=== PATIENT | female | born 1970 | race Caucasian/White ===

== ENCOUNTER 2020-02-25 10:35 | Outpatient (REF) | payer MEDICAID, SELFPAY ==
--- NOTE | 2020-02-25 | US_ITS ---
EXAMINATION: US COMPLETE ABDOMEN WITH LIVER ELASTOGRAPHY CLINICAL INFORMATION: Chronic hepatitis C. COMPARISON: CT abdomen and pelvis IV contrast 05/27/2019 TECHNIQUE: Real-time imaging of the abdominal viscera. Noninvasive ultrasound liver fibrosis assessment is performed using Timi ElastPQ point quantification shear wave elastography (pSWE) with a 5 MHz transducer. Multiple elastography samples are obtained. FINDINGS: PANCREAS: Normal. The visualized pancreatic head and body are normal in appearance. The remainder of the pancreas is obscured from visualization by the overlying bowel gas. ABDOMINAL AORTA: The proximal, middle and distal aortic segments are normal in caliber. INFERIOR VENA CAVA: Visualized portions are normal. LIVER: Normal. The liver demonstrates normal size, contour and echogenicity. There is an anechoic cyst right hepatic lobe measuring 0.6 x 0.6 x 0.7 cm. No additional lesions seen. The right lobe measures 15.7 cm in length. The left lobe measures 12.6 cm in length. There is normal hepatopedal flow seen in the main portal vein on Doppler exam. Shear wave elastography provides a median stiffness of 1.74 m/s (reference: normal median stiffness is 0.81 - 1.22 m/s). The IQR/median stiffness to assess sampling precision is 0.21 (reference: optimal IQR/median stiffness is under 0.3). GALLBLADDER: The gallbladder has been surgically removed. COMMON BILE DUCT: Normal in caliber measuring 1.0 cm in diameter. RIGHT KIDNEY: There is an anechoic cyst midpole measuring 0.6 x 0.6 x 0.8 cm. No additional cyst seen. No hydronephrosis. No renal calculi or other focal parenchymal lesions. The kidney measures 11.6 cm in maximum dimension. LEFT KIDNEY: Normal. No hydronephrosis. No renal calculi or focal parenchymal lesions. The kidney measures 11.4 cm in maximum dimension. SPLEEN: Normal. The spleen measures 11.1 cm in maximum dimension. FREE FLUID: None. IMPRESSION: 1. Mild hepatic steatosis without focal lesion. Small cyst midpole right kidney. Gallbladder has been surgically removed. 2. Elastography: Btob-br-roczyxfa fibrosis with normal IQR median. Findings correlate with Metavir score of F2-F3.
== END 2020-02-25 10:36 | disposition home or self-care (01) ==
LOC: HO.US 10:35
PROVIDERS: PCP Internal Medicine; Visit Provider Internal Medicine
DX: B16.2 Acute hepatitis B without delta-agent with hepatic coma (principal)
CPT/HCPCS: 76705; 76981

== ENCOUNTER → 2020-05-04 13:43 | Outpatient (BNVA) | payer MEDICAID, SELFPAY | PROVIDERS: PCP Internal Medicine; Visit Provider Nurse Practitioner Family | DX: Z76.89 Persons encountering health services in other specified circumstances (principal) ==

== ENCOUNTER → 2020-06-05 14:50 | Outpatient (BNVA) | payer MEDICAID, SELFPAY | PROVIDERS: PCP Internal Medicine; Visit Provider Nurse Practitioner Family | DX: M47.816 Spondylosis without myelopathy or radiculopathy, lumbar region (principal) | CPT/HCPCS: 99202 ==

== ENCOUNTER → 2020-08-06 14:11 | Outpatient (BNVA) | payer MEDICAID, SELFPAY | PROVIDERS: PCP Internal Medicine; Visit Provider Nurse Practitioner Family ==

== ENCOUNTER → 2020-09-02 11:29 | Outpatient (BNVA) | payer MEDICAID, SELFPAY | PROVIDERS: PCP Internal Medicine; Visit Provider Nurse Practitioner Family ==

== ENCOUNTER 2020-10-20 06:30 | Outpatient (REF) | payer MEDICAID, SELFPAY ==
--- NOTE | ~2020-10-20 | FL_ITS ---
EXAMINATION: XR FLUOROSCOPY WITH IMAGES CLINICAL INFORMATION: 47.816 - Spondylosis without myelopathy or radiculopathy COMPARISON: CT abdomen and pelvis 05/27/2019 TECHNIQUE: Fluoroscopy performed by Sarahi Olivas NP. Fluoroscopy time: 0.6 minutes DAP: 6.58 Gycm2 Images: 6 FINDINGS: There is transitional vertebrae L5 with right hemisacralization. There are bilateral spinal needles seen overlying the outer aspect of the lower lumbar neural foramina with contrast noted in the nerve sheaths at L2-L3, L3-L4, L4-L5. No visible vascular communication. FL/FL guidance in treatment room IMPRESSION: Fluoroscopy for pain management procedures.
== END 2020-10-20 06:31 | disposition home or self-care (01) ==
LOC: HO.RADIR 06:30
PROVIDERS: Visit Provider Anesthesiology
DX: M47.816 Spondylosis without myelopathy or radiculopathy, lumbar region (principal)
CPT/HCPCS: 64493; 64494; Q9967

== ENCOUNTER → 2020-10-27 14:58 | Outpatient (BNVA) | payer MEDICAID, SELFPAY | PROVIDERS: Visit Provider Nurse Practitioner Family ==

== ENCOUNTER → 2020-10-29 12:09 | Outpatient (BNVA) | payer MEDICAID, SELFPAY | PROVIDERS: PCP Internal Medicine; Visit Provider Anesthesiology ==

== ENCOUNTER → 2020-12-01 15:22 | Outpatient (BNVA) | payer MEDICAID, SELFPAY | PROVIDERS: Visit Provider Nurse Practitioner Family ==

== ENCOUNTER 2021-01-28 11:58 | Day surgery (SDC) | payer MEDICAID, SELFPAY ==
[2021-01-22 11:06] VITALS: BMI 29.1
--- NOTE | 2021-01-27 10:21 | HO.ANESPROP2 ---
Documented by User: Monse Nunez NP 01/27/21 10:44 HPI - Anesthesia Eval Consult details Narrative: 50yo F for Bilateral Medial Branch Radiofrequency AB,L3-L4-DR L5 PMFSH Active Problems Active Problems: All Active Problems (Updated 07/01/20 @ 11:48 by Alexandrea Johnston, SHAE) Spondylosis of lumbar region without myelopathy or radiculopathy (Acute) Past Medical History Medical History Chronic back pain Constipation Diverticulitis Fall down stairs GERD (gastroesophageal reflux disease) Hepatitis C Hypothyroid Knee pain, left Low back pain Numbness and tingling of right arm Rectal bleeding Family History Family History Father No problems noted. Mother COPD (chronic obstructive pulmonary disease) High blood pressure Diabetes HIV (human immunodeficiency virus infection) Asthma Depression Lung cancer Maternal Grandmother Bone cancer Maternal Uncle AD (Alzheimer's disease) Lung cancer Maternal Aunt Skin cancer Surgical History Surgical History History of bowel resection History of exploratory laparotomy Social History Social History Household Members: Children Alcohol intake: never Patient Tobacco Use Status: Current everyday Tobacco user Tobacco use type: Cigarette Cigarettes Per Day: 5 Smoked in Last 30 Days: Yes Patient Given Instructions on How to Stop Smoking: Yes Date Education Initiated: 01/22/21 Use of substances other than those prescribed or required for medical reasons: Yes Substance Use Type: Marijuana Substance Use Frequency: Daily Are you DNR?: No Advance Directives: No Advance Directives Information Provided: No Advance Directives on File: No Meds Allergies Allergy/AdvReac Type Severity Reaction Status Date / Time No Known Allergies Allergy Verified 01/28/21 12:42 [No Known Allergies*] Home Medications Medication Instructions Recorded Confirmed Last Taken Type clonazepam 0.5 mg tablet 0.5 mg PO TID 05/04/20 01/22/21 01/28/21 06:00 History levothyroxine 125 mcg capsule 125 mcg PO DAILY 05/04/20 01/22/21 01/28/21 06:00 History loratadine 10 mg tablet (Claritin) 10 mg PO DAILY 05/04/20 01/22/21 Unknown History methocarbamol 750 mg tablet 750 mg PO Q8H 05/04/20 01/22/21 Unknown History (Robaxin-750) zolpidem 5 mg tablet (Ambien) 5 mg PO BEDTIME PRN 05/04/20 01/22/21 Unknown History omeprazole 20 mg capsule,delayed 10 mg PO DAILY cap 10/27/20 01/22/21 01/28/21 06:00 History release Exam Exam Date and Time: January 27, 2021 1021 Height,Weight and Vital Signs: Height 5 ft 4 in Weight 77.1 kg Assessment and Plan Assessment Anesthesia Assessment: Chart Reviewed Documented by User: Evan Franklin MD 01/28/21 13:10 [facility] Past Medical History Medical History Chronic back pain Constipation Diverticulitis Fall down stairs GERD (gastroesophageal reflux disease) Hepatitis C Hypothyroid Knee pain, left Low back pain Numbness and tingling of right arm Rectal bleeding Family History Family History Father No problems noted. Mother COPD (chronic obstructive pulmonary disease) High blood pressure Diabetes HIV (human immunodeficiency virus infection) Asthma Depression Lung cancer Maternal Grandmother Bone cancer Maternal Uncle AD (Alzheimer's disease) Lung cancer Maternal Aunt Skin cancer Family history of problems with anesthesia: No Surgical History Surgical History History of bowel resection History of exploratory laparotomy History of Problems with Anesthesia: No Social History Social History Household Members: Children Alcohol intake: never Patient Tobacco Use Status: Current everyday Tobacco user Tobacco use type: Cigarette Cigarettes Per Day: 5 Smoked in Last 30 Days: Yes Patient Given Instructions on How to Stop Smoking: Yes Date Education Initiated: 01/22/21 Use of substances other than those prescribed or required for medical reasons: Yes Substance Use Type: Marijuana Substance Use Frequency: Daily Are you DNR?: No Advance Directives: No Advance Directives Information Provided: No Advance Directives on File: No Meds Allergies Allergy/AdvReac Type Severity Reaction Status Date / Time No Known Allergies Allergy Verified 01/28/21 12:42 [No Known Allergies*] Home Medications Medication Instructions Recorded Confirmed Last Taken Type clonazepam 0.5 mg tablet 0.5 mg PO TID 05/04/20 01/22/21 01/28/21 06:00 History levothyroxine 125 mcg capsule 125 mcg PO DAILY 05/04/20 01/22/21 01/28/21 06:00 History loratadine 10 mg tablet (Claritin) 10 mg PO DAILY 05/04/20 01/22/21 Unknown History methocarbamol 750 mg tablet 750 mg PO Q8H 05/04/20 01/22/21 Unknown History (Robaxin-750) zolpidem 5 mg tablet (Ambien) 5 mg PO BEDTIME PRN 05/04/20 01/22/21 Unknown History omeprazole 20 mg capsule,delayed 10 mg PO DAILY cap 10/27/20 01/22/21 01/28/21 06:00 History release Exam Airway Mallampati Class: II TM Dist: >3cm Neck ROM: Full Loose/Missing/Broken Teeth: No Heart: rrr+[id number] Lungs: cta b/l Assessment and Plan Assessment Anesthesia Assessment: Anesthesia Plan Discussed and PAT Visit Final Anesthetic Review Family History of Problems with Anesthesia: No History of Problems with Anesthesia: No NPO: Yes ASA Class: II Final Preanesthetic Review: No Changes in Pt Med Stat, Meds/Allgs Chart Reviewed, Consent Obtained/Reviewed and Anes Risks/Benef Reviewed Patient Risk: Intermediate Procedure Risk: Low Assessment/Block/Sedation in SS: Assess/Block/Sedation-SS Anesthetic Plan Anesthetic Plan: MAC: and Regional Block Disposition: Standard PACU
--- NOTE | ~2021-01-28 | FL_ITS ---
EXAMINATION: XR FLUOROSCOPY WITH IMAGES CLINICAL INFORMATION: Medial branch block. COMPARISON: RF fluoroscopy 10/20/2020. TECHNIQUE: Fluoroscopy performed by Dr. Loyd Nolan. Fluoroscopy time: 1.0 minutes DAP: 15.5 mGycm2 Images: 2 FINDINGS: There are needles positioned adjacent to L5, L4 and S1 pedicles on the right and left L5, S1 pedicles on the left for pain management. No gross bony abnormality. FL/FL guidance in OR IMPRESSION: Fluoroscopy was provided to referring physician for medial branch RFA.
[2021-01-28 12:43] VITALS: BP 131/75; PULSE 60; RESP 18; TEMP 36.6; O2SAT 97
[2021-01-28] MEDS: Lactated Ringers 1,000 ML 100 ML IVCONT (12:57)
--- NOTE | 2021-01-28 13:25 | MHC.SHP ---
Pre-Procedural Eval Section A Date of Service: 01/28/21 Section B Chief Complaint: spondylosis lumbar Details of Present Illness: as above Relevant Family History (Specify if Yes): No Relevant Social History: None Present Medications: see Short Stay Collaborative assessment Allergies: Allergies Allergy/AdvReac Type Severity Reaction Status Date / Time No Known Allergies Allergy Verified 01/28/21 12:42 [No Known Allergies*] Review of Systems Sugical H&P ROS: Negative: Constitution, Cardiovascular, Respiratory, Neurological, Psychiatric, Hem-Onc, Allergic/Immunologic, Gastrointestinal, Genitourinary, Musculoskeletal, Integumentary, Endocrine and Eyes/Ears/Nose/Throat Exam Surgical H&P Exam: Normal: HEENT, Normal: Heart, Normal: Lungs, Normal: Extremities, Normal: Abdomen, Normal: Skin and Normal: Neurological Plan Diagnosis/Plan: Unchanged I have reviewed the history and physical and performed a pertinent physical examination on my patient. No changes have occurred unless specified.
[2021-01-28 14:40] VITALS: BP 151/81; PULSE 54; RESP 20; TEMP 36.9; O2SAT 96
--- NOTE | 2021-01-28 14:40 | P.BOP_ITS ---
Brief Operative Note Date of Service: 01/28/21 Pre-op diagnosis: Spondylosis lumbar spine Post-op diagnosis: same Procedure: Radiofrequency ablation bilateral L3-L4 does ramus L5 medial branches Implants: None Surgeon: Loyd Nolan MD Anesthesia: MAC Was an Senior Clinical Consultant used for this Procedure?: No Estimated blood loss (mL): 6 Pathology: none sent Condition: stable Disposition: PACU
--- NOTE | 2021-01-28 14:41 | W.PM.OPN ---
Operative Note Operative Note Date of Service: 01/28/21 Narrative: Informed consent of was obtained on the patient, risks and benefits explained, patient signed informed consent. She was brought to the operating room and she was positioned prone on the operating table. [place] monitors were applied patient was moderately sedated. Time-out was performed delineating name and date of of the patient, nature of the procedure, risk of fire, need for antibiotics, need for DVT prophylaxis,. The patient's lower back was prepped with ChloraPrep twice and draped with stick utility towel. Sterilely draped C-arm was brought over the operating field and sq picture of the L4 and L5 vertebra as well as sacral bone were demonstrated on the screen. Tilting machine ipsilateral to each side as well as few degrees to the foot the position of the each target was delineated on the screen. The targets were delineated as the confluence of the superior articular process of L4 with corresponding transverse process bilaterally, as well as consult ends of the superior articular process of L5 with corresponding transverse process bilaterally as well as connection of superior articular process of S1 bilaterally with bilateral sacral alae. Projection of the point of interest to the skin was injected with small amount of mixture of lidocaine 2% and bupivacaine 0.5%. After that radiofrequency cannulas 100 mm long was driven to were the point of interest under x-ray guidance. When needles reached the point of interests on the right and sequentially on the left the stylets were removed from the needles and nitinol testing stylets were inserted into the cannulas. Motor and sensory testing was performed there were no response to motor testing indicating stimulation of the somatic nerve. After that the nitinol wires were removed, the cannulas were injected with small amount of mixture of lidocaine 2% with bupivacaine 0.5% and trace amount of Kenalog. After that the needle wires were reinserted and the energy application was performed for 90 seconds and 89?. After that the I rotation of the needles was done and energy application was repeated. The patient tolerated procedure fairly well the needles were removed sterile dressing was applied. Patient was awaken taken outside of the operating room to recovery room where she recovered uneventfully. She went home without immediate complications.
[2021-01-28] MEDS: oxyCODONE HCl Immed Release 5 MG TABLET 10 MG PO (14:49)
[2021-01-28] MEDS: Acetaminophen 325 MG TABLET 650 MG PO (14:49)
[2021-01-28 14:57] VITALS: BP 160/93; PULSE 50; RESP 18; O2SAT 98
== END 2021-01-28 15:31 | disposition home or self-care (01) ==
PROVIDERS: PCP Internal Medicine; Visit Provider Anesthesiology
PROC: (CPT 64635; principal; 2021-01-28 13:20)
DX: M47.816 Spondylosis without myelopathy or radiculopathy, lumbar region (principal); M43.16 Spondylolisthesis, lumbar region; M54.5 Low back pain
CPT/HCPCS: 64635; 64636 ×2; J2250; J3010; J3300

== ENCOUNTER → 2021-02-01 13:51 | Outpatient (BNVA) | payer MEDICAID, SELFPAY | PROVIDERS: PCP Internal Medicine; Visit Provider Anesthesiology | DX: M47.816 Spondylosis without myelopathy or radiculopathy, lumbar region (principal) | CPT/HCPCS: 99212 ==

== ENCOUNTER → 2021-03-03 10:26 | Outpatient (BNVA) | payer MEDICAID, SELFPAY | PROVIDERS: PCP Internal Medicine; Visit Provider Anesthesiology | DX: M47.816 Spondylosis without myelopathy or radiculopathy, lumbar region (principal) | CPT/HCPCS: 99212 ==

== ENCOUNTER → 2021-03-31 14:03 | Outpatient (BNVA) | payer MEDICAID, SELFPAY | PROVIDERS: PCP Internal Medicine; Visit Provider Nurse Practitioner Family ==

== ENCOUNTER 2021-04-22 13:58 | Outpatient (REF) | payer MEDICAID, SELFPAY ==
--- NOTE | ~2021-04-22 | XR_ITS ---
EXAMINATION: XR LUMBOSACRAL SPINE CLINICAL INFORMATION: Spondylosis without myelopathy or radiculopathy, lumbar region COMPARISON: CT abdomen pelvis 05/27/2019. XR lumbar spine 11/19/2018. TECHNIQUE: AP and lateral views of the lumbosacral spine are obtained. A lateral coned-down view of the lumbosacral junction is obtained. FINDINGS: The transitional vertebra at the lumbosacral junction with partial sacralization of the right L5 vertebra is again noted. There is new mild disc space narrowing and a mild grade 1 anterolisthesis of L4 on L5. There is mild bilateral facet arthropathy in the lower lumbar levels. XR/XR lumbar spine 2-3V IMPRESSION: New mild disc space narrowing at L4-L5 and mild grade 1 anterolisthesis of L4. Partial sacralization of the right side of the L5 vertebra is again noted.
== END 2021-04-22 13:59 | disposition home or self-care (01) ==
LOC: HO.XRAY 13:58
PROVIDERS: PCP Internal Medicine; Visit Provider Nurse Practitioner Family
DX: M47.816 Spondylosis without myelopathy or radiculopathy, lumbar region (principal)
CPT/HCPCS: 72100

== ENCOUNTER 2022-03-04 15:57 | Outpatient (REF) | payer MEDICAID, SELFPAY ==
--- NOTE | ~2022-03-04 | MR_ITS ---
EXAMINATION: MR LUMBAR SPINE WITHOUT CONTRAST CLINICAL INFORMATION: Lower back pain COMPARISON: Lumbar spine x-ray 04/22/2021 TECHNIQUE: MRI of the lumbar spine was obtained using routine sequences without contrast. FINDINGS: Transitional lumbosacral anatomy. In keeping with prior numbering, the last well-formed disc space is designated L5-S1 with partial sacralization of L5 which articulates with the sacrum on the right. There is suggestion of a hypoplastic rib on the right at T12 Stable grade 1 anterolisthesis of L4 on L5 measuring 4 m 5 mm. No suspicious marrow signal or focal osseous lesion. The vertebral body heights are maintained. There is disc desiccation at L4-L5 with relative preservation of disc height. The conus medullaris terminates at the level of T12-L1. The distal spinal cord is normal in appearance. The cauda equina nerve roots appear normal. No significant abnormalities of the paraspinal musculature.. Limited evaluation of the intra-abdominal structures without significant abnormalities. Small right renal cyst. The abdominal aorta is of normal contour and caliber. SPINAL LEVELS: T12-L1: No significant spinal canal or neural foraminal narrowing L1-L2: No significant spinal canal or neuroforaminal narrowing. L2-L3: No significant spinal canal or neuroforaminal narrowing. L3-L4: No significant spinal canal or neuroforaminal narrowing. Shallow disc bulge and mild facet arthropathy. L4-L5: Anterolisthesis with posterior disc uncovering. Severe facet arthropathy with large bilateral joint effusions. Mild central spinal canal stenosis. Moderate bilateral neural foraminal narrowing with possible impingement of the right greater than left extraforaminal nerve roots L5-S1: No significant spinal canal or neuroforaminal narrowing. A right lateral disc protrusion may impinge the extraforaminal right L5 nerve root. MR/MR lumbar spine wo con IMPRESSION: 1. Transitional lumbosacral anatomy with partial sacralization of L5 2. At L4-L5, there is stable grade 1 anterolisthesis on the basis of advanced facet arthropathy with large joint effusions. There is mild spinal canal stenosis and moderate bilateral neural foraminal narrowing with possible impingement of the right greater than left extraforaminal nerve roots. 3. L5-S1, a right lateral disc protrusion may impinge the extraforaminal right L5 nerve root.
== END 2022-03-04 15:58 | disposition home or self-care (01) ==
LOC: HO.MRI 15:57
PROVIDERS: Visit Provider Internal Medicine
DX: M54.41 Lumbago with sciatica, right side (principal); M54.42 Lumbago with sciatica, left side
CPT/HCPCS: 72148

== ENCOUNTER 2023-02-24 11:13 | Outpatient (AMB) | payer MEDICAID, SELFPAY ==
--- NOTE | 2023-02-24 07:40 | A.OFFVIS_ITS ---
Intake Intake Visit Reasons: LDCT SD Allergies No Known Allergies [No Known Allergies*] Allergy (Verified 03/31/21 14:04) HPI LDCT SD HPI Details Initial telehealth phone visit for this 52yo smoker with a 20PYH. Patient has been smoking since age 20 for 32 years at 1/2-1ppd. She is currently down to 3 cig/day. . Denies marijuana use. Denies second hand smoke exposure. Denies exposure to chemicals or substances like asbestos. . Denies known family history of lung cancer. Denies personal history of cancers. . Denies chest CT in last year. Abdominal CT done 05/27/2019 noted a 0.2cm granuloma in RLL . Denies recent travel outside the [place]. Denies recent respiratory illness or recent hospitalization for respiratory issues. Reports testing positive for COVID once. Denies receiving COVID Vaccine. . Denies fever, chills, new/worsening cough, hemoptysis, hoarseness or dysphagia. Denies significant chest pain, significant dyspnea or unintentional weight loss. Patient Lung Cancer Screening Questionnaire reviewed with patient by provider. . Shared Decision Making Completed. Patient meets criteria. Discussed in detail with patient, the risk vs benefit of LDCT screening. Patient consents to proceed with scan. Discussed smoking cessation. [facility] Medical History (Updated 02/24/23 @ 09:15 by Idalia Cotto PA-C) Microscopic hematuria Hypothyroid Hepatitis C GERD (gastroesophageal reflux disease) Diverticulitis Rectal bleeding Constipation Nicotine dependence, cigarettes, uncomplicated Chronic back pain Knee pain, left Numbness and tingling of right arm Fall down stairs Surgical History (Updated 02/02/23 @ 12:54 by Idalia Cotto PA-C) History of radiofrequency ablation (RFA) of nerve of lumbar spine History of cholecystectomy History of bowel resection History of exploratory laparotomy Family History Father No problems noted. Mother COPD (chronic obstructive pulmonary disease) High blood pressure Diabetes HIV (human immunodeficiency virus infection) Asthma Depression Lung cancer Maternal Grandmother Bone cancer Maternal Uncle AD (Alzheimer's disease) Lung cancer Maternal Aunt Skin cancer Social History (Updated 02/24/23 @ 09:17 by Idalia Cotto PA-C) Household Members: Children Alcohol intake: never Patient Tobacco Use Status: Current everyday Tobacco user Tobacco use type: Cigarette Cigarettes Per Day: 3 Years Smoked: (onset 20to, 1/2-1ppd x 32yrs, now 3cig/day - 20pyh) Substance Use Type: Marijuana Assessment & Plan Assessment & Plan (1) Nicotine dependence, cigarettes, uncomplicated: Comment: (Smoker - onset 20yo, 1/2-1ppd x 32yrs, now 3cig/day - 20pyh) Code(s): F17.210 - Nicotine dependence, cigarettes, uncomplicated Plan: - Telehealth SDM visit completed today via phone. - Patient meets criteria for LDCT for lung cancer screening purposes and is asymptomatic. - Smoking cessation counseling offered. Patients can always call [phone]. - Will arrange for a LDCT scan of the chest for screening purposes at [facility]. - Risks, benefits, and alternatives were discussed in detail and the patient agrees to proceed. - Risks discussed include but are not limited to: radiation exposure, anxiety during testing and while awaiting results, false negatives, false positives and possibility of additional intervention such as further imaging or surgical procedures for benign disease. - Benefits are obviously detection of lung cancer at an early stage which can lead to improved outcomes. - Discussed the importance of screening program compliance with adherence to yearly LDCT scan as scheduled - or sooner interval scans for personalized screening regimen. - Discussed follow up plan. Our office will send a letter discussing results and if needed set up phone call and office visit based on CT findings. - Patient educated on results categorization and the management decisions for suspicious findings potentially found on the screening LDCT scan. Any patient with a Lung RADS score of 3 or 4 will be reviewed by a multidisciplinary team at [facility] to form a plan of action in regards to scan findings. - If further work up is warranted for a suspicious lung finding this will be followed by the Lung Cancer Screening program in conjunction with the Thoracic Surgery Department at [facility]. - A copy of the office note and LDCT will be sent to the patient's PCP - as well as documentation on any associated further plans of care. - Incidental findings on LDCT are the PCP's responsibility. These findings are indicated with an S finding on the LDCT Assessment. A note discussing the findings will be sent to the PCP who is then responsible for further management. - All questions answered.? 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
== END 2023-02-24 11:15 | disposition home or self-care (01) ==
LOC: HO.HMS 11:13
PROVIDERS: PCP Internal Medicine; Visit Provider Physician Assistant Medical
DX: F17.210 Nicotine dependence, cigarettes, uncomplicated (principal)
CPT/HCPCS: G0296

== ENCOUNTER 2023-02-24 15:04 | Outpatient (REF) | payer MEDICAID, SELFPAY ==
--- NOTE | ~2023-02-24 | CT_ITS ---
EXAMINATION: CT CHEST LOW-DOSE SCREENING WITHOUT CONTRAST HISTORY: Asymptomatic patient meeting criteria for lung screening. PATIENT PACK-YEAR HISTORY: 32 Current Smoker: Yes If former smoker, years since quitting: COMPARISON: None available. TECHNIQUE: Multidetector volumetric non-contrast CT imaging of the chest was performed using low dose screening CT technique. Axial thin section 0.625 mm reformations in soft tissue and lung windows were obtained. Sagittal and coronal reformations were obtained. Axial MIP images were also created and reviewed. RECONSTRUCTED WIDTH: 1.25 mm x 1.25 mm TOTAL EXAM DLP: 59 mGy-cm CTDIvol: 1.46 L mGy FINDINGS: LUNGS: Mild centrilobular emphysema. No suspicious pulmonary nodule. No focal consolidation. Central airways are patent. PLEURA: No pleural effusion. LYMPH NODES: No bulky mediastinal, hilar or axillary lymphadenopathy. MEDIASTINUM: Great vessels are of normal caliber. Heart size is normal. No pericardial effusion. CORONARY ARTERY CALCIFICATIONS: None. CHEST WALL/BREASTS: No acute abnormality. UPPER ABDOMEN: This study was performed without contrast and with lower than standard dose, reducing the sensitivity for detection of small lesions in the upper abdomen. Status post cholecystectomy. OSSEOUS STRUCTURES: No destructive bone lesions. CT/CT lung screening IMPRESSION: No suspicious pulmonary nodule. LUNG-RADS CATEGORY ASSESSMENT: 1. Negative. No nodules or definitely benign nodules. Continue annual screening with low-dose CT in 12 months. Probability of malignancy less than 1%. INCIDENTAL FINDINGS (S CATEGORY): Finding: No incidental findings. Significance category: Normal or normal variant. RECOMMENDATION: Low dose lung CT. overall in 1 year. Visual estimate of coronary calcified plaque burden: None. However, this exam cannot replace a dedicated cardiac CT calcium score for accurate assessment. LUNG-RADS CATEGORY: 1 -- NEGATIVE
== END 2023-02-24 15:05 | disposition home or self-care (01) ==
LOC: HO.CT 15:04
PROVIDERS: PCP Internal Medicine; Visit Provider Physician Assistant Medical
DX: Z12.2 Encounter for screening for malignant neoplasm of respiratory organs (principal); F17.210 Nicotine dependence, cigarettes, uncomplicated
CPT/HCPCS: 71271; G0296

== ENCOUNTER 2023-03-15 08:56 | Outpatient (REF) | payer MEDICAID, SELFPAY ==
[2023-03-15 14:24] LABS: MANUAL DIFF FLAG NO
[2023-03-15 14:36] LABS: Basophils Percent Auto 0.4 % (0-2); Eosinophils Absolute Auto 0.1 X10*3/uL (0.0-0.4); Eosinophils Percent Auto 1.9 % (0-4); Hematocrit 37.3 % (37.0-47.0); Lymphocytes Absolute Auto 2.6 X10*3/uL (1.2-4.9); Lymphocytes Percent Auto 49.8 % (20-40); Mean Corpuscular HGB Conc 32.2 g/dl (31.0-35.0); Mean Corpuscular Hemoglobin 28.6 pg (27.0-33.0); Mean Platelet Volume 11.1 fL (9.4-12.3); Monocytes Absolute Auto 0.5 X10*3/uL (0.1-1.2); Monocytes Percent Auto 8.7 % (2-11); Neutrophils Percent Auto 39.2 % (45-73); Platelet Count 216 X10*3/uL (160-400); Red Blood Count 4.19 X10*6/uL (4.20-5.50); Red Cell Distribution Width 13.2 % (11.0-16.0); White Blood Count 5.2 X10*3/uL (4.8-10.8)
[2023-03-15 14:38] LABS: INTERNATIONAL NORM RATIO 0.9 (0.9-1.1); Prothrombin Time 11.5 SEC (11.1-13.3)
[2023-03-15 15:00] LABS: Estimated Average Glucose 100 mg/dL; Hemoglobin A1c % 5.1 % (<6.0)
[2023-03-15 15:12] LABS: Alanine Aminotransferase 10 U/L (0-31); Albumin Level 3.7 g/dL (3.5-5.0); Alkaline Phosphatase 76 U/L (39-117); Anion Gap 12 (12-20); Aspartate Amino Transferase 19 U/L (5-31); Bilirubin Total 0.4 mg/dL (0.0-1.0); Blood Urea Nitrogen 13 mg/dL (9-16); Calcium 9.3 mg/dL (8.4-10.2); Carbon Dioxide 29 mmol/L (22-29); Chloride 103 mmol/L (96-108); Cholesterol 175 mg/dL (<200); Estimated Glomerular Filt Rate > 60; Glucose Fasting 105 mg/dL (60-99); HDL Cholesterol 52 mg/dL (>40); LDL Cholesterol Calculated 109 mg/dL (<100); Potassium 3.6 mmol/L (3.3-5.1); Sodium 140 mmol/L (135-145); Total Protein 8.3 g/dL (6.5-8.0); Triglycerides 74 mg/dL (<150)
[2023-03-15 15:30] LABS: TSH reflex Free T4 1.14 uIU/mL (0.32-4.0)
[2023-03-16 04:34] LABS: HIV AB/AG Nonreactive (Nonreactive); HIV Num 1 0.07 S/CO (0.00-0.99)
[2023-03-18 15:14] LABS: HCV RNA PCR Qn 1.62 Log IU/mL (NOT DETECTED); HCV RNA PCR Qn 42 IU/mL (NOT DETECTED)
[2023-03-22 16:04] LABS: FIB-ALT 11 U/L (6-29); FIB-Alpha-2-Macroglobulin 428 mg/dL (106-279); FIB-Apolipoprotein A1 155 mg/dL (101-198); FIB-GGT 21 U/L (3-70); FIB-Haptoglobin 111 mg/dL (43-212); FIB-Total Bilirubin 0.3 mg/dL (0.2-1.2); Liver Fibrosis Score 0.37; Liver Fibrosis Stage F1-F2; Nec Inflam Act Grade A0; Nec Inflam Act Score 0.03
== END 2023-03-15 08:57 | disposition home or self-care (01) ==
LOC: HO.CHCLDS 08:56
PROVIDERS: Referring Provider Nurse Practitioner Psychiatric/Mental Health; Visit Provider Internal Medicine
DX: I10 Essential (primary) hypertension (principal); B18.2 Chronic viral hepatitis C
CPT/HCPCS: 36415; 80053; 80061; 81596; 83036; 84443; 85025; 85610; 87389; 87522

== ENCOUNTER 2023-03-22 10:41 | Outpatient (REF) | payer MEDICAID, SELFPAY ==
--- NOTE | ~2023-03-22 | XR_ITS ---
EXAMINATION: XR KNEE, RIGHT CLINICAL INFORMATION: Pain in the right COMPARISON: None available. TECHNIQUE: Four views of the right knee. FINDINGS: There is narrowing of the medial compartment of right knee joint, more prominent on weightbearing view and marginal spurring seen medially there is patellar spurring mucosal There is no joint effusion XR/XR knee RT 4V IMPRESSION: Changes of osteoarthritis more prominent in the medial compartment of right knee joint.
--- NOTE | ~2023-03-22 | XR_ITS ---
EXAMINATION: XR KNEE, LEFT CLINICAL INFORMATION: Left knee pain COMPARISON: None available. TECHNIQUE: Four views of the left knee. FINDINGS: There are mild degenerative changes with marginal spurring seen through the medial tibial plateau, medial femoral condyle, lateral tibial plateau and patella. There is no narrowing of the joint spaces and no joint effusion seen. There is no fracture or subluxation. XR/XR knee LT 4V IMPRESSION: Mild tricompartmental degenerative changes.
== END 2023-03-22 10:42 | disposition home or self-care (01) ==
LOC: HO.XRAY 10:41
PROVIDERS: PCP Internal Medicine; Visit Provider Internal Medicine
DX: M25.561 Pain in right knee (principal); M25.562 Pain in left knee; G89.29 Other chronic pain
CPT/HCPCS: 73564

== ENCOUNTER 2023-04-04 11:17 | Outpatient (REF) | payer MEDICAID, SELFPAY ==
[2023-04-07 04:29] LABS: HPV mRNA E6/E7 rflx Not Detected (Not Detected)
== END 2023-04-04 11:18 | disposition home or self-care (01) ==
LOC: HO.CHCLNP 11:17
PROVIDERS: Visit Provider Advanced Practice Midwife
DX: Z01.419 Encounter for gynecological examination (general) (routine) without abnormal findings (principal); R35.0 Frequency of micturition
CPT/HCPCS: 87086; 87624; 88142

== ENCOUNTER 2023-05-12 13:51 | Outpatient (REF) | payer MEDICAID, SELFPAY ==
--- NOTE | ~2023-05-12 | MM_ITS ---
EXAMINATION: MM SCREENING DIGITAL BREAST TOMOSYNTHESIS, BILATERAL CLINICAL INFORMATION: Screening. Asymptomatic. COMPARISON: Mammography: None. Baseline exam. TECHNIQUE: Digital breast tomosynthesis is performed in both the craniocaudal and mediolateral oblique views along with computer-aided detection (CAD). Synthesized 2D images are generated from the tomosynthesis. FINDINGS: There are scattered areas of fibroglandular density (ACR BI-RADS breast composition Category b). There are no suspicious masses, suspicious grouped calcifications, or areas of architectural distortion in either breast. The parenchymal pattern is stable from prior exams. No skin or axillary abnormalities. MM/MM tomosynthesis screening BI IMPRESSION: No mammographic evidence of malignancy. ASSESSMENT: BI-RADS BI-RADS 1 - Negative RECOMMENDATION: Routine annual mammography screening. 1 year F/U This examination should not preclude the clinical evaluation of a suspicious palpable abnormality. This patient's information was entered into a reminder system with a target due date for their next mammogram.
== END 2023-05-12 13:52 | disposition home or self-care (01) ==
LOC: HO.MAMMO 13:51
PROVIDERS: PCP Internal Medicine; Visit Provider Internal Medicine
DX: Z12.31 Encounter for screening mammogram for malignant neoplasm of breast (principal)
CPT/HCPCS: 77063; 77067

== ENCOUNTER → 2023-05-12 14:15 | Outpatient (BNV) | payer MEDICAID, SELFPAY | PROVIDERS: PCP Internal Medicine; Visit Provider Radiology Diagnostic Radiology | DX: Z12.31 Encounter for screening mammogram for malignant neoplasm of breast (principal) | CPT/HCPCS: 77063; 77067 ==

== ENCOUNTER 2023-11-16 14:33 | Outpatient (REF) | payer MEDICAID, SELFPAY ==
[2023-11-16 17:36] LABS: MANUAL DIFF FLAG NO
[2023-11-16 17:47] LABS: Basophils Percent Auto 0.3 % (0-2); Eosinophils Absolute Auto 0.1 X10*3/uL (0.0-0.4); Hematocrit 38.3 % (37.0-47.0); Imm Gran Abs Auto 0.01 X10*3/uL (0.00-0.03); Imm Gran Pct Auto 0.2 % (0.0-0.4); Lymphocytes Absolute Auto 3.1 X10*3/uL (1.2-4.9); Lymphocytes Percent Auto 50.7 % (20-40); Mean Corpuscular HGB Conc 33.9 g/dl (31.0-35.0); Mean Corpuscular Volume 85.5 fL (80.0-98.0); Mean Platelet Volume 11.2 fL (9.4-12.3); Monocytes Absolute Auto 0.4 X10*3/uL (0.1-1.2); Monocytes Percent Auto 6.6 % (2-11); Neutrophils Absolute Auto 2.5 x10*3/uL (2.0-8.3); Neutrophils Percent Auto 41.2 % (45-73); Platelet Count 217 X10*3/uL (160-400); Red Blood Count 4.48 X10*6/uL (4.20-5.50); Red Cell Distribution Width 12.8 % (11.0-16.0)
[2023-11-16 17:56] LABS: Alanine Aminotransferase 10 U/L (0-31); Albumin Level 4.3 g/dL (3.5-5.0); Alkaline Phosphatase 77 U/L (39-117); Anion Gap 13 (12-20); Aspartate Amino Transferase 13 U/L (5-31); Bilirubin Direct 0.1 mg/dL (0.0-0.5); Bilirubin Total 0.3 mg/dL (0.0-1.0); Blood Urea Nitrogen 22 mg/dL (9-16); Calcium 10.4 mg/dL (8.4-10.2); Carbon Dioxide 29 mmol/L (22-29); Chloride 104 mmol/L (96-108); Estimated Glomerular Filt Rate > 60; Glucose Random 89 mg/dL (60-115); Potassium 4.3 mmol/L (3.3-5.1); Sodium 142 mmol/L (135-145); Total Protein 8.4 g/dL (6.5-8.0)
[2023-11-16 18:14] LABS: TSH reflex Free T4 1.21 uIU/mL (0.32-4.0)
[2023-11-17 15:03] LABS: Triiodothyronine T3 Total 103 ng/dL (76-181)
[2023-11-18 14:58] LABS: HCV Log PCR <1.18 NOT DETECTED Log IU/mL (NOT DETECTED); HepC Viral Load <15 NOT DETECTED IU/mL (NOT DETECTED)
== END 2023-11-16 14:34 | disposition home or self-care (01) ==
LOC: CF 14:33
PROVIDERS: Visit Provider Pediatrics
DX: B18.2 Chronic viral hepatitis C (principal); E03.9 Hypothyroidism, unspecified
CPT/HCPCS: 36415; 80048; 80076; 84443; 84480; 85025; 87522

== ENCOUNTER 2024-09-27 10:15 | Outpatient (REF) | payer MEDICAID, SELFPAY ==
--- OUTSIDE RECORDS SUMMARY | 2024-09-27 10:28 | XMS_ITS | Encounter Summary ---
Author Organization [employer] Address [address] [facility] [address] [place] [address] Care Team Providers Care Sprinkler Fitter Helper Name Role Phone Alexander La MD Primary Care Prov ider Reason for Visit * Reason Onset Date Comments Results 11/29/2023 Encounter Details Date Type Department Care Team ([facility] st Contact Info) Description 11/29/2023 Telephone [facility] [address] [place] [address] Alexander La MD [address] [place] [address] Results Social History Tobacco Use Types Packs/Day Years Used Date Smoking Tobacco: Every Day Cigarettes 0.5 30 Passive Smoke Exposure: Current Smokeless Tobacco: Never Alcohol Use Standard Drinks/Week Comments Never 0 (1 standard drink = 0.6 oz pur e alcohol) Housing Stability Answer Date Recorded What is your housing situation today? I do not have housing (Staying with others, in a hotel, in a senior care, living outside on the street, on a beach, in a car, or in a park 03/08/[address] you li ve. Do you have problems with any of the following? None of the above 03/08/2023 Food Insecurity Answer Date Recorded Within the past 12 months, y ou worried that your food would run out before you got money to buy more: Never True 03/08/2023 Within the past 12 months,th e food you bought just didn't last and you didn't have enough money to get more: Never True 05/2022 Transportation Answer Date Recorded In the past 12 months, has l ack of transportation kept you from medical appts, meetings, work or from getting things needed for daily living? Yes, it has kept me from medical appointments or getting medications. 03/08/2023 Utilities Answer Date Recorded In the past 12 months, has t he electric, gas, oil or water company threatened to shut off services in your home? No 03/08/2023 Comments No Sex and Gender Information Value Date Recorded Sex Assigned at Female 03/07/2022 10:15 AM EDT Legal Sex Female 10:15 AM EDT Gender Identity Choose not to disclose 10:15 AM EDT Sexual Orientation Choose not to disclose 2021 10:15 AM EDT documented as of this encounter Miscellaneous Notes * Telephone Encounter - Lise Horan RN - 11/29/2023 3:25 PM EDT T/C to pt. To inform that provider ordered MRI. Pt. Verbally agreed and understood. * Telephone Encounter - Lise Horan RN - 11/29/2023 1:07 PM EDT T/C to pt. For below message, pt. Verbally greed and understood for result. Pt. Also asking for order MRI for back pain. States she spoke with provider for MRI. Please review and advise for MRI request. * Telephone Encounter - Lise Horan RN - 11/29/2023 11:59 AM EDT Please review and advise for below message, result is in pt.'s chart. * Telephone Encounter - Corina Alan - 11/29/2023 11:31 AM EDT Tc from pt requesting a call back with lab results from 11/15 documented in this encounter Plan of Treatment Upcoming Encounters Date Type Department Care Team (Late st Contact Info) Description 10/02/2024 3:00 PM EDT Office Visit [facility] D[facility] [address] [place] [address] Aminata Rosas DMD 02/21/2025 2:00 PM EDT Office Visit [facility] [address] [place] [address] Loy Melchor documented as of this encounter Visit Diagnoses Not on filedocumented in this encounter Care Teams Sprinkler Fitter Helper Relationship Specialty Start Date End Date McAlexander Valenzuela MD [address] [place] [address] PCP - General Internal Medicine 09/24/19 Jani Coreas Research AdministratorSupervisor Shuttle Fitting 01/25/23 Doug Posada Jr Research AdministratorSupervisor Shuttle Fitting 05/13/24 documented as of this encounter
[2024-09-27 14:20] LABS: MANUAL DIFF FLAG NO
[2024-09-27 14:26] LABS: Basophils Percent Auto 0.4 % (0-2); Eosinophils Absolute Auto 0.1 X10*3/uL (0.0-0.4); Eosinophils Percent Auto 0.8 % (0-4); Hematocrit 38.2 % (37.0-47.0); Hemoglobin 12.9 g/dl (12.0-16.0); Imm Gran Abs Auto 0.01 X10*3/uL (0.00-0.03); Imm Gran Pct Auto 0.1 % (0.0-0.4); Lymphocytes Absolute Auto 3.1 X10*3/uL (1.2-4.9); Lymphocytes Percent Auto 42.5 % (20-40); Mean Corpuscular HGB Conc 33.8 g/dl (31.0-35.0); Mean Corpuscular Hemoglobin 28.9 pg (27.0-33.0); Mean Corpuscular Volume 85.5 fL (80.0-98.0); Mean Platelet Volume 10.6 fL (9.4-12.3); Monocytes Absolute Auto 0.5 X10*3/uL (0.1-1.2); Monocytes Percent Auto 7.2 % (2-11); Neutrophils Absolute Auto 3.6 x10*3/uL (2.0-8.3); Platelet Count 238 X10*3/uL (160-400); Red Blood Count 4.47 X10*6/uL (4.20-5.50); Red Cell Distribution Width 12.8 % (11.0-16.0); White Blood Count 7.3 X10*3/uL (4.8-10.8)
[2024-09-27 14:54] LABS: Alanine Aminotransferase 17 U/L (0-31); Alkaline Phosphatase 81 U/L (39-117); Anion Gap 11 (12-20); Aspartate Amino Transferase 30 U/L (5-31); Bilirubin Total 0.3 mg/dL (0.0-1.0); Blood Urea Nitrogen 25 mg/dL (9-16); Calcium 9.2 mg/dL (8.4-10.2); Carbon Dioxide 30 mmol/L (22-29); Chloride 105 mmol/L (96-108); Cholesterol 176 mg/dL (<200); Estimated Glomerular Filt Rate > 60; Glucose Random 74 mg/dL (60-115); HDL Cholesterol 41 mg/dL (>40); LDL Cholesterol Calculated 103 mg/dL (<100); Sodium 142 mmol/L (135-145); TSH reflex Free T4 3.71 uIU/mL (0.32-4.0); Total Protein 7.6 g/dL (6.5-8.0); Triglycerides 160 mg/dL (<150)
[2024-09-30 08:04] LABS: ~HepC Num1 14.62 S/CO (0.00-0.79); ~Hepatitis C Antibody Reactive (Nonreactive)
[2024-10-02 18:19] LABS: HCV Log PCR <1.18 NOT DETECTED Log IU/mL (NOT DETECTED); HepC Viral Load <15 NOT DETECTED IU/mL (NOT DETECTED)
== END 2024-09-27 10:16 | disposition home or self-care (01) ==
LOC: HO.CHCLDS 10:15
PROVIDERS: Visit Provider Internal Medicine
DX: I10 Essential (primary) hypertension (principal)
CPT/HCPCS: 36415; 80053; 80061; 84443; 85025; 86803; 87522

== ENCOUNTER 2024-10-10 11:05 | Emergency (ER) | payer MEDICAID, SELFPAY ==
--- NOTE | ~2024-10-10 | CT_ITS ---
EXAMINATION: CT ABDOMEN PELVIS WITH IV CONTRAST HISTORY: abdominal pain, R CVA TTP COMPARISON: Comparison is made with the prior examination dated 05/27/2019. TECHNIQUE: CT scan of the abdomen and pelvis was performed following administration of 85 mL Omnipaque 350 using standard departmental protocol. Coronal and sagittal reformatted images were generated and reviewed. Oral contrast material was not administered at the request of the referring physician. This CT exam was performed with one or more of the following dose reduction techniques: automated exposure control, adjustment of the mA and/or kV according to patient size, use of iterative reconstruction technique. DLP: 655 mGy-cm FINDINGS: LOWER CHEST: The visualized lung bases are clear. There is no pleural effusion. CARDIOVASCULATURE: The heart is normal in size. There is no pericardial effusion. LIVER: The liver demonstrates a somewhat nodular contour, suggestive of cirrhosis. No liver mass is identified. The hepatic and portal veins are patent. GALLBLADDER / BILE DUCTS: The gallbladder is surgically absent. Prominence of the common bile duct is unchanged and is likely on the basis of prior cholecystectomy. SPLEEN: The spleen is normal in size. No focal splenic lesion is identified. PANCREAS: The pancreas is unremarkable in appearance. ADRENAL GLANDS: Within normal limits. KIDNEYS/RETROPERITONEUM: No renal calculi are identified. There is no hydronephrosis. There is a 1.1 cm cyst at the anterior aspect of the right kidney. LYMPH NODES: No abdominal or pelvic lymphadenopathy. VASCULATURE: The abdominal aorta is normal in caliber. MESENTERY/PERITONEUM: No free fluid. No masses. There is no free intraperitoneal gas. STOMACH: The stomach is collapsed, limiting evaluation. SMALL BOWEL: The small bowel is normal in caliber. COLON: The patient is again noted status post partial colectomy. A sigmoid anastomosis is unchanged in appearance. APPENDIX: Normal. URINARY BLADDER/PELVIC ORGANS: The urinary bladder is collapsed, limiting evaluation. The uterus and ovaries are unremarkable. BONES / SOFT TISSUES: There is grade I spondylolisthesis of L4 on L5. CT/CT abdomen pelvis w IV con IMPRESSION: Nodular liver contour, suggestive of cirrhosis. Additional incidental findings as discussed above. Electronically signed by: Perfecto Choudhary MD 10/10/2024 02:56 PM EDT RP
--- NOTE | 2024-10-10 11:10 | ED.ABDPAIN ---
HPI - Abdominal Pain General Chief Complaint: Abdominal Pain Stated Complaint: LOW ABD PAIN X4D,DIARRHEA X2D PER MS Time Seen by Provider: 10/10/24 11:10 History of Present Illness ED Provider: Arnoldo Hopkins PA-C HPI narrative: 54-year-old female with past medical history of hypothyroidism, hepatitis-C, GERD, chronic back pain, diverticulitis, presents to the ED today due to abdominal pain and diarrhea. Patient states abdominal pain began 4 days ago with chills and diarrhea starting yesterday (10/09) and is associated with nausea. She states pain has been increasing in intensity since yesterday. She reports taking Motrin this morning Rounds exam with no effect. She denies recent sick contacts. Denies chest pain, shortness of breath, vomiting, urinary symptoms, black/tarry stool. MD elicited complaint: abdominal pain Related Data Home Medications ?Medication ?Instructions ?Recorded ?Confirmed clonazepam 0.5 mg tablet 0.5 mg PO TID 05/04/20 01/22/21 levothyroxine 125 mcg capsule 125 mcg PO DAILY 05/04/20 01/22/21 loratadine 10 mg tablet (Claritin) 10 mg PO DAILY 05/04/20 01/22/21 methocarbamol 750 mg tablet 750 mg PO Q8H 05/04/20 01/22/21 (Robaxin-750) zolpidem 5 mg tablet (Ambien) 5 mg PO BEDTIME PRN Insomnia 05/04/20 01/22/21 omeprazole 20 mg capsule,delayed 10 mg PO DAILY 10/27/20 01/22/21 release Previous Rx's ?Medication ?Instructions ?Recorded bisacodyl 5 mg tablet,delayed 10 mg (2 x 5 mg) PO ONCE 1 day #2 05/04/20 release (Dulcolax (bisacodyl)) tabs polyethylene glycol 3350 17 238 g PO ONCE 1 day #238 grams 07/01/20 gram/dose oral powder (Miralax) tizanidine 2 mg tablet 4 mg (2 x 2 mg) PO .qhs PRN muscle 09/02/20 spasticity #60 tabs sennosides 8.6 mg tablet (Natural 17.2 mg (2 x 8.6 mg) PO BEDTIME 10/27/20 Senna Laxative) PRN constipation #30 tabs psyllium husk 0.52 gram capsule 0.52 g PO DAILY #30 caps 12/01/20 (Metamucil) celecoxib 200 mg capsule 200 mg PO BID for pain 30 days #60 02/25/21 caps nitrofurantoin 100 mg PO BID #14 caps 10/10/24 monohydrate/macrocrystals 100 mg capsule (Macrobid) phenazopyridine 100 mg tablet 100 mg PO TID PRN pain 6 doses #9 10/10/24 (Pyridium) tabs Allergies Allergy/AdvReac Type Severity Reaction Status Date / Time No Known Allergies Allergy Verified 10/10/24 11:26 [No Known Allergies*] Review of Systems Review of Systems CONST: Negative for fever, body aches. POS chills HENT: Negative for neck pain/stiffness, headache, congestion, sore throat, swelling. EYES: Negative for discharge/pain or vision changes. RESP: Negative for cough/hemoptysis and shortness of breath. CV: Negative chest pain, difficulty breathing, palpitations. ABD: Negative vomiting. POS abd pain, nausea. : Negative increase frequency, dysuria, blood in urine or stool. MUSC: Negative for muscle aches, edema. SKIN: Negative rash, lesions/sores. NEURO: Negative headache, dizziness, weakness. Yes all other systems are reviewed and are negative PMFSH Past Medical History Attestation statement: The following information was validated with the patient. Source: old records reviewed and nursing notes reviewed Medical History Microscopic hematuria Hypothyroid Hepatitis C GERD (gastroesophageal reflux disease) Diverticulitis Rectal bleeding Constipation Nicotine dependence, cigarettes, uncomplicated Chronic back pain Knee pain, left Numbness and tingling of right arm Fall down stairs Surgical History History of radiofrequency ablation (RFA) of nerve of lumbar spine History of cholecystectomy History of bowel resection History of exploratory laparotomy Family History Family History Father No problems noted. Mother COPD (chronic obstructive pulmonary disease) High blood pressure Diabetes HIV (human immunodeficiency virus infection) Asthma Depression Lung cancer Maternal Grandmother Bone cancer Maternal Uncle AD (Alzheimer's disease) Lung cancer Maternal Aunt Skin cancer Social History Social History Household Members: Children Alcohol intake: never Patient Tobacco Use Status: Current everyday Tobacco user Tobacco use type: Cigarette Cigarettes Per Day: 3 Years Smoked: (onset 20to, 1/2-1ppd x 32yrs, now 3cig/day - 20pyh) Substance Use Type: Marijuana Advance Directives: No Advance Directives Information Provided: No Physical Exam ED Vital Signs: Vital Signs - 24 hr 10/10/24 11:23 10/10/24 14:01 10/10/24 14:05 Temperature 98.2 F Pulse Rate 78 70 Respiratory Rate 16 16 18 Blood Pressure 120/84 131/84 Pulse Oximetry 94 97 Oxygen Delivery Method Room Air Room Air BMI result Body Mass Index 35.3 GENERAL APPEARANCE: ?AxOx4, generally well-appearing, no acute distress. HEENT: ?NC, AT. MMM. EOMI, clear conjunctiva, oropharynx clear. HEART:? Normal rate and regular rhythm, normal S1/S1, no m/r/g LUNGS:? CTAB, moving air well. No crackles or wheezes are heard. ABDOMEN: ?Soft, nontender, nondistended with good bowel sounds heard. POS suprapubic TTP, no rebound tenderness, no guarding, negative Simon's sign. BACK: R side CVA TTP EXTREMITIES: ?Without cyanosis, clubbing or edema. NEUROLOGICAL: ?Grossly nonfocal. Alert and oriented, moving all 4 extremities. Observed to ambulate with normal gait. Skin: ?Warm and dry without any rash. Medical Decision Making Medical Decision Making MDM Narrative: 54-year-old female with past medical history of hypothyroidism, hepatitis-C, GERD, chronic back pain, diverticulitis, presents to the ED today due to abdominal pain and diarrhea. Patient states abdominal pain began 4 days ago with chills and diarrhea starting yesterday (10/09) has been increasing in intensity and is associated with nausea. Will order labs, UA for evaluation. Vital signs stable, in no acute distress, nontoxic appearing. On physical exam TTP over suprapubic region, R mild CVA TTP, no guarding, no rebound tenderness- less likely appendicitis. Negative Simon's sign, no rigidity, patient without urinary symptoms. Patient afebrile- less likely pyelonephritis. Course 11:33- Patient states she is in pain and has nausea. will order 1,000mg IV Tylenol and 4mg IV zofran. 13:17- Patient UA reveals concentrated urine at 1.03, 1+ protein, 3+ urine blood, trace leukocyte esterase, 11-20 urine RBCs without urine bacteria. No concern for urine being infectious at this time. Urine shows possible kidney stone. Will obtain CT abdomen with contrast to evaluate for stone or acute abdomen. Patient states her pain is increasing and has no relief with IV Tylenol. Will medicate with 4 mg of IV morphine. 16:16- CT abdomen/pelvis does not show acute process. Incidental nodule liver indicative of cirrhosis found. At this time suspect interstitial cystitis with microscopic hematuria. Will treat with 7 day course of macrobid and 3 day course of pyridium for pain management. Patient states she has not been sexually active for 5 years, no concerns for STI. Encouraged patient to follow up with PCP for microscopic hematuria and liver findings. At this time suspect interstitial cystitis with microscopic hematuria. Differential Diagnosis Differential Diagnoses: The differential diagnosis associated with the presentation includes UTI interstitial cystitis Pyelonephritis appendicitis Diverticular disease Admission/Observation Consideration of admission/observation: Escalation of care including admission/observation considered Lab Data 10/10/24 11:35 10/10/24 11:35 Labs: Lab Results 10/10/24 10/10/24 Range/Units 11:35 11:56 WBC 6.2 (4.8-10.8) X10*3/uL RBC 4.65 (4.20-5.50) X10*6/uL Hgb 13.4 (12.0-16.0) g/dl Hct 39.7 (37.0-47.0) % MCV 85.4 (80.0-98.0) fL MCH 28.8 (27.0-33.0) pg MCHC 33.8 (31.0-35.0) g/dl RDW 12.8 (11.0-16.0) % Plt Count 240 (160-400) X10*3/uL MPV 10.0 (9.4-12.3) fL Immature Gran % (Auto) 0.2 (0.0-0.4) % Neut % (Auto) 48.3 (45-73) % Lymph % (Auto) 42.9 H (20-40) % [place] % (Auto) 7.3 (2-11) % Eos % (Auto) 1.0 (0-4) % Baso % (Auto) 0.3 (0-2) % Lymph # (Auto) 2.7 (1.2-4.9) X10*3/uL [place] # (Auto) 0.5 (0.1-1.2) X10*3/uL Eos # (Auto) 0.1 (0.0-0.4) X10*3/uL Baso # (Auto) 0.0 (0.0-0.2) X10*3/uL Abs Immat Gran (auto) 0.01 (0.00-0.03) X10*3/uL Absolute Neuts (auto) 3.0 (2.0-8.3) x10*3/uL Absolute Nucleated RBC 0.000 (0.0-0.012) X10*3/uL Nucleated RBC % (auto) 0.0 (0.0-0.2) /100WBC Sodium 142 (135-145) mmol/L Potassium 4.2 (3.3-5.1) mmol/L Chloride 108 (96-108) mmol/L Carbon Dioxide 29 (22-29) mmol/L Anion Gap 9 L (12-20) BUN 19 H (9-16) mg/dL Creatinine 0.76 (0.5-1.4) mg/dL Estim Creat Clear Calc 93.7 Estimated GFR > 60 Random Glucose 90 (60-115) mg/dL Calcium 9.6 (8.4-10.2) mg/dL Magnesium 1.9 (1.6-2.6) mg/dL Total Bilirubin 0.4 (0.0-1.0) mg/dL AST 20 (5-31) U/L ALT 6 (0-31) U/L Alkaline Phosphatase 95 (39-117) U/L Total Protein 8.1 H (6.5-8.0) g/dL Albumin 4.2 (3.5-5.0) g/dL Lipase 18 (8-78) U/L TSH 1.76 (0.32-4.0) uIU/mL Urine Color Dark Yellow Urine Appearance Clear Urine pH 6.0 (5.0-9.0) Ur Specific [place] >= 1.030 H (1.005-1.025) Urine Protein 30 (1+) H (Neg-Trace) mg/dL Urine Glucose (UA) Negative (Negative) mg/dL Urine Ketones Trace (Negative) mg/dL Urine Blood Large (3+) H (Negative) Urine Nitrite Negative (Negative) Ur Leukocyte Esterase Trace H (Negative) Urine RBC 11-20 H (0-2) /HPF Urine WBC 0-5 (0-5) /HPF Ur Squamous Epith Cells 11-20 (0-2) /HPF Urine Bacteria None Seen (None Seen) Hyaline Casts 0-2 (0-2) /LPF Independent Interpretation I performed an independent interpretation of an: CT Scan Radiology Impression Discussion of test interpretation with radiology: I have reviewed the radiologist's reading. Radiologist Impression: TECHNIQUE: CT scan of the abdomen and pelvis was performed following administration of 85 mL Omnipaque 350 using standard departmental protocol. Coronal and sagittal reformatted images were generated and reviewed. Oral contrast material was not administered at the request of the referring physician. This CT exam was performed with one or more of the following dose reduction techniques: automated exposure control, adjustment of the mA and/or kV according to patient size, use of iterative reconstruction technique. DLP: 655 mGy-cm FINDINGS: LOWER CHEST: The visualized lung bases are clear. There is no pleural effusion. CARDIOVASCULATURE: The heart is normal in size. There is no pericardial effusion. LIVER: The liver demonstrates a somewhat nodular contour, suggestive of cirrhosis. No liver mass is identified. The hepatic and portal veins are patent. GALLBLADDER / BILE DUCTS: The gallbladder is surgically absent. Prominence of the common bile duct is unchanged and is likely on the basis of prior cholecystectomy. SPLEEN: The spleen is normal in size. No focal splenic lesion is identified. PANCREAS: The pancreas is unremarkable in appearance. ADRENAL GLANDS: Within normal limits. KIDNEYS/RETROPERITONEUM: No renal calculi are identified. There is no hydronephrosis. There is a 1.1 cm cyst at the anterior aspect of the right kidney. LYMPH NODES: No abdominal or pelvic lymphadenopathy. VASCULATURE: The abdominal aorta is normal in caliber. MESENTERY/PERITONEUM: No free fluid. No masses. There is no free intraperitoneal gas. STOMACH: The stomach is collapsed, limiting evaluation. SMALL BOWEL: The small bowel is normal in caliber. COLON: The patient is again noted status post partial colectomy. A sigmoid anastomosis is unchanged in appearance. APPENDIX: Normal. URINARY BLADDER/PELVIC ORGANS: The urinary bladder is collapsed, limiting evaluation. The uterus and ovaries are unremarkable. BONES / SOFT TISSUES: There is grade I spondylolisthesis of L4 on L5. CT/CT abdomen pelvis w IV con IMPRESSION: Nodular liver contour, suggestive of cirrhosis. Additional incidental findings as discussed above. Electronically signed by: Perfecto Choudhary MD 10/10/2024 02:56 PM EDT External Record Review External record reviewed: Inpatient record, Office record and Outpatient record Chronic Conditions Patient?s care impacted by: Other (GERD, hypothyroidism, diverticulitis) Medications Administered Discontinued Medications Generic Name Dose Route Start Last Admin Trade Name Freq PRN Reason Stop Dose Admin Acetaminophen 1,000 mg in 100 mls @ 400 mls/hr 10/10/24 11:30 10/10/24 12:53 Ofirmev IV 10/10/24 11:44 Infused ONCE ONE Infusion Iohexol 100 ml 10/10/24 14:46 10/10/24 14:46 Iohexol 350 Mg/Ml 100 Ml Infus..Btl IV 10/10/24 14:47 85 ml ONCE ONE Administration Morphine Sulfate 4 mg 10/10/24 13:14 10/10/24 14:05 Morphine Sulfate 4 Mg/Ml Cartridge IVPUSH 10/10/24 13:15 4 mg ONCE ONE Administration Protocol Ondansetron HCl 4 mg 10/10/24 11:30 10/10/24 12:38 Ondansetron Hcl 4 Mg/2 Ml Vial IVPUSH 10/10/24 11:31 4 mg ONCE ONE Administration Discharge Plan Discharge Clinical Impression: Microscopic hematuria, Interstitial cystitis Patient Disposition: Home, Self-Care Instructions: Urinary Tract Infection in Women (ED), Hematuria (ED) Additional Instructions: You were evaluated in the ED today due to lower abdominal pain. Your lab work was unremarkable. Your urinalysis showed microscopic blood in the urine. The CT scan of your abdomen did not show any emergent process. It did reveal that your liver has nodules on it consistent with cirrhosis. You should follow up with your PCP due to the blood in your urine and your liver findings. You will be treated with a 7 day course of Macrobid which is an antibiotic for urinary tract infection. You will be prescribed a 3 day course of a medication called Pyridium which will help you manage the pain of your bladder. Please return to the emergency department if you have any worsening abdominal pain, fevers over 100.4?, nausea, vomiting, or any new, worsening, concerning symptoms. Prescriptions: New phenazopyridine [Pyridium] 100 mg tablet 100 mg PO TID PRN (Reason: pain) Qty: 9 0RF nitrofurantoin monohyd/m-cryst [Macrobid] 100 mg capsule 100 mg PO BID Qty: 14 0RF Rx Instructions: must administer with a meal/food No Action polyethylene glycol 3350 [Miralax] 17 gram/dose powder 238 g PO ONCE 1 Days Qty: 238 0RF Rx Instructions: Take as directed by mouth, bowel prep celecoxib 200 mg capsule 200 mg PO BID 30 Days Qty: 60 11RF zolpidem [Ambien] 5 mg tablet 5 mg PO BEDTIME PRN (Reason: Insomnia) clonazepam 0.5 mg tablet 0.5 mg PO TID levothyroxine 125 mcg capsule 125 mcg PO DAILY methocarbamol [Robaxin-750] 750 mg tablet 750 mg PO Q8H loratadine [Claritin] 10 mg tablet 10 mg PO DAILY bisacodyl [Dulcolax (bisacodyl)] 5 mg tablet,delayed release (DR/EC) 10 mg PO ONCE 1 Days Qty: 2 0RF Rx Instructions: take 2 tabs at noon the day before your colonoscopy omeprazole 20 mg capsule,delayed release(DR/EC) 10 mg PO DAILY tizanidine 2 mg tablet 4 mg PO .qhs PRN (Reason: muscle spasticity) Qty: 60 0RF psyllium husk [Metamucil] 0.52 gram capsule 0.52 g PO DAILY Qty: 30 4RF sennosides [Natural Senna Laxative] 8.6 mg tablet 17.2 mg PO BEDTIME PRN (Reason: constipation) Qty: 30 1RF Print Language: Uzbek
[2024-10-10 11:13] VITALS: BP 154/90; PULSE 86; O2SAT 97
[2024-10-10 11:23] VITALS: BP 120/84; PULSE 78; RESP 16; O2SAT 94; BMI 35.3
[2024-10-10 11:41] LABS: MANUAL DIFF FLAG NO
[2024-10-10 11:43] LABS: Basophils Percent Auto 0.3 % (0-2); Eosinophils Absolute Auto 0.1 X10*3/uL (0.0-0.4); Hematocrit 39.7 % (37.0-47.0); Hemoglobin 13.4 g/dl (12.0-16.0); Imm Gran Abs Auto 0.01 X10*3/uL (0.00-0.03); Imm Gran Pct Auto 0.2 % (0.0-0.4); Lymphocytes Absolute Auto 2.7 X10*3/uL (1.2-4.9); Lymphocytes Percent Auto 42.9 % (20-40); Mean Corpuscular HGB Conc 33.8 g/dl (31.0-35.0); Mean Corpuscular Hemoglobin 28.8 pg (27.0-33.0); Mean Corpuscular Volume 85.4 fL (80.0-98.0); Monocytes Absolute Auto 0.5 X10*3/uL (0.1-1.2); Monocytes Percent Auto 7.3 % (2-11); Neutrophils Percent Auto 48.3 % (45-73); Platelet Count 240 X10*3/uL (160-400); Red Blood Count 4.65 X10*6/uL (4.20-5.50); Red Cell Distribution Width 12.8 % (11.0-16.0); White Blood Count 6.2 X10*3/uL (4.8-10.8)
[2024-10-10 11:57] LABS: Alanine Aminotransferase 6 U/L (0-31); Albumin Level 4.2 g/dL (3.5-5.0); Alkaline Phosphatase 95 U/L (39-117); Anion Gap 9 (12-20); Aspartate Amino Transferase 20 U/L (5-31); Bilirubin Total 0.4 mg/dL (0.0-1.0); Blood Urea Nitrogen 19 mg/dL (9-16); Calcium 9.6 mg/dL (8.4-10.2); Carbon Dioxide 29 mmol/L (22-29); Chloride 108 mmol/L (96-108); Creatinine Clr Calc Pharmacy 93.7; Estimated Glomerular Filt Rate > 60; Glucose Random 90 mg/dL (60-115); Lipase 18 U/L (8-78); Magnesium 1.9 mg/dL (1.6-2.6); Potassium 4.2 mmol/L (3.3-5.1); Sodium 142 mmol/L (135-145); Total Protein 8.1 g/dL (6.5-8.0)
[2024-10-10 12:02] LABS: Appearance Urine Clear; Color Urine Dark Yellow; Glucose Urine UA Negative (Negative); Leukocyte Esterase Urine Trace (Negative); Nitrite Urine Negative (Negative); Specific Gravity - Urine >= 1.030 (1.005-1.025); UMIC TRIGGER UACC YES; Urine Blood Large (3+) (Negative); Urine Ketones Trace mg/dL (Negative); Urine Protein 30 (1+) mg/dL (Neg-Trace)
[2024-10-10 12:04] LABS: Bacteria Urine None Seen (None Seen); Hyaline Casts Urine 0-2 /LPF (0-2); WBC Urine 0-5 /HPF (0-5)
[2024-10-10 12:36] LABS: TSH reflex Free T4 1.76 uIU/mL (0.32-4.0)
[2024-10-10] MEDS: Acetaminophen 1,000 MG/100 ML PIGGYBACK 400 MG IV (12:38)
[2024-10-10] MEDS: ondansetron HCL 4 MG/2 ML VIAL IVPUSH (12:38)
--- OUTSIDE RECORDS SUMMARY | 2024-10-10 13:57 | XMS_ITS | Encounter Summary ---
Author Organization [employer] Address [address] [facility] [address] [place] [address] Care Team Providers Care All Around Presser Name Role Phone Alexander La MD Primary Care Prov ider Reason for Visit * Reason Onset Date Comments Results 11/29/2023 Encounter Details Date Type Department Care Team ([facility] st Contact Info) Description 11/29/2023 Telephone [facility] [address] [place] [address] Alexander La MD [address] [place] [address] Results Social History Tobacco Use Types Packs/Day [...] with others, in a hotel, in a skilled nursing, living outside on the street, on a [...] Care Team (Late st Contact Info) Description 10/28/2024 8:45 AM EDT Telemedicine [facility] [address] [place] [address] Alexander La MD [address] [place] [address] 02/21/2025 2:00 PM EDT Office Visit [facility] [address] [place] [address] Loy Melchor documented as of this encounter Visit Diagnoses Not on filedocumented in this encounter Care Teams All Around Presser Relationship Specialty Start Date End Date Alexander La MD [address] [place] [address] PCP - General Internal Medicine 09/24/19 Jani Coreas Clinical RnSet Staff Fitter 01/25/23 Doug Posada Jr Clinical RnSet Staff Fitter 05/13/24 documented as of this encounter
[2024-10-10 14:01] VITALS: BP 131/84; PULSE 70; RESP 16; TEMP 36.8; O2SAT 97
[2024-10-10 14:05] VITALS: RESP 18
[2024-10-10] MEDS: Morphine Sulfate 4 MG/ML CARTRIDGE IVPUSH (14:05)
[2024-10-10] MEDS: iohexoL 350 MG/ML 100 ML INFUS..BTL IV (14:46)
[2024-10-10 16:50] VITALS: BP 138/74; PULSE 74; RESP 18; TEMP 36.8; O2SAT 97
== END 2024-10-10 16:51 | disposition home or self-care (01) ==
PROVIDERS: Emergency Provider Emergency Medicine; PCP Internal Medicine
DX: N30.11 Interstitial cystitis (chronic) with hematuria (principal); R10.2 Pelvic and perineal pain; R19.7 Diarrhea, unspecified; R11.0 Nausea; Z79.899 Other long term (current) drug therapy; F17.210 Nicotine dependence, cigarettes, uncomplicated
CPT/HCPCS: 36415; 74177; 80053; 81001; 83690; 83735; 84443; 85025; 96374; 96375; 99284; J0131; J2270; J2405; Q9967

== ENCOUNTER → 2024-10-10 13:15 | Outpatient (BNV) | payer MEDICAID, SELFPAY | PROVIDERS: Emergency Provider Emergency Medicine; PCP Internal Medicine; Visit Provider Radiology Diagnostic Radiology | DX: K76.89 Other specified diseases of liver (principal) | CPT/HCPCS: 74177 ==

== ENCOUNTER 2024-10-31 13:33 | Outpatient (REF) | payer MEDICAID, SELFPAY ==
--- NOTE | ~2024-10-31 | US_ITS ---
EXAMINATION: US PELVIS TRANSABDOMINAL AND TRANSVAGINAL HISTORY: PELVIC PERINEAL PAIN COMPARISON: Correlation is made with a CT of the abdomen and pelvis with contrast dated 10/10/2024. TECHNIQUE: Transabdominal and endovaginal real-time 2D eastman-scale ultrasound was performed. FINDINGS: Uterus: The uterus is normal in size, measuring 7.1 x 4.1 x 4.9 cm. Myometrium demonstrates heterogeneous echotexture. There are multiple fibroids noted including a right-sided fibroid measuring 5 x 3 x 6 mm, a fundal fibroid measuring 18 x 18 x 20 mm, and a left-sided fibroid measuring 8 x 9 x 7 mm. Endometrium: The endometrial stripe measures 3 mm in thickness. There are nabothian cysts in the cervix. Right ovary: The right ovary measures 2.3 x 1.3 x 1.5 cm. There is a 6 mm echogenic focus in the right ovary which may represent a tiny hemorrhagic cyst. Left ovary: The left ovary measures 2.3 x 1.7 x 1.5 cm. The left ovary is normal in size and echotexture. Pelvic fluid: none. US/US pelvic and transvaginal IMPRESSION: Fibroid uterus as described. Electronically signed by: Perfecto Choudhary MD 10/31/2024 02:35 PM EDT
--- OUTSIDE RECORDS SUMMARY | 2024-10-31 16:22 | XMS_ITS | Encounter Summary ---
Author Organization [employer] Address [address] [place] [address] Care Team Providers Care Prosthodontist/Owner Name Role Phone Alexander La MD Primary Care Prov ider Reason for Visit * Reason Onset Date Comments Results 11/29/2023 Encounter Details Date Type Department Care Team ([facility] st Contact Info) Description 11/29/2023 Telephone [facility] MED[facility] [address] [place] [address] Alexander La MD [address] [place] [address] Results Social History Tobacco Use Types Packs/Day [...] with others, in a hotel, in a fci, living outside on the street, on a [...] Care Team (Late st Contact Info) Description 02/03/2025 11:15 AM EDT Telemedicine [facility] MED & PEDS [address] [place] [address] Alexander La MD [address] [place] [address] 02/21/2025 2:00 PM EDT Office Visit [facility] ADULT DENTAL [address] [place] [address] Loy Melchor documented as of this encounter Visit Diagnoses Not on filedocumented in this encounter Care Teams Prosthodontist/Owner Relationship Specialty Start Date End Date Alexander La MD [address] [place] [address] PCP - General Internal Medicine 09/24/19 Jani Coreas Cloud Systems AdministratorGrounds Maintenance Supervisor 01/25/23 Doug Posada Jr Cloud Systems AdministratorGrounds Maintenance Supervisor 05/13/24 documented as of this encounter
== END 2024-10-31 13:34 | disposition home or self-care (01) ==
LOC: HO.US 13:33
PROVIDERS: PCP Internal Medicine; Visit Provider Internal Medicine
DX: R10.2 Pelvic and perineal pain (principal)
CPT/HCPCS: 76830; 76856

== ENCOUNTER → 2024-10-31 13:35 | Outpatient (BNV) | payer MEDICAID, SELFPAY | PROVIDERS: PCP Internal Medicine; Visit Provider Radiology Diagnostic Radiology | DX: D25.9 Leiomyoma of uterus, unspecified (principal) | CPT/HCPCS: 76830; 76856 ==

== ENCOUNTER 2024-11-12 07:34 | Emergency (ER) | payer MEDICAID, SELFPAY ==
--- NOTE | ~2024-11-12 | XR_ITS ---
EXAMINATION: XR LUMBOSACRAL SPINE CLINICAL INFORMATION: low back COMPARISON: April 22, 2021. TECHNIQUE: Three views of the lumbosacral spine. FINDINGS: Rudimentary ribs at T12. Prominent right transverse process of L5 articulating with S1 Grade 1 anterolisthesis L4-5. Facet joint hypertrophy L4-5 and L5-S1.. XR/XR lumbar spine 2-3V IMPRESSION: Grade 1 anterolisthesis L4-5. Posterior Bertolotti syndrome, right side. Electronically signed by: Chris Davison MD 11/12/2024 08:42 AM EDT
[2024-11-12 07:40] VITALS: BP 142/98; PULSE 82; O2SAT 98
[2024-11-12 07:41] VITALS: BP 149/93; PULSE 74; RESP 18; TEMP 36.6; O2SAT 97; BMI 34.8
--- NOTE | 2024-11-12 07:45 | ED.BACK ---
HPI - Back Pain/Injury General Chief Complaint: Back Pain/Injury Stated Complaint: LOW BACK PAIN X2 DAYS PER EMS Time Seen by Provider: 11/12/24 10:11 Source: patient, RN notes reviewed and old records reviewed Mode of arrival: ambulatory Limitations: no limitations History of Present Illness ED Provider: Octavia HPI Narrative: 54-year-old female with a past medical history significant for hypothyroidism, hepatitis-C, GERD, chronic back pain, diverticulitis presents for evaluation of right-sided back pain. Patient reports her symptoms started 2-3 days ago. Her pain is in the right lower back just above her buttocks. The pain does radiate into her right leg Denies any recent falls, heavy lifting. Denies any fevers or chills Denies any abdominal pain nausea vomiting. She denies any burning with urination or urinary frequency No other complaints or concerns at this time Related Data Home Medications ?Medication ?Instructions ?Recorded ?Confirmed clonazepam 0.5 mg tablet 0.5 mg PO TID 05/04/20 01/22/21 levothyroxine 125 mcg capsule 125 mcg PO DAILY 05/04/20 01/22/21 loratadine 10 mg tablet (Claritin) 10 mg PO DAILY 05/04/20 01/22/21 methocarbamol 750 mg tablet 750 mg PO Q8H 05/04/20 01/22/21 (Robaxin-750) zolpidem 5 mg tablet (Ambien) 5 mg PO BEDTIME PRN Insomnia 05/04/20 01/22/21 omeprazole 20 mg capsule,delayed 10 mg PO DAILY 10/27/20 01/22/21 release Previous Rx's ?Medication ?Instructions ?Recorded bisacodyl 5 mg tablet,delayed 10 mg (2 x 5 mg) PO ONCE 1 day #2 05/04/20 release (Dulcolax (bisacodyl)) tabs polyethylene glycol 3350 17 238 g PO ONCE 1 day #238 grams 07/01/20 gram/dose oral powder (Miralax) tizanidine 2 mg tablet 4 mg (2 x 2 mg) PO .qhs PRN muscle 09/02/20 spasticity #60 tabs sennosides 8.6 mg tablet (Natural 17.2 mg (2 x 8.6 mg) PO BEDTIME 10/27/20 Senna Laxative) PRN constipation #30 tabs psyllium husk 0.52 gram capsule 0.52 g PO DAILY #30 caps 12/01/20 (Metamucil) celecoxib 200 mg capsule 200 mg PO BID for pain 30 days #60 02/25/21 caps nitrofurantoin 100 mg PO BID #14 caps 10/10/24 monohydrate/macrocrystals 100 mg capsule (Macrobid) phenazopyridine 100 mg tablet 100 mg PO TID PRN pain 6 doses #9 10/10/24 (Pyridium) tabs cyclobenzaprine 10 mg tablet 10 mg PO TID PRN muscle spasm #20 11/12/24 tabs naproxen 500 mg tablet 500 mg PO BID PRN pain #20 tabs 11/12/24 Allergies Allergy/AdvReac Type Severity Reaction Status Date / Time No Known Allergies (No Known Allergy Verified 11/12/24 07:43 Allergies*) Review of Systems Constitutional: Constitutional: Denies body ache(s), Denies chills and Denies fever(s) Eyes: Eyes: Denies blurry vision ENT: Denies vertigo and Denies dizziness Cardiovascular: Cardiovascular: Denies chest pain and Denies dyspnea on exertion Respiratory: Respiratory: Denies cough and Denies dyspnea on exertion Gastrointestinal: Gastrointestinal: Denies abdominal pain, Denies nausea and Denies vomiting Genitourinary: Genitourinary: Denies dysuria Musculoskeletal: Musculoskeletal: Reports back pain and Reports radiating pain into limb Integumentary/Breasts: Skin/Breast: Denies rash Neurologic: Denies vertigo and Denies dizziness Psychiatric: Psychiatric: Denies anxiety [facility] Past Medical History Medical History Microscopic hematuria Hypothyroid Hepatitis C GERD (gastroesophageal reflux disease) Diverticulitis Rectal bleeding Constipation Nicotine dependence, cigarettes, uncomplicated Chronic back pain Knee pain, left Numbness and tingling of right arm Fall down stairs Surgical History History of radiofrequency ablation (RFA) of nerve of lumbar spine History of cholecystectomy History of bowel resection History of exploratory laparotomy Family History Family History Father No problems noted. Mother COPD (chronic obstructive pulmonary disease) High blood pressure Diabetes HIV (human immunodeficiency virus infection) Asthma Depression Lung cancer Maternal Grandmother Bone cancer Maternal Uncle AD (Alzheimer's disease) Lung cancer Maternal Aunt Skin cancer Social History Social History Household Members: Children Alcohol intake: never Patient Tobacco Use Status: Current everyday Tobacco user Tobacco use type: Cigarette Cigarettes Per Day: 3 Years Smoked: (onset 20to, 1/2-1ppd x 32yrs, now 3cig/day - 20pyh) Substance Use Type: Marijuana Advance Directives: No Advance Directives Information Provided: Yes Do you have a plan to hurt others: No Plan Physical Exam Vital Signs: Vital Signs: Last Vital Signs Temp 97.3 F 11/12/24 10:25 Pulse 66 11/12/24 10:25 Resp 14 11/12/24 10:25 BP 128/84 11/12/24 10:25 Pulse Ox 97 11/12/24 10:25 O2 Del Method Room Air 11/12/24 10:25 BMI result Body Mass Index 34.8 Const: General: healthy appearing, comfortable, no acute distress, alert and awake Nutritional Appearance: well nourished Orientation/consciousness: patient oriented x3 HEENT: Head: Yes normocephalic and Yes atraumatic Eyes: Eyelids: Yes eyelids normal Conjunctivae: conjunctivae normal Sclerae: sclerae normal Corneas: corneas normal Pupils: Equal, round and reactive pupils present EOM: EOMs intact bilaterally Neck: Neck: Yes full ROM Resp: Effort & Inspection: normal respiratory effort, able to speak in complete sentences and not labored GI: Inspection: No distended Palpation (GI): Soft to palpation, not firm, nontender, no guarding and not rigid Back/Spine/Pelvis: Other: No thoracic, lumbar spinal tenderness. No step-offs or deformities to the vertebrae. There is right lumbar sacral paraspinous muscle tenderness in the sciatic notch. Straight leg raise negative bilaterally. Skin: General skin exam: elasticity normal Neuro: General: patient oriented x3 Cranial nerves: Yes Equal, round and reactive pupils present and Yes Bilaterally intact EOM present Cognition (Neuro): normal cognition Motor exam (neuro): 5/5 motor strength present throughout Deep tendon reflexes (DTR's): Right patellar reflex intensity grade: 2+ and Left patellar reflex intensity grade: 2+ Course Course Course Narrative: 54 yo female with low back pain, anxiety, hypothyroidism, not on blood thinners here with a couple of days of R sided low back pain no b/b incontinence, no saddle anesthesia, no IVDA, no fevers hurts to move and walk. Hx of same before but this is mostly on the R side usually it is the entire back. Took motrin no relief. No rash reported. UA and xray ordered, has no hx of kidney stones. this is a RAPID medical screening exam the rest of the history and physical exam is to be done by the main provider. MORIS 747am Medications Administered Discontinued Medications Generic Name Dose Route Start Last Admin Trade Name Fredhiraj PRN Reason Stop Dose Admin Tramadol HCl 50 mg 11/12/24 10:29 11/12/24 10:56 Tramadol Hcl 50 Mg Tablet PO 11/12/24 10:30 50 mg ONCE ONE Administration Medical Decision Making Medical Decision Making [facility] Narrative: 54-year-old female presents for evaluation of atraumatic right lower back pain. Symptoms started 2 days ago, denies any associated symptoms including abdominal pain, nausea vomiting or symptoms either. The patient was found to have microscopic hematuria which is not new for her. She reports that she has never had this worked up. I reviewed his CT scan of the abdomen pelvis that she had from 1 month ago that did not show any renal stones, so I feel this is less likely to be obstructive uropathy. There was no evidence of urine infection. The patient's pain is quite reproducible on exam and is very lateral in the right lumbosacral region. This is most likely musculoskeletal in origin, of the lumbar x-ray shows right posterior Bertolotti syndrome which is likely the cause of her pain today. I discussed this with her. We will treat her pain with naproxen and cyclobenzaprine and we will refer her to Urology given her hematuria Differential Diagnosis Differential Diagnoses: The differential diagnosis associated with the presentation includes Acute low back pain Muscle strain Bertolotti syndrome Obstructive uropathy UTI Spondylosis Lab Data [facility] Lab Attestation statement: I reviewed the patient's lab results. Hematuria without evidence of UTI Labs: Lab Results 11/12/24 Range/Units 07:56 Urine Color Yellow Urine Appearance Clear Urine pH 5.5 (5.0-9.0) Ur Specific [place] 1.025 (1.005-1.025) Urine Protein Trace (Neg-Trace) mg/dL Urine Glucose (UA) Negative (Negative) mg/dL Urine Ketones Trace (Negative) mg/dL Urine Blood Large (3+) H (Negative) Urine Nitrite Negative (Negative) Ur Leukocyte Esterase Negative (Negative) Urine RBC >20 H (0-2) /HPF Urine WBC 0-5 (0-5) /HPF Ur Squamous Epith Cells 3-5 (0-2) /HPF Urine Bacteria Trace (None Seen) Hyaline Casts 3-5 (0-2) /LPF Radiology Impression Discussion of test interpretation with radiology: I have reviewed the radiologist's reading. Radiologist Impression: EXAMINATION: XR LUMBOSACRAL SPINE CLINICAL INFORMATION: low back COMPARISON: April 22, 2021. TECHNIQUE: Three views of the lumbosacral spine. FINDINGS: Rudimentary ribs at T12. Prominent right transverse process of L5 articulating with S1 Grade 1 anterolisthesis L4-5. Facet joint hypertrophy L4-5 and L5-S1.. XR/XR lumbar spine 2-3V IMPRESSION: Grade 1 anterolisthesis L4-5. Posterior Bertolotti syndrome, right side. Discharge Plan Discharge Clinical Impression: Low back pain radiating to right leg Patient Disposition: Home, Self-Care Instructions: Acute Low Back Pain (ED) Additional Instructions: Your urinalysis did show blood in the urine which you have had in the past. I do not believe this is causing your pain today However you should follow up with Urology, call today or tomorrow to schedule an appointment Your lower back x-ray shows an abnormal congenital finding called Bertolotti syndrome which is an abnormal connection of your lower back/lumbar spine to your sacrum or pelvis. This is likely contributing to your back pain today Take naproxen as needed for pain Use cyclobenzaprine as needed for muscle spasms This may make you drowsy, do not drink alcohol or drive after taking EXAMINATION: XR LUMBOSACRAL SPINE CLINICAL INFORMATION: low back COMPARISON: April 22, 2021. TECHNIQUE: Three views of the lumbosacral spine. FINDINGS: Rudimentary ribs at T12. Prominent right transverse process of L5 articulating with S1 Grade 1 anterolisthesis L4-5. Facet joint hypertrophy L4-5 and L5-S1.. XR/XR lumbar spine 2-3V IMPRESSION: Grade 1 anterolisthesis L4-5. Posterior Bertolotti syndrome, right side. [facility] will be contacting you within 2 business?days after being discharged from the Emergency?Department.? During this?phone call, they will inform you when your follow up appointment will be scheduled. If you have not received a call from [facility] after 2 business?days, please call the?office at [phone]. Prescriptions: New naproxen 500 mg tablet 500 mg PO BID PRN (Reason: pain) Qty: 20 0RF cyclobenzaprine 10 mg tablet 10 mg PO TID PRN (Reason: muscle spasm) Qty: 20 0RF No Action polyethylene glycol 3350 [Miralax] 17 gram/dose powder 238 g PO ONCE 1 Days Qty: 238 0RF Rx Instructions: Take as directed by mouth, bowel prep celecoxib 200 mg capsule 200 mg PO BID 30 Days Qty: 60 11RF phenazopyridine [Pyridium] 100 mg tablet 100 mg PO TID PRN (Reason: pain) Qty: 9 0RF nitrofurantoin monohyd/m-cryst [Macrobid] 100 mg capsule 100 mg PO BID Qty: 14 0RF Rx Instructions: must administer with a meal/food zolpidem [Ambien] 5 mg tablet 5 mg PO BEDTIME PRN (Reason: Insomnia) clonazepam 0.5 mg tablet 0.5 mg PO TID levothyroxine 125 mcg capsule 125 mcg PO DAILY methocarbamol [Robaxin-750] 750 mg tablet 750 mg PO Q8H loratadine [Claritin] 10 mg tablet 10 mg PO DAILY bisacodyl [Dulcolax (bisacodyl)] 5 mg tablet,delayed release (DR/EC) 10 mg PO ONCE 1 Days Qty: 2 0RF Rx Instructions: take 2 tabs at noon the day before your colonoscopy omeprazole 20 mg capsule,delayed release(DR/EC) 10 mg PO DAILY tizanidine 2 mg tablet 4 mg PO .qhs PRN (Reason: muscle spasticity) Qty: 60 0RF psyllium husk [Metamucil] 0.52 gram capsule 0.52 g PO DAILY Qty: 30 4RF sennosides [Natural Senna Laxative] 8.6 mg tablet 17.2 mg PO BEDTIME PRN (Reason: constipation) Qty: 30 1RF Referrals: [facility] [Provider Group, Urology] Referral Note: hematuria, no previous urology workup Interventions: ED Discharge Assessment Last Done: 11/12/24 11:00 Print Language: Latvian
[2024-11-12 08:11] LABS: Appearance Urine Clear; Glucose Urine UA Negative (Negative); PH 5.5 (5.0-9.0); Specific Gravity - Urine 1.025 (1.005-1.025); UMIC TRIGGER UACC YES
[2024-11-12 10:25] VITALS: BP 128/84; PULSE 66; RESP 14; TEMP 36.3; O2SAT 97
[2024-11-12 11:00] VITALS: BP 128/84; PULSE 66; RESP 14; TEMP 36.3; O2SAT 97
--- OUTSIDE RECORDS SUMMARY | 2024-11-12 11:14 | XMS_ITS | Clinical Summary ---
Author Organization [facility] it Address [address] [place] [address] Care Team Providers Care Jailer Chief Name Role Phone Amira Tillman MD Primary Care Provider [phone] Social History Tobacco Use Types Packs/Day Years Used Date Smoking Tobacco: Never Assessed Comments Unknown Sex and Gender Information Value Date Recorded Sex Assigned at Not on file Legal Sex Female 2:13 PM EST Gender Identity Not on file Sexual Orientation Not on file Plan of Treatment Health Maintenance Due Date Last Done Comments Breast Cancer Screening 1970 DTaP,Tdap,and Td Vaccines (1 - Tdap) 1989 Hepatitis B Vaccines (1 of 3 - 19+ 3-dose series) 1989 Cervical Cancer Screening: P ap Smear 1991 Pneumococcal Vaccine: 50+ Ye ars (1 of 1 - PCV) 2020 Zoster Vaccines (1 of 2) 2020 Colorectal Cancer Screening: Colonoscopy 04/06/2022 Depression Screening 04/06/2022 HIV Screening 04/06/2022 Hepatitis C Screening 04/06/2022 Social Influencers of Health Screening 04/06/2022 COVID-19 Vaccine (1 - 2023-2 5 season) 2024 Influenza Vaccine (#1) 2025 HIB Vaccines Aged Out No longer eligi ble based on patient's age to complete this topic HPV Vaccines Aged Out No longer eligi ble based on patient's age to complete this topic Hepatitis A Vaccines Aged Out No long er eligible based on patient's age to complete this topic IPV Vaccines Aged Out No longer eligi ble based on patient's age to complete this topic MMR Vaccines Aged Out No longer eligi ble based on patient's age to complete this topic Meningococcal ACWY Vaccine Aged Out N o longer eligible based on patient's age to complete this topic Meningococcal B Vaccine Aged Out No l onger eligible based on patient's age to complete this topic RSV Immunization Patients Un frandy 20 months Aged Out No longer eligible b ased on patient's age to complete this topic Varicella Vaccines Aged Out No longer eligible based on patient's age to complete this topic Care Teams Jailer Chief Relationship Specialty Start Date End Date Amira Tillman MD [address] [place] [id number] PCP - General 01/31/13
--- OUTSIDE RECORDS SUMMARY | 2024-11-12 11:14 | XMS_ITS | Encounter Summary ---
Author Organization [employer] Address [address] [place] [address] Care Team Providers Care Esl Professor Name Role Phone Alexander La MD Primary Care Prov ider Reason for Visit * Reason Onset Date Comments Results 11/29/2023 Encounter Details Date Type Department Care Team ([facility] st Contact Info) Description 11/29/2023 Telephone [facility] MEDICINE [address] [place] [address] Alexander La MD [address] [place] [address] Results Social History Tobacco Use Types Packs/Day [...] Info) Description 02/03/2025 11:15 AM EDT Telemedicine [facility] MED & PEDS [address] [place] [address] Alexander La MD [address] [place] [address] 02/21/2025 2:00 PM EDT Office Visit [facility] ADULT DENTAL [address] [place] [address] Loy Melchor documented as of this encounter Visit Diagnoses Not on filedocumented in this encounter Care Teams Esl Professor Relationship Specialty Start Date End Date Alexander La MD [address] [place] [address] PCP - General Internal Medicine 09/24/19 Jani Coreas Hollow Handle Knife AssemblerEnrollment Eligibility Representative 01/25/23 Doug Posada Jr Hollow Handle Knife AssemblerEnrollment Eligibility Representative 05/13/24 documented as of this encounter
== END 2024-11-12 11:01 | disposition home or self-care (01) ==
PROVIDERS: Emergency Medicine; Emergency Provider Emergency Medicine Emergency Medical Services; PCP Internal Medicine
DX: M54.50 Low back pain, unspecified (principal); M79.604 Pain in right leg; Q76.49 Other congenital malformations of spine, not associated with scoliosis; R31.9 Hematuria, unspecified
CPT/HCPCS: 72100; 81001; 99283

== ENCOUNTER → 2024-11-12 07:44 | Outpatient (BNV) | payer MEDICAID, SELFPAY | PROVIDERS: PCP Internal Medicine; Visit Provider Radiology Diagnostic Radiology | DX: M43.16 Spondylolisthesis, lumbar region (principal) | CPT/HCPCS: 72100 ==

== ENCOUNTER 2025-01-23 11:38 | Outpatient (AMB) | payer MEDICAID, SELFPAY ==
--- NOTE | 2025-01-23 11:48 | MHC.OFFVIS ---
Intake Visit Reasons: hematuria Intake Note: Patient is present for HEMATURIA Urology Medication:PYRIDIUM Antibiotic Allergy:NONE Blood Thinner:NONE TODAY'S PVR:45ml's Greens Or Grounds Superintendent Required: No Allergies No Known Allergies (No Known Allergies*) Allergy (Verified 01/23/25 12:22) Medication List - Last Reconciled 01/23/25 by BRITNEY Donovan- bisacodyl (Dulcolax (bisacodyl)) 10 mg (2 x 5 mg) PO ONCE 1 day clonazepam 0.5 mg PO TID levothyroxine 125 mcg PO DAILY loratadine (Claritin) 10 mg PO DAILY naproxen 500 mg PO BID PRN omeprazole 10 mg PO DAILY psyllium husk (Metamucil) 0.52 grams PO DAILY sennosides (Natural Senna Laxative) 17.2 mg (2 x 8.6 mg) PO BEDTIME PRN solifenacin (Vesicare) 5 mg PO DAILY 30 days zolpidem (Ambien) 5 mg PO BEDTIME PRN HPI Comments Details: Maggie is a very pleasant 54-year-old female patient of Dr.?Betancourt Murray. She has a past medical history of hypothyroidism, hep C, GERD, diverticulitis, constipation, nicotine dependence, and chronic back pain. In discussion with the patient today she reports noting over the last year she has been having ongoing issues with lower abdominal discomfort as well as bladder pressure. In review of patient's chart it does appear CT of the abdomen and pelvis with IV contrast was ordered and performed 10/30 these results were reviewed and communicated with the patient today. No renal calculi are identified. There is no hydronephrosis. There is a 1.1 cm cyst at the anterior aspect of the right kidney. The urinary bladder is collapsed, limiting evaluation. The uterus and ovaries are unremarkable. Per radiology report. In office urinalysis results reviewed with the patient today 3+ microscopic hematuria. When asked she does report a 15-20 year smoking history. She reports she is currently only smoking 3 cigarettes per day as she is trying to quit however had been smoking at least 1 pack of cigarettes per day. She denies incontinence, nocturia, gross/visible hematuria, dysuria, foul smelling urine, changes to urinary stream, flank pain, fever, and or chills. We did discussed at length potential causes of bladder pressure as well as microscopic hematuria. I discussed reasons for blood in the urine may include but are not limited to kidney stones, cancer in the urinary tract, kidney stone disease or inflammatory conditions of the urinary tract. I have discussed workup to include cystoscopy evaluation. All questions were answered. She otherwise offers no other issues or concerns at this time. [facility] Medical History Microscopic hematuria Hypothyroid Hepatitis C GERD (gastroesophageal reflux disease) Diverticulitis Rectal bleeding Constipation Nicotine dependence, cigarettes, uncomplicated Chronic back pain Knee pain, left Numbness and tingling of right arm Fall down stairs Surgical History History of radiofrequency ablation (RFA) of nerve of lumbar spine History of cholecystectomy History of bowel resection History of exploratory laparotomy Family History Father No problems noted. Mother COPD (chronic obstructive pulmonary disease) High blood pressure Diabetes HIV (human immunodeficiency virus infection) Asthma Depression Lung cancer Maternal Grandmother Bone cancer Maternal Uncle AD (Alzheimer's disease) Lung cancer Maternal Aunt Skin cancer Social History Household Members: Children Alcohol intake: never Patient Tobacco Use Status: Current everyday Tobacco user Tobacco use type: Cigarette Cigarettes Per Day: 3 Years Smoked: (onset 20to, 1/2-1ppd x 32yrs, now 3cig/day - 20pyh) Substance Use Type: Marijuana Review of Systems Const All systems reviewed & are unremarkable except as noted in HPI and below Physical Exam Const General: cooperative, healthy appearing, comfortable, no acute distress, well developed, alert and awake Orientation/consciousness: patient oriented x3 Limitations: no limitations HEENT Head: Yes normal to inspection, Yes normocephalic and Yes atraumatic Ears: hearing grossly normal bilaterally Eyes General: appearance normal, both eyes and all related structures Neck Neck: Yes normal visual inspection and Yes trachea midline Chest Chest palpation & inspection: normal inspection of the chest Resp Effort & Inspection: normal respiratory effort and able to speak in complete sentences Cardio Rate: regular rate GI Inspection: Yes normal to inspection General: Yes no CVA tenderness Back/Spine/Pelvis Back: no CVA tenderness Skin General skin exam: no rashes or lesions noted Neuro General: patient oriented x3 Extrem General: Yes normal to inspection Psych Appearance: grossly normal and well kempt Mental Status: mental status grossly normal Speech and movement: Normal speech and movement present and Clear speech present Affect: normal affect Attitude: cooperative Thought process: Normal thought process present Thought content: Normal thought content present Insight: Fair insight present (Psych) Judgement: Fair judgement present (Psych) Office Procedures Post Void Residual Post Residual Void Post Void Residual (PVR): 45 [id number] Void Residual by ultrasound Results Reviewed Results Reviewed: Date of Service: 10/10/24 Procedure(s): CT abdomen pelvis w IV con FINDINGS: LOWER CHEST: The visualized lung bases are clear. There is no pleural effusion. CARDIOVASCULATURE: The heart is normal in size. There is no pericardial effusion. LIVER: The liver demonstrates a somewhat nodular contour, suggestive of cirrhosis. No liver mass is identified. The hepatic and portal veins are patent. GALLBLADDER / BILE DUCTS: The gallbladder is surgically absent. Prominence of the common bile duct is unchanged and is likely on the basis of prior cholecystectomy. SPLEEN: The spleen is normal in size. No focal splenic lesion is identified. PANCREAS: The pancreas is unremarkable in appearance. ADRENAL GLANDS: Within normal limits. KIDNEYS/RETROPERITONEUM: No renal calculi are identified. There is no hydronephrosis. There is a 1.1 cm cyst at the anterior aspect of the right kidney. LYMPH NODES: No abdominal or pelvic lymphadenopathy. VASCULATURE: The abdominal aorta is normal in caliber. MESENTERY/PERITONEUM: No free fluid. No masses. There is no free intraperitoneal gas. STOMACH: The stomach is collapsed, limiting evaluation. SMALL BOWEL: The small bowel is normal in caliber. COLON: The patient is again noted status post partial colectomy. A sigmoid anastomosis is unchanged in appearance. APPENDIX: Normal. URINARY BLADDER/PELVIC ORGANS: The urinary bladder is collapsed, limiting evaluation. The uterus and ovaries are unremarkable. BONES / SOFT TISSUES: There is grade I spondylolisthesis of L4 on L5. IMPRESSION: Nodular liver contour, suggestive of cirrhosis. Additional incidental findings as discussed above. Assessment & Plan Assessment & Plan (1) Microscopic hematuria: Comment: (blood on UA on 05/27/2019 - smoking is greatest risk factor for bladder cancer, hematuria in postmenopausal woman should be worked up to rule out ovarian cancer - further OFFSET PRESS ASSISTANT and work up recommended) Code(s): R31.29 - Other microscopic hematuria Category: Medical (2) Sensation of pressure in bladder area: Code(s): R39.89 - Other symptoms and signs involving the genitourinary system Category: Medical (3) Nicotine dependence, cigarettes, uncomplicated: Comment: (Smoker - onset 20yo, 1/2-1ppd x 32yrs, now 3cig/day - 20pyh) Code(s): F17.210 - Nicotine dependence, cigarettes, uncomplicated Category: Medical Plan In office urinalysis results reviewed with the patient today; as noted above; will send for urine cytology. PVR [address] results reviewed with the patient today; as noted above. Educated on the importance of limiting/quitting nicotine dependence for overall health and well-being. All questions were answered. We discussed the importance of adequate hydration relation to lower urinary tract symptoms as well as overall health and well-being. Start VESIcare as discussed and prescribed. We discussed potential causes of microscopic hematuria as well as bladder pressure. We discussed bladder triggers and irritants. Follow-up next available in office cystoscopy; or sooner with any issues, concerns, and or questions. Orders: Orders AMB Urinalysis Automated Today Z13.9 - Encounter for screening, unspecified Urine Cytology Today R31.29 - Other microscopic hematuria Medications: New solifenacin (Vesicare) 5 mg PO DAILY 30 tabs 3RF 30 days Patient Instructions: The patient had an opportunity to ask questions regarding the treatment plan. All questions were answered. Physical exam, labs, and imaging were discussed and reviewed in detail. As well as risks, benefits, and discussion of treatment choices. No major barriers to understanding were identified. The patient expressed understanding and agreement with the above treatment plan. The patient was made aware they should contact our office by phone for worsening of their current condition, the appearance of new symptoms, or with any questions or concerns. Compliance is encouraged with any medications and follow up testing that is ordered. It is a privilege to be allowed the opportunity to participate in? your urological care.? Again, if you have any questions or concerns If you have any questions or concerns please do not hesitate to contact me. The office is [phone]. This note is constructed using voice recognition software. While every effort has been made to ensure accuracy epic cadence specialists errors may have been included. Yours sincerely, BRITNEY Donovan-LYLE Coding Level of Care Code New Pt Level 4 (97244) Diagnoses Microscopic hematuria R31.29 Sensation of pressure in bladder area R39.89 Nicotine dependence, cigarettes, uncomplicated F17.210 CPT Codes Post Residual Void - PVR CPT Code: 48981-[place] Void Residual by ultrasound ([id number])
--- OUTSIDE RECORDS SUMMARY | 2025-01-23 14:03 | XMS_ITS | Encounter Summary ---
Author Organization [employer] Address [address] [facility] [address] [place] [address] Care Team Providers Care Fur Vault Attendant Name Role Phone Alexander La MD Primary Care Prov ider Reason for Visit * Reason Onset Date Comments PT-1 10/17/2023 Encounter Details Date Type Department Care Team (Late st Contact Info) Description 10/17/[address] [facility] MEDICINE [address] [place] [address] Alexander La MD [address] [place], [place] [id number] PT-1 Social History Tobacco Use Types Packs/Day Years Used Date Smoking Tobacco: Every Day Cigarettes 0.5 30 Smokeless Tobacco: Never Alcohol Use Standard Drinks/Week Comments Never 0 (1 standard drink = 0.6 oz pur e alcohol) Housing Stability Answer Date Recorded What is your housing situation today? I do not have housing (Staying with others, in a hotel, in a snf, living outside on the street, on a [...] encounter Miscellaneous Notes * Telephone Encounter - Juan M Lester - 10/17/2023 1:22 PM EDT Tc from patient calling to inform that the PT-1 that was requested on 10/10 requires a address verification as was told by documented in this encounter Plan of Treatment Upcoming Encounters Date Type Department Care Team (Late st Contact Info) Description 01/30/2025 9:00 AM EDT Office Visit [facility] ADULT [facility]AL [address] [place] [address] Oc Rubi DDS [address] [place] [address] 02/03/2025 11:15 AM EDT Telemedicine [facility] MED & PEDS [address] [place] [address] Alexander La MD [address] [place] [address] 02/21/2025 2:15 PM EDT Office Visit [facility] AD[facility] [address] [place] [address] Loy Melchor documented as of this encounter Visit Diagnoses Not on filedocumented in this encounter Care Teams Fur Vault Attendant Relationship Specialty Start Date End Date Alexander La MD [address] [place] [address] PCP - General Internal Medicine 09/24/19 Jani Coreas Drainage Design CoordinatorSocial Services 01/25/23 Doug Posada Jr Drainage Design CoordinatorSocial Services 05/13/24 documented as of this encounter
--- OUTSIDE RECORDS SUMMARY | 2025-01-23 14:03 | XMS_ITS | Clinical Summary ---
Author Organization [facility] it Address [address] [place] [address] Care Team Providers Care Hotel Lobby Concierge Name Role Phone Amira Tillman MD Primary Care Provider Social History Tobacco Use Types Packs/Day Years [...] 2) 2020 Colorectal Cancer Screening: Colonoscopy 04/06/2022 HIV Screening 04/06/2022 Hepatitis C Screening 04/06/2022 Social Influencers of Health Screening 04/06/2022 Depression Screening 05/08/2024 COVID-19 Vaccine (1 - 2023-2 5 season) 2025 Influenza Vaccine (#1) 2025 HIB Vaccines Aged [...] age to complete this topic Care Teams Hotel Lobby Concierge Relationship Specialty Start Date End Date Amira Tillman MD [address] [place] [phone] PCP - General 01/31/13
--- OUTSIDE RECORDS SUMMARY | 2025-01-23 14:03 | XMS_ITS | Encounter Summary ---
Author Organization [employer] Address [address] [facility] 7[address] [place] [address] Care Team Providers Care Statement Clerk Name Role Phone Alexander La MD Primary Care Prov ider Reason for Visit * Reason Onset Date Comments Results 11/29/2023 Encounter Details Date Type Department Care Team ([facility] st Contact Info) Description 11/29/2023 Telephone [facility] MEDICINE [address] [place] [address] Alexander La MD [address] [place] [address] Results Social History Tobacco Use Types Packs/Day [...] with others, in a hotel, in a [place] [facility] [place], living outside on the street, on a [...] Description 01/30/2025 9:00 AM EDT Office Visit [facility] ADULT DENTAL [address] [place] [address] Oc Rubi DDS [address] [place] [address] 02/03/2025 11:15 AM EDT Telemedicine [facility] MED & PEDS [address] [place] [address] Alexander La MD [address] [place] [address] 02/21/2025 2:15 PM EDT Office Visit [facility] ADULT DENTAL [address] [place] [address] Loy Melchor documented as of this encounter Visit Diagnoses Not on filedocumented in this encounter Care Teams Statement Clerk Relationship Specialty Start Date End Date Alexander La MD [address] [place] [address] PCP - General Internal Medicine 09/24/19 Jani Coreas Shirt HemmerBundle Cutter 01/25/23 Doug Posada Jr Shirt HemmerBundle Cutter 05/13/24 documented as of this encounter
--- OUTSIDE RECORDS SUMMARY | 2025-01-23 14:03 | XMS_ITS | Encounter Summary ---
Author Organization [employer] Address [address] [facility] 7[address] [place] [address] Care Team Providers Care Fiberglass Roller Name Role Phone Alexander La MD Primary Care Prov ider Reason for Visit * Reason Onset Date Comments Nurse Triage 07/21/2023 Hep C 07/21/2023 Encounter Details Date Type Department Care Team (Late st Contact Info) Description 07/21/2023 Telephone [facility] MEDICINE [address] [place] [address] Alexander La MD [address] [place] [address] Nurse Triage; Hep C Social History Tobacco Use Types Packs/Day Years Used Date Smoking Tobacco: Every Day Cigarettes 0.5 30 Smokeless Tobacco: Never Alcohol Use Standard Drinks/Week Comments Never 0 (1 standard drink = 0.6 oz pur e alcohol) Housing Stability Answer Date Recorded What is your housing situation today? I do not have housing (Staying with others, in a hotel, in a alf, living outside on the street, on a [...] encounter Miscellaneous Notes * Telephone Encounter - Airam Stephen RN - 07/21/2023 10:06 AM EDT called pt to triage, spoke to pt. pt states has chronic sciatica and it is getting worse for the last few days. pt reports low back pain that radiates down both legs with tingling in bilateral toes. pt states pain with ROM and difficulty with daily activities. pt denies known recent injury, fevers, inability to stand or walk, or other associated symptoms. offered TC appt with PCP, declined. givenappt with [facility] provider 07/26 at 10:30 for exam. no available in person appt with PCP. advised home care: rest, ice, heat, OTC as needed, and call back if worsening or new concerns. pt states may need transportation assistance, and advised to call back next week if needs an uber. will task to [facility] team for this. pt understands and agrees with plan. insurance verified. Protocol Used: Back Pain (Adult) Protocol-Based Disposition: See in Office or Video Visit within 2 Weeks Video visit offer not recorded Positive Triage Question: * Back pain is a chronic symptom (recurrent or ongoing AND lasting > 4 weeks) * All higher-acuity triage questions were negative Care Advice Discussed: * Reassurance and Education - Back Pain * Cold or Heat * Sleep * Activity * Pain Medicines * Reasons To Call Back - Fever occurs - Numbness or weakness occurs, or bowel/bladder problems - Pain begins to shoot into the leg - Pain persists over 2 weeks - Pain becomes worse - You become worse * Telephone Encounter - Juan M Lester - 07/21/2023 9:11 AM EDT Symptoms: Knee Pain - Not From Injury, Back Pain - Not From Injury Outcome: Schedule an urgent appointment (within 1 hour) or talk to a nurse or provider soon Reason: Trouble walking The caller accepted this outcome documented in this encounter Plan of Treatment Upcoming Encounters Date Type Department Care Team (Late st Contact Info) Description 01/30/2025 9:00 AM EDT Office Visit [facility] ADULT DENTAL [address] [place] [address] Oc Rubi DDS [address] [place] [address] 02/03/2025 11:15 AM EDT Telemedicine [facility] MED & PEDS [address] [place] [address] Alexander La MD [address] [place] [address] 02/21/2025 2:15 PM EDT Office Visit [facility] ADULT DENTAL [address] [place] [address] Loy Melchor documented as of this encounter Visit Diagnoses Not on filedocumented in this encounter Care Teams Fiberglass Roller Relationship Specialty Start Date End Date Alexander La MD [address] [place] [address] PCP - General Internal Medicine 09/24/19 Jani Coreas Spray Unit FeederBody Make Up Artist 01/25/23 Doug Posada Jr Spray Unit FeederBody Make Up Artist 05/13/24 documented as of this encounter
--- OUTSIDE RECORDS SUMMARY | 2025-01-23 14:03 | XMS_ITS | Encounter Summary ---
Author Organization [employer] Address [address] [facility] [address] [place] [address] Care Team Providers Care Investigation Clerk Name Role Phone Alexander La MD Primary Care Prov ider Reason for Visit * Reason Comments Med Refill Encounter Details Date Type Department Care Team ([facility] st Contact Info) Description 04/13/2024 Refill [facility] MED & PEDS [address] [place] [address] Alexander La MD [address] [place] [address] Social History Tobacco Use Types Packs/Day Years Used Date Smoking Tobacco: Every Day Cigarettes 0.5 30 Passive Smoke Exposure: Current Smokeless Tobacco: Never Alcohol Use Standard Drinks/Week Comments Never 0 (1 standard drink = 0.6 oz pur e alcohol) Housing Stability Answer Date Recorded What is your housing situation today? I do not have housing (Staying with others, in a hotel, in a intermediate, living outside on the street, on a [...] AM EDT documented as of this encounter Plan of Treatment Upcoming Encounters Date Type Department Care Team (Late st Contact Info) Description 01/30/2025 9:00 AM EDT Office Visit [facility] ADULT DENTAL [address] [place] [address] Oc Rubi DDS [address] [place] [address] 02/03/2025 11:15 AM EDT Telemedicine [facility] MED & PEDS [address] [place] [address] Alexander La MD [address] [place] [address] 02/21/2025 2:15 PM EDT Office Visit [facility] ADULT DENTAL [address] [place] [address] Loy Melchor documented as of this encounter Visit Diagnoses Not on filedocumented in this encounter Care Teams Investigation Clerk Relationship Specialty Start Date End Date Alexander La MD [address] [place] [address] PCP - General Internal Medicine 09/24/19 Jani Coreas Comber FixerCalender Let Off Operator 01/25/23 Doug Posada Jr Comber FixerCalender Let Off Operator 05/13/24 documented as of this encounter
--- OUTSIDE RECORDS SUMMARY | 2025-01-23 14:03 | XMS_ITS | Encounter Summary ---
Author Organization [employer] Address [address] [facility] 7[address] [place] [address] Care Team Providers Care Fiber Optics Supervisor Name Role Phone Alexander La MD Primary Care Prov ider Reason for Visit * Reason Onset Date Comments PT1 04/25/2023 Encounter Details Date Type Department Care Team ([facility] st Contact Info) Description 04/25/2023 Telephone [facility] MEDICINE [address] [place] [address] Alexander La MD [address] [place] [address] PT1 Social History Tobacco Use Types Packs/Day Years Used Date Smoking Tobacco: Every Day Cigarettes 0.5 30 Smokeless Tobacco: Never Alcohol Use Standard Drinks/Week Comments Never 0 (1 standard drink = 0.6 oz pur e alcohol) Housing Stability Answer Date Recorded What is your housing situation today? I do not have housing (Staying with others, in a hotel, in a fpc, living outside on the street, on a [...] encounter Miscellaneous Notes * Telephone Encounter - Lou Britt - 07/07/2023 10:22 AM EST Address already updated on patient PT-1 * Telephone Encounter - Faby Henderson - 07/07/2023 9:05 AM EST Tc from pt requesting to update new address to PT-1 on file, states contacted insurance and was advised to contact PCP office. [employer] Teacher updated pt address in chart - [address] [place] [address] * Telephone Encounter - Lou Britt - 04/26/2023 9:57 AM EST PT-1 submitted for patient. They will receive a letter of approval or denial in the mail. * Telephone Encounter - Corina Alan - 04/25/2023 10:27 AM EST PT1 needed Date: 05/03/2023 Time: 1:00 Visits: Weekly Address: [address] [place] [address] Facility: [facility] Wheel Chair: Cane Student Life Advisor Needed: no documented in this encounter Plan of Treatment Upcoming Encounters Date Type Department Care Team (Late st Contact Info) Description 01/30/2025 9:00 AM EDT Office Visit [facility] ADULT DENTAL [address] [place] [address] Oc Rubi DDS [address] [facility] [place] [address] 02/03/2025 11:15 AM EDT Telemedicine [facility] MED & PEDS [address] [place] [address] Alexander La MD [address] [place] [address] 02/21/2025 2:15 PM EDT Office Visit [facility] ADULT DENTAL [address] [place] [address] Loy Melchor documented as of this encounter Visit Diagnoses Not on filedocumented in this encounter Care Teams Fiber Optics Supervisor Relationship Specialty Start Date End Date Alexander La MD [address] [place] [address] PCP - General Internal Medicine 09/24/19 Jani Coreas Chronic Disease EpidemiologistOverhead Cleaner Maintainer 01/25/23 Doug Posada Jr Chronic Disease EpidemiologistOverhead Cleaner Maintainer 05/13/24 documented as of this encounter
--- OUTSIDE RECORDS SUMMARY | 2025-01-23 14:03 | XMS_ITS | Encounter Summary ---
Author Organization [employer] Address [address] [facility] [address] [place] [address] Care Team Providers Care Vice President Process Name Role Phone Alexander La MD Primary Care Prov ider Reason for Visit * Reason Comments Med Change Request Encounter Details Date Type Department Care Team ([facility] st Contact Info) Description 03/06/2024 Refill [facility]ULT [facility]AL [address] [place] [address] Aminata Rosas DMD Social History Tobacco Use Types Packs/Day Years [...] 01/30/2025 9:00 AM EDT Office Visit [facility] ADULT DENTAL [address] [place] [address] Oc Rubi DDS [address] [place] [address] 02/03/2025 11:15 AM EDT Telemedicine [facility] MED & PEDS [address] [place] [address] Alexander La MD [address] [place] [address] 02/21/2025 2:15 PM EDT Office Visit [facility] ADULT [facility] [address] [place] [address] Loy Melchor documented as of this encounter Visit Diagnoses Not on filedocumented in this encounter Care Teams Vice President Process Relationship Specialty Start Date End Date Alexander La MD [address] [place] [address] PCP - General Internal Medicine 09/24/19 Jani Coreas [employer] Certified Network AssociateBody Piercer 01/25/23 Doug Posada Jr [employer] Certified Network AssociateBody Piercer 05/13/24 documented as of this encounter
--- OUTSIDE RECORDS SUMMARY | 2025-01-23 14:03 | XMS_ITS | Encounter Summary ---
Author Organization [employer] Address [address] [facility] [address] [place] [address] Care Team Providers Care Wafer Polisher Name Role Phone Alexander La MD Primary Care Prov ider Reason for Visit * Reason Comments Med Refill Encounter Details Date Type Department Care Team ([facility] st Contact Info) Description 10/23/2024 Refill [facility] & PEDS [address] [place] [address] Alexander La MD [address] [place] [address] Social History Tobacco Use Types Packs/Day Years Used Date Smoking Tobacco: Every Day Cigarettes 0.5 30 Passive Smoke Exposure: Current Smokeless Tobacco: Never Alcohol Use Standard Drinks/Week Comments Never 0 (1 standard drink = 0.6 oz pur e alcohol) Housing Stability Answer Date Recorded What is your housing situation today? I have andre coelho 09/18/[address] you li ve. Do you have problems with any of the following? None of the above 09/18/2024 Food Insecurity Answer Date Recorded Within the past 12 months, y ou worried that your food would run out before you got money to buy more: Never True 09/18/2024 Within the past 12 months,th e food you bought just didn't last and you didn't have enough money to get more: Never True Transportation Answer Date Recorded In the past 12 months, has l ack of transportation kept you from medical appts, meetings, work or from getting things needed for daily living? No 09/18/2024 Utilities Answer Date Recorded In the past 12 months, has t he electric, gas, oil or water company threatened to shut off services in your home? No 09/18/2024 Internet Access Answer Date Recorded Internet Access Q1 Yes 09/18/2024 Internet Access Q2 Not on file 09/18/2024 Comments No Sex and Gender Information Value [...] 01/30/2025 9:00 AM EDT Office Visit [facility] ADULT DENTAL [address] [place] [address] Oc Rubi DDS [address] [place] [address] 02/03/2025 11:15 AM EDT Telemedicine [facility] MED [facility] [address] [place] [address] Alexander La MD [address] [place] [address] 02/21/2025 2:15 PM EDT Office Visit [facility] AD[facility] [address] [place] [address] Loy Melchor documented as of this encounter Visit Diagnoses Not on filedocumented in this encounter Care Teams Wafer Polisher Relationship Specialty Start Date End Date Alexander La MD [address] [place] [address] PCP - General Internal Medicine 09/24/19 Jani Coreas Nurse ResearchElectronic Train Control Technician 01/25/23 Doug Posada Jr Nurse ResearchElectronic Train Control Technician 05/13/24 documented as of this encounter
--- OUTSIDE RECORDS SUMMARY | 2025-01-23 14:03 | XMS_ITS | Clinical Summary ---
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 D-1000 Extra Strength 25 MCG (1000 UT) tablet Take 25 mcg by mouth in the morning. 04/16/20 22 Active Blood Pressure kit 1 kit in the morning. 1 kit 09/16/19 23 Active lidocaine (Lidoderm) 5 % patchIndicatio ns:Chronic bilateral low back pain with bilateral sciatica APPLY 1 PATCH TOPICALLY IN THE MORNING. 30 patch 1 11/18/19 24 Active tiZANidine (Zanaflex) 2 MG tabletIndicati ons:Chronic back pain greater than 3 months duration Take 1 tablet (2 mg) by mouth 3 times daily for 10 days. 30 tablet 11/16/19 24 Active celecoxib (CeleBREX) 200 MG capsule Take 1 capsule by mouth every 12 (twelve) hours. Active clonazePAM (KlonoPIN) 0.5 MG tablet Take 0.5 mg by mouth if needed in the morning, at noon, and at bedtime for anxiety. Active DULoxetine (Cymbalta) [address] capsule TAKE 1 CAPSULE BY MOUTH EVERY MORNING DEPRESSION AND ANXIETY Active melatonin 5 MG tablet TAKE 2 TABLETS BY MOUTH AT BEDTIME NEEDED 11/12/19 24 Active OLANZapine (ZyPREXA) 20 MG tablet TAKE 1 TABLET BY MOUTH AT BEDTIME VOICES, PARANOIA, MOOD 10/25/19 24 Active perphenazine 4 MG tablet TAKE 1 TABLET BY MOUTH 3 TIMES A DAY FOR ANXIETY/RACING THOUGHTS 10/25/19 24 Active zolpidem (Ambien) 10 MG tablet TAKE 1/2 -1 TABLET BY MOUTH AT BEDTIME NEEDED FOR INSOMNIA Active acetaminophen (Tylenol) 500 MG tablet Take 1 tablet (500 mg) by mouth every 6 (six) hours if needed for mild pain for up to 20 doses. 20 tablet 03/06/20 24 Active omeprazole (PriLOSEC) [address] capsule TAKE 1 CAPSULE BY MOUTH EVERY DAY 90 capsule 3 04/15/20 24 Active loratadine (Claritin) 10 MG tabletIndicati ons:Seasonal allergies TAKE 1 TABLET BY MOUTH EVERY DAY IN THE MORNING 90 tablet 1 06/18/19 25 Active hydrOXYzine HCl (Atarax) 10 MG tablet TAKE 1 TABLET BY MOUTH TWICE A DAY NEEDED FOR ANXIETY DO NOT TAKE AT SAME TIME KLONOPIN 07/14/19 25 Active levothyroxine (Synthroid, Levoxyl) 125 MCG tablet Take 1 tablet (125 mcg) by mouth Once per day. 90 tablet 2 09/28/19 25 026 Active losartan (Cozaar) 50 MG tablet Take 1 tablet (50 mg) by mouth in the morning. 90 tablet 3 09/28/19 25 026 Active fluticasone (Flonase) 50 MCG/ACT nasal sprayIndicatio ns:Seasonal allergies SPRAY 2 SPRAYS INTO EACH NOSTRIL IN THE MORNING 48 mL 11/16/19 25 Active docusate sodium (Colace) 100 MG capsule TAKE 1 CAPSULE BY MOUTH TWICE A DAY 180 capsule 11/23/19 25 Active ibuprofen 800 MG tablet TAKE 1 TABLET BY MOUTH EVERY 8 HOURS NEEDED FOR MILD PAIN. 90 tablet 1 01/18/20 25 Active ibuprofen 800 MG tablet TAKE 1 TABLET BY MOUTH EVERY 8 HOURS NEEDED FOR MILD PAIN. 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 Small blood noted. Will send for culture Urinary frequency 04/04/2023 Chronic pain of both knees 03/15/2023 Assessment & Plan (03/15/2023 9:53 AM EST): No swelling, no erythema, no fluid collectin, able to bear weight, will order bilateral knee xray to evaluate severity of OA, and will refer to PT Acquired hypothyroidism 10/25/2022 Assessment & Plan (09/27/2024 9:38 AM EDT): Clinically euthyroid, will order new labs for guidance of therapy Assessment & Plan (03/15/2023 9:51 AM EST): On levothyroxine, refers taking it daily, new labs previously ordered not done, will follow up results as soon as done Benzodiazepine dependence 10/25/2022 Chronic back pain greater than 3 months duration 10/25/2022 Chronic hepatitis C 10/25/2022 Assessment & Plan (12/19/2022 2:21 PM EDT): Patient wants to get treated, oriented of importance of adhering to therapy and avoid missing appointment. Diverticular disease 10/25/2022 Elevated LFTs 10/25/2022 Gastroesophageal reflux disease without esophagi tis 10/25/2022 Assessment & Plan (03/15/2023 9:51 AM EST): On omeprazole, lifestyle modifications recommended, no warning signs Mood disorder 10/25/2022 Chronic idiopathic constipation 09/15/2022 Assessment & Plan (09/15/2022 1:29 PM EDT): Increase water, increase fiber in diet, will prescribe a stool softener, Primary hypertension 09/15/2022 Assessment & Plan (10/29/2024 10:46 AM EDT): Controlled, keep low sodium diet and exercise as tolerated, keep current medications, target <140/90, keep bp log Assessment & Plan (09/27/2024 9:38 AM EDT): Not controlled, will increase losartan to 50mg, keep low sodium diet and exercise as tolerated, keep bp log for next visit target <140/90 Assessment & Plan (03/15/2023 9:50 AM EST): Controlled, continue losartan, reinforced low sodium diet and exercise as tolerated, keep bp log, follow up in 4 months Assessment & Plan (12/19/2022 2:21 PM EDT): Today was at target, she could not provide me a bp log, but refers stays below 140/90, Told to get blood work done, will follow up in 3 months Assessment & Plan (10/25/2022 1:24 PM EDT): Patient refers taking it daily, but could not provide me a bp log, she will call back with log, continue losartan, reinforced low sodium diet and exercise as tolerated, follow up in 2 months. Assessment & Plan (09/15/2022 1:29 PM EDT): Elevated bp on multiple occasions, will start low dose losartan, decrease sodium in diet, new labs ordered, will follow up in 1month Screening for colon cancer 09/15/2022 Assessment & Plan (03/15/2023 9:52 AM EST): Patient prefers cologuard, risk vs benefits dscussed, will place order Assessment & Plan (09/15/2022 1:30 PM EDT): Will refer to gi for screening colonoscopy Screening for cervical cancer 09/15/2022 Assessment & Plan (04/04/2023 10:25 AM EST): -last pap 11/2018 neg NIL/HPV negative -remote hx of abnormal pap with normal repeat -pap with co-testing done today -routine screening if normal results Assessment & Plan (09/15/2022 1:30 PM EDT): Will refer for a pap smear Encounter for screening mamm ogram for malignant neoplasm of breast 09/15/2022 Assessment & Plan (04/04/2023 10:26 AM EST): -[place] fax mammogram order to [facility] Assessment & Plan (09/15/2022 1:30 PM EDT): Will order a mammogram Screening for lung cancer 09/15/2022 Assessment & Plan (09/15/2022 1:31 PM EDT): >20 pack year hx, will refer for lung cancer screening Encounters Date Type Department Care Team Description 01/17/2025 Refill [facility] [address] [place] [phone] Alexander La MD 11/21/2024 Refill [facility] [address] [place], [place] [phone] Elsa Black MD 11/19/2024 Telephone [facility] [address] [place], [place] [phone] Georgie Toro DDS rs cancelled appt due to covid resident 11/14/2024 Refill [facility] [address] [place], [place] [phone] Alexander La MD Seasonal allergies 11/12/2024 Orders Only GENERIC EXTERNAL DATA DEPARTMENT Provider, Generic External Data 10/28/2024 8:45 AM EDT Telemedicine [facility] [address] [place] [address] Alexander La MD Partial nodular transformation of liver (Primary Dx); Kidney cysts; Primary hypertension 10/28/2024 Travel 10/25/2024 Telephone [facility] [address] [place] [phone] Alexander La MD chart prep 10/23/2024 Refill [facility] [address] [facility] [place] [address] Alexander La MD from Last 3 Months Immunizations Immunization Administration Dates Next Due Hep A / Hep B 03/19/2018,02/16/2018 Hep A, Adult 05/26/2017,07/21/2005 Hep B, Adolescent or Pediatric 01/14/2011,1999 Hep B, adult 04/25/2007,08/25/2005,07/21/2005 Influenza injectable quadriv alent preservative free 03/15/2023,02/20/2019,03/09/2017 Influenza, Split (incl. janette fied surface antigen) 02/22/2013,01/30/2012 MMR 03/19/2018,06/09/1998 Pneumococcal Polysaccharide PPSV23 02/12/2018 Tdap 01/17/2020,06/30/2012,01/25/2011 Family History Medical History Relation Name Comments Lung cancer Mother Relation Name Status Comments Mother Social History Tobacco Use Types Packs/Day Years Used Date Smoking Tobacco: Every Day Cigarettes 0.5 30 Passive Smoke Exposure: Current Smokeless Tobacco: Never Tobacco Cessation:Ready to Q uit: Not Asked; Counseling Given: Not Answered Alcohol Use Standard Drinks/Week Comments Never 0 (1 standard drink = 0.6 oz pur e alcohol) Depression Answer Date Recorded Patient Health Questionnaire-9 Score 4 10/28/2024 Patient Health Questionnaire-9 Score 4 10/28/2024 Last PHQ-9: Questionnaire Data Not on file 0 10/28/2024 Housing Stability Answer Date Recorded What is [...] off services in your home? No 09/18/2024 Depression Answer Date Recorded Patient Health Questionnaire-2 Score 2 10/28/2024 Internet Access Answer Date Recorded Internet Access Q1 Yes 09/18/2024 Internet Access Q2 Not on file 09/18/2024 Comments No Sex and Gender Information Value Date Recorded Sex Assigned at Female 03/07/2022 10:15 AM EDT Legal Sex Female 10:15 AM EDT Gender Identity Choose not to disclose 10:15 AM EDT Sexual Orientation Choose not to disclose 2021 10:15 AM EDT Last Filed Vital Signs Vital Sign Reading Time Taken Comments Blood Pressure 102/85 10/28/2024 9:09 AM EDT Pulse 68 09/27/2024 9:11 AM EDT Temperature 37.1 C (98.7 F) 09/27/2024 9:11 AM EDT Respiratory Rate 16 09/27/2024 9:11 AM EDT Oxygen Saturation 97% 07/27/2023 10:47 AM EDT Inhaled Oxygen Concentration - - Weight 94.8 kg (209 lb) 09/27/2024 9:11 AM EDT Height 162.6 cm (5' 4 ) 09/27/2024 9:11 AM EDT Body Mass Index 35.87 09/27/2024 9:11 AM EDT Plan of Treatment Upcoming Encounters Date Type Department Care Team (Late st Contact Info) Description 01/30/2025 9:00 AM EDT Office Visit [facility] [address] [place] [address] Oc Rubi, NURIA [address] [place] [address] 02/03/2025 11:15 AM EDT Telemedicine [facility] [address] [place] [phone] Alexander La MD [address] [place] [address] 02/21/2025 2:15 PM EDT Office Visit [facility] [address] [place] [address] Loy Melchor Health Maintenance Due Date Last Done Comments CT Colonography 1970 Colonoscopy 1970 FIT 1970 Sigmoidoscopy 1970 Disability Screening 1970 Alcohol/Substance Use Screening 1982 Pneumococcal Vaccine: 50+ Years (2 of 2 - PCV) 02/12/2019 02/12/2018 Zoster Vaccines (1 of 2) 2020 FOBT 03/27/2024 03/27/2023 COVID-19 Vaccine (1 - season) 2025 Influenza Vaccine (#1) 2025 , 02/20/2019, 03/09/2017, Additional history exists Dental Prophylaxis 02/19/2025 08/19/2024, 12/05/2023 Dental Oral Exam 03/15/2025 09/11/2024, 03/2024, 03/23/2023 Mammogram 05/12/2025 05/12/2023 Dental X-Ray: Bitewings 08/20/2025 08/19/2024, 03/23 Tobacco Screening 09/11/2025 09/11/2024 SDOH Screening 09/18/2025 09/18/2024 Depression Screening 10/28/2025 10/28/2024, 10/29/19 Dental X-Ray: Full Mouth 03/24/2026 03/23/2023 Colorectal Cancer Screening 03/27/2026 FIT DNA/Cologuard 03/27/2026 03/27/2023 Pap Smear 04/04/2026 04/04/2023 Cervical Cancer Screening 04/04/2028 HPV/Cotest 04/04/2028 04/04/2023, 11/27/2018 Lipid Panel 09/27/2029 09/27/2024, 12/2022, 09/08/2021 DTaP/Tdap/Td Vaccines (4 - Td or Tdap) 01/16/2030 01/17/2020, 06/30/2012, 01/25/2011 RSV Patients and Patients Aged 60 years or older (1 - 1-dose 75+ series) 2045 Hepatitis A Vaccines Completed 03/19/2018, 02/16/2018, 05/26/2017, Additional history exists Hepatitis B Vaccines Completed 03/19/2018, 02/16/2018, 01/14/2011, Additional history exists HIV Screening Completed 03/15/2023, 01/06/2022 HIB Vaccines Aged Out No longer eligi [...] patient's age to complete this topic Meningococcal Vaccine Aged Out No ronald derick eligible based on patient's age to complete this topic RSV under 20 months Aged Out No longe r eligible based on patient's age to complete this topic Rotavirus Vaccines Aged Out No longer eligible based on patient's age to complete this topic Procedures Procedure Name Priority Date/Time Associated Diagnosis Comments URINALYSIS, COMPLETE, WITH REFLEX TO CULTURE Routine 11/12/2024 7:56 AM EDT XR LUMBAR SPINE 2-3 VIEWS Routine 11/12/2024 7:22 AM EDT US PELVIS TRANSVAGINAL Routine 10/31/2024 1:51 PM EDT Pelvic pain LIPID PANEL, STANDARD Routine 09/27/2024 12:00 AM EDT Primary hypertension PERIODIC ORAL EVALUATION - ESTABLISHED PATIENT Routine 09/11/2024 2:00 PM EDT Full PROPHYLAXIS - ADULT Routine 08/19/2024 2:00 PM EDT BITEWINGS - 4 RADIOGRAPHIC IMAGES Routine 08/19/2024 2:00 PM EDT BI MAMMOGRAM SCREENING TOMOSYNTHESIS BILATERAL Routine 05/12/2023 2:10 PM EST HPV MRNA E6/E7 REFLEX TO HPV 16, 18/45 Routine 04/04/2023 12:00 AM EST PAP SMEAR Routine 04/04/2023 12:00 AM EST LAB COLOGUARD COLON CANCER SCREEN Routine 03/27/2023 8:11 AM EST Screening for colon cancer INTRAORAL - COMPLETE SERIES OF RADIOGRAPHIC IMAGES Routine 03/23/2023 3:00 PM EST HIV 1/2 ANTIGEN/ANTIBODY, FOURTH GENERATION W/RFL Routine 03/15/2023 9:04 AM EST from Last 3 Months or Most Recently Relevant to Health Maintenance Results * (ABNORMAL) Urinalysis, Complete, with Reflex to Culture (11/12/2024 7:56 AM EDT) Color Urine Yellow [facility] Appearance Urine Clear [facility] PH 5.5 5.0 - 9.0 [facility] Glucose Urine UA Negative Negative mg/dL [facility] Urine Blood Large (3+)(A) Negative [facility] Specific [place] - Urine 1.025 1.005 - 1.025 [facility] Urine Protein Trace Neg-Trace mg/dL [facility] Urine Ketones Trace Negative mg/dL [facility] Nitrite Urine Negative Negative [facility] Leukocyte Esterase Urine Negative Negative [facility] RBC Urine >20(A) 0 - 2 /HPF [facility] Urine WBC 0-5 0 - 5 /HPF [facility] Urine Squamous Epithelial Cell 3-5 0 - 2 /HPF [facility] Urine Bacteria Trace None Seen [facility] Hyaline Casts, Urine 3-5 0 - 2 /LPF [facility] 11/12/2024 7:56 AM EDT 11/12/2024 8:04 AM EDT Narrative [facility] - 11/12/2024 8:17 AM EDT [id number], Clean Catch us Generic External Data Provider LAB URINE ORDERAB LES Final Result Performing Organization Address City/State/[facility] Co de Phone Number [facility] [address] [place] [phone] * XR Lumbar Spine 2-3 Views (11/12/2024 7:22 AM EDT) Anatomical Region Laterality Modality Spine, L-spine Radiographic Judith ging 11/12/2024 7:22 AM EDT Narrative 11/12/2024 8:45 AM EDT [address] [address] XRay Report Signed Patient: Maggie Guerrero MR#: [id number] 796 : 1970 Acct:[id number] Age/Sex: 54 / F ADM Date: 11/12/24 Loc: HO.ED Attending Dr: Ordering Physician: Rhonda Garcia DO Date of Service: 11/12/24 Procedure(s): XR lumbar spine 2-3V Accession Number(s): [id number] cc: Alexander La MD; Rhonda Garcia DO EXAMINATION: XR LUMBOSACRAL SPINE CLINICAL INFORMATION: low back COMPARISON: April 22, 2021. TECHNIQUE: Three views of the lumbosacral spine. FINDINGS: Rudimentary ribs at T12. Prominent right transverse process of L5 articulating with S1 Grade 1 anterolisthesis L4-5. Facet joint hypertrophy L4-5 and L5-S1.. XR/XR lumbar spine 2-3V IMPRESSION: Grade 1 anterolisthesis L4-5. Posterior Bertolotti syndrome, right side. Electronically signed by: Chris Davison MD 11/12/2024 08:42 AM EDT Dictated By: Chris Kaminski MD Signed By: <Electronically signed by Chris Pinedo MD in OV> 11/12/2442 DD/ 1 TD/TT: 11/12/24828 Property Management Intern: Procedure Note Johnna, Image - 11/12/2024 [place] [address] XRay Report Signed Patient: Maggie GuerreroMR#: [id number] 796 : 1970Acct:[id number] Age/Sex: 54 / FADM Date: 11/12/24 Loc: HO.ED Attending Dr: Ordering Physician: Rhonda Garcia DO Date of Service: 11/12/24 Procedure(s): XR lumbar spine 2-3V Accession Number(s): [id number] cc: Alexander La MD; Rhonda Garcia DO EXAMINATION: XR LUMBOSACRAL SPINE CLINICAL INFORMATION: low back COMPARISON: April 22, 2021. TECHNIQUE: Three views of the lumbosacral spine. FINDINGS: Rudimentary ribs at T12. Prominent right transverse process of L5 articulating with S1 Grade 1 anterolisthesis L4-5. Facet joint hypertrophy L4-5 and L5-S1.. XR/XR lumbar spine 2-3V IMPRESSION: Grade 1 anterolisthesis L4-5. Posterior Bertolotti syndrome, right side. Electronically signed by: Chris Davison MD 11/12/2024 08:42 AM EDT Dictated By: Chris Kaminski MD Signed By: <Electronically signed by Chris Pinedo MDin OV> 11/12/2442 DD/ 1 TD/TT: 11/12/24828 Property Management Intern: [facility] External Provider IMG XR PROCEDURES Edited Result - Final * US Pelvis Transvaginal (10/31/2024 1:51 PM EDT) Anatomical Region Laterality Modality Pelvis Ultrasound 10/31/2024 1:51 PM EDT Narrative 10/31/2024 2:38 PM EDT [place] [address] Ultrasound Report Signed Patient: Maggie Guerrero MR#: [id number] 796 : 1970 Acct:[id number] Age/Sex: 54 / F ADM Date: 10/31/24 Loc: HO.US Attending Dr: Alexander Murray MD Ordering Physician: Alexander La MD Date of Service: 10/31/24 Procedure(s): US pelvic and transvaginal Accession Number(s): [id number] cc: Alexander La MD EXAMINATION: US PELVIS TRANSABDOMINAL AND TRANSVAGINAL HISTORY: PELVIC PERINEAL PAIN COMPARISON: Correlation is made with a CT of the abdomen and pelvis with contrast dated 10/10/2024. TECHNIQUE: Transabdominal and endovaginal real-time 2D eastman-scale ultrasound was performed. FINDINGS: Uterus: The uterus is normal in size, measuring 7.1 x 4.1 x 4.9 cm. Myometrium demonstrates heterogeneous echotexture. There are multiple fibroids noted including a right-sided fibroid measuring 5 x 3 x 6 mm, a fundal fibroid measuring 18 x 18 x 20 mm, and a left-sided fibroid measuring 8 x 9 x 7 mm. Endometrium: The endometrial stripe measures 3 mm in thickness. There are nabothian cysts in the cervix. Right ovary: The right ovary measures 2.3 x 1.3 x 1.5 cm. There is a 6 mm echogenic focus in the right ovary which may represent a tiny hemorrhagic cyst. Left ovary: The left ovary measures 2.3 x 1.7 x 1.5 cm. The left ovary is normal in size and echotexture. Pelvic fluid: none. US/US pelvic and transvaginal IMPRESSION: Fibroid uterus as described. Electronically signed by: Perfecto Choudhary MD 10/31/2024 02:35 PM EDT Dictated By: Perfecto Choudhary MD Signed By: <Electronically signed by Perfecto Choudhary MD in OV> 10/31/24 1435 DD/ 1351 TD/TT: 10/31/24 1409 Property Management Intern: Procedure Note Donotuseinterpreter, Image - 10/31/2024 [place] [address] Ultrasound Report Signed Patient: Maggie GuerreroMR#: [id number] : 1970Acct:[id number] Age/Sex: 54 / FADM Date: 10/31/24 Loc: HO.US Attending Dr: Alexander Murray MD Ordering Physician: Alexander La MD Date of Service: 10/31/24 Procedure(s): US pelvic and transvaginal Accession Number(s): [id number] cc: Alexander La MD EXAMINATION: US PELVIS TRANSABDOMINAL AND TRANSVAGINAL HISTORY: PELVIC PERINEAL PAIN COMPARISON: Correlation is made with a CT of the abdomen and pelvis with contrast dated 10/10/2024. TECHNIQUE: Transabdominal and endovaginal real-time 2D eastman-scale ultrasound was performed. FINDINGS: Uterus: The uterus is normal in size, measuring 7.1 x 4.1 x 4.9 cm. Myometrium demonstrates heterogeneous echotexture. There are multiple fibroids noted including a right-sided fibroid measuring 5 x 3 x 6 mm, a fundal fibroid measuring 18 x 18 x 20 mm, and a left-sided fibroid measuring 8 x 9 x 7 mm. Endometrium: The endometrial stripe measures 3 mm in thickness. There are nabothian cysts in the cervix. Right ovary: The right ovary measures 2.3 x 1.3 x 1.5 cm. There is a 6 mm echogenic focus in the right ovary which may represent a tiny hemorrhagic cyst. Left ovary: The left ovary measures 2.3 x 1.7 x 1.5 cm. The left ovary is normal in size and echotexture. Pelvic fluid: none. US/US pelvic and transvaginal IMPRESSION: Fibroid uterus as described. Electronically signed by: Perfecto Choudhary MD 10/31/2024 02:35 PM EDT RP Dictated By: Perfecto Choudhary MD Signed By: <Electronically signed by Perfecto Choudhary MD in OV> 10/31/24 1435 DD/ 1351 TD/TT: 10/31/24 1409 Property Management Intern: Alexander Murray MD IMG US PROCEDURES Final Result * (ABNORMAL) Lipid Panel, Standard (09/27/2024 12:00 AM EDT) Triglycerides 160(H) <150 mg/dL [facility] Comment:Desirable Triglyceri de: less than 150 mg/dLBorderline High Triglyceride 150-199 mg/dLHigh Triglyceride: 200-499 mg/dLVery High Triglyceride: greater than or equal to 5OO mg/dL Cholesterol 176 <200 mg/dL [facility] Comment:Desirable Cholestero l: less than 200 mg/dLBorderline High Cholesterol: 200-239 mg/dLHigh Cholesterol: greater than 239 mg/dL LDL Cholesterol Calculated 103(H) <100 mg/dL [facility] Comment:Desirable LDL: less than 100 mg/dLNear Optimal/Above Optimal LDL: 110- 129 mg/dLBorderline High LDL: 130-159 mg/dLHigh LDL: 160-189 mg/dLVery High LDL: greater than or equal to 190 mg/dL HDL Cholesterol 41 >40 mg/dL [facility] Comment:Desirable HDL: great er than 40 mg/dL Note: This HDL assay may give artificially low results in patients with liver disease. Blood Venous blood specimen / Unknown 09/27/2024 09/27/2024 Alexander Murray MD LAB BLOOD ORDERABL ES Final Result [facility] [address] [place] [address] [phone] * BI Mammogram Screening Tomosynthesis Bilateral (05/12/2023 2:10 PM EST) Anatomical Region Laterality Modality Breast Bilateral Mammography 05/12/2023 2:10 PM EST Narrative 05/30/2023 4:34 PM EST [address] [place] [address] Mammography Report Signed Patient: Maggie Guerrero MR#: [id number] 796 : 1970 Acct:[id number] Age/Sex: 53 / F ADM Date: 05/12/23 Loc: HO.MAMMO Attending Dr: Alexander Murray MD Ordering Physician: Alexander La MD Res ults: 1Negative Date of Service: 05/12/23 Follow Up: 1 Year From Orig inal Mammogram Procedure(s): MM tomosynthesis screening BI Accession Number(s): [id number] cc: Alexander La MD EXAMINATION: MM SCREENING DIGITAL BREAST TOMOSYNTHESIS, BILATERAL CLINICAL INFORMATION: Screening. Asymptomatic. COMPARISON: Mammography: None. Baseline exam. TECHNIQUE: Digital breast tomosynthesis is performed in both the craniocaudal and mediolateral oblique views along with computer-aided detection (CAD). Synthesized 2D images are generated from the tomosynthesis. FINDINGS: There are scattered areas of fibroglandular density (ACR BI-RADS breast composition Category b). There are no suspicious masses, suspicious grouped calcifications, or areas of architectural distortion in either breast. The parenchymal pattern is stable from prior exams. No skin or axillary abnormalities. MM/MM tomosynthesis screening BI IMPRESSION: No mammographic evidence of malignancy. ASSESSMENT: BI-RADS BI-RADS 1 - Negative RECOMMENDATION: Routine annual mammography screening. 1 year F/U This examination should not preclude the clinical evaluation of a suspicious palpable abnormality. This patient's information was entered into a reminder system with a target due date for their next mammogram. Dictated By: Beni Riley MD Signed By: <Electronically signed by Beni Riley MD in OV> 05/30/23 1630 DD/ 1410 TD/TT: Property Management Intern: Procedure Note Donotuseinterpreter, Image - 05/30/2023 [facility] [address] [place], [place] [address] Mammography Report Signed Patient: Maggie GuerreroMR#: [id number] : 1970Acct:[id number] Age/Sex: 53 / FADM Date: 05/12/23 Loc: HO.MAMMO Attending Dr: Alexander Murray MD Ordering Physician: Alexander La ults: 1Negative Date of Service: 05/12/23Follow Up: 1 Year From Orig inal Mammogram Procedure(s): MM tomosynthesis screening BI Accession Number(s): [id number] cc: Alexander La MD EXAMINATION: MM SCREENING DIGITAL BREAST TOMOSYNTHESIS, BILATERAL CLINICAL INFORMATION: Screening. Asymptomatic. COMPARISON: Mammography: None. Baseline exam. TECHNIQUE: Digital breast tomosynthesis is performed in both the craniocaudal and mediolateral oblique views along with computer-aided detection (CAD). Synthesized 2D images are generated from the tomosynthesis. FINDINGS: There are scattered areas of fibroglandular density (ACR BI-RADS breast composition Category b). There are no suspicious masses, suspicious grouped calcifications, or areas of architectural distortion in either breast. The parenchymal pattern is stable from prior exams. No skin or axillary abnormalities. MM/MM tomosynthesis screening BI IMPRESSION: No mammographic evidence of malignancy. ASSESSMENT: BI-RADS BI-RADS 1 - Negative RECOMMENDATION: Routine annual mammography screening. 1 year F/U This examination should not preclude the clinical evaluation of a suspicious palpable abnormality. This patient's information was entered into a reminder system with a target due date for their next mammogram. Dictated By: Beni Riley MD Signed By: <Electronically signed by Beni Riley MD in OV> 05/30/23 1630 DD/ 1410 TD/TT: Property Management Intern: Alexander Murray MD IMG BI PROCEDURES Final Result * HPV mRNA E6/E7 w/Reflex to HPV Genotypes 16, 18/45 (04/04/2023 12:00 AM EST) HPV nRNA E6/E7 Not Detected Not Detected [facility] Comment:Methodology: Transcr iption-Mediated AmplificationThis assay detects E6/E7 viral messenger RNA (mRNA) from 14high-risk HPV types (16,18,31,33,35,39,45,51,52,56,58,59,66,68).Cervical sources are required for HPV testing.If a vaginal source from a patient who has had atotal hysterectomy with removal of cervix wassubmitted, please contact the testing laboratoryfor alternative testing options.For additional information, please refer tohttp://education.myDocket/faq/[email or web address](This link if provided for information/educational purposes only.)THIS TEST WAS PERFORMED AT:[employer] [facility] [place] [phone] BAUTISTA MD HPV mRNA E6/E7 TNP [facility] HPV 16 RNA TNP [facility] HPV 18/45 RNA [facility] 04/04/2023 2023 8:0 0 AM EST us Elbert Yousif [facility] LAB CYTOLOGY ORDERABLES F inal Result [facility] [address] [place] [phone] * Pap Smear (04/04/2023 12:00 AM EST) 04/04/2023 2023 8:0 0 AM EST Narrative [facility] - 04/16/2023 10:06 AM EST ----- ------- Name: Maggie Guerrero Age/Sex: 52/F : 1970 Unit#: [id number] Attend Dr: ELBERT YOUSIF [facility] Re04/04/23 Status: DEP REF Location: [facility] Disch: ----- ------- SPEC : [id number] RECD: 04/05/23 STATUS: TABITHA SANCHEZ NUM: [id number] AUBREE: 04/04/23-[address]: ELBERT YOUSIF [facility] ENTERED: 04/05/23 SP TYPE: Pap Smr OTHR DR: ORDERED: Pap Smear, PAP path review Interpretation General Category: Negative for intraepithelial lesion/malignancy. Adequacy: Endocervical component present. Interpretation: Mild inflammation with associated cellular changes. HPV mRNA E6/E7: Not Detected This assay detects E6/E7 viral messenger RNA (mRNA) from 14 high-risk HPV types (16, 18, 31, 33, 35, 39, 45, 51, 52, 56, 58, 59, 66, 68) HPV testing performed by [facility], [place], [place]. See reference laboratory portion of the EMR for entire report. Clinical Information LMP: Postmenopausal Previous PAP test: 2019, WNL Material Received ThinPrep-Cervical ----- ------- Signed (signature on file) Marquise Wright MD 04/16/23 1006 ----- ------- END OF REPORT Elbert Yousif [facility] LAB CYTOLOGY ORDERABLES F inal Result [facility] [address] [place] [phone] * Cologuard?? colon cancer screening (03/27/2023 8:11 AM EST) [facility] Cologuard Result Negative Negative 04/07/20 5:15 PM EST [facility] (CLIA #:[id number]) Comment: NEGATIVE TEST RESULT. A negative Cologuard result indicates a low likelihood that a colorectal cancer (CRC) or advanced adenoma (adenomatous polyps with more advanced pre-malignant features) is present. The chance that a person with a negative Cologuard test has a colorectal cancer is less than 1 in 1500 (negative predictive value >99.9%) or has an advanced adenoma is less than 5.3% (negative predictive value 94.7%). These data are based on a prospective cross-sectional study of 10,000 individuals at average risk for colorectal cancer who were screened with both Cologuard and colonoscopy. (Olivia Lacey. et al, N Engl J Med 2014;370(14):7254-2229) The normal value (reference range) for this assay is negative. COLOGUARD RE-SCREENING RECOMMENDATION: Periodic colorectal cancer screening is an important part of preventive healthcare for asymptomatic individuals at average risk for colorectal cancer. Following a negative Cologuard result, the Italian Cancer Society and U.S. Multi-Society Task Force screening guidelines recommend a Cologuard re-screening interval of 3 years. References: Italian Cancer Society Guideline for Colorectal Cancer Screening: https://www.cancer.org/cancer/wgvok-ygrszj-oksgwy/qlpapsjnu-tunhwldic-ddtrtko/ac s-rec ommendations.html.; Francisco FORD, Kayla LAURA, Adriano EasonK, Colorectal Cancer Screening: Recommendations for Physicians and Patients from the U.S. Multi-Society Task Force on Colorectal Cancer Screening , Am J Gastroenterology 2017; 112:6603-4585. TEST DESCRIPTION: Composite algorithmic analysis of stool DNA-biomarkers with hemoglobin immunoassay. Quantitative values of individual biomarkers are not reportable and are not associated with individual biomarker result reference ranges. Cologuard is intended for colorectal cancer screening of adults of either sex, 45 years or older, who are at average-risk for colorectal cancer (CRC). Cologuard has been approved for use by the U.S. FDA. The performance of Cologuard was established in a cross sectional study of average-risk adults aged 50-84. Cologuard performance in patients ages 45 to 49 years was estimated by sub-group analysis of near-age groups. Colonoscopies performed for a positive result may find as the most clinically significant lesion: colorectal cancer [4.0%], advanced adenoma (including sessile serrated polyps greater than or equal to 1cm diameter) [20%] or non- advanced adenoma [31%]; or no colorectal neoplasia [45%]. These estimates are derived from a prospective cross-sectional screening study of 10,000 individuals at average risk for colorectal cancer who were screened with both Cologuard and colonoscopy. (Olivia Chavira et al, N Engl J Med 2014;370(14):2939-0517.) Cologuard may produce a false negative or false positive result (no colorectal cancer or precancerous polyp present at colonoscopy follow up). A negative Cologuard test result does not guarantee the absence of CRC or advanced adenoma (pre-cancer). The current Cologuard screening interval is every 3 years. (Italian Cancer Society and U.S. Multi-Society Task Force). Cologuard performance data in a 10,000 patient pivotal study using colonoscopy as the reference method can be accessed at the following location: www.[employer]/results. Additional description of the Cologuard test process, warnings and precautions can be found at www.ProfusaogWhatsNexxrd.com. Stool specimen (specimen) 03/27/2023 8:11 AM EST 03/29/2023 5:57 PM EST Alexander Murray MD LAB MOLECULAR DIAG NOSTICS ORDERABLES Final Result Performing Organization Address City/[facility] Co de Phone Number [facility] (CLIA #:[id number]) [place] [address], [place] [phone] * HIV-1/2 Antigen and Antibodies, Fourth Generation, with Reflexes (03/15/2023 9:04 AM EST) [facility] HIV AB/AG Nonreactive Nonreactive [facility] Comment:HIV-1 p24 Ag and/or HIV-1/HIV-2 Ab not detected.A test result that is nonreactive does not exclude thepossibility of exposure to or infection with HIV-1 and/orHIV-2. Nonreactive results in this assay for individualswith prior exposure to HIV-1 and/or HIV-2 may be due toantigen and antibody levels that are below the limit ofdetection of this assay.The [employer] HIV Ag/Ab Combo assay result andsupplemental assay results should be interpreted inconjunction with the patient's clinical presentation,history and other laboratory results. If the results areinconsistent with clinical evidence, additional testing issuggested to confirm the result. 03/15/2023 9:04 AM EST 03/15/2023 2:21 PM EST Alexander Murray MD LAB BLOOD ORDERABL ES Final Result Performing Organization Address [facility] Co de Phone Number [facility] [address] [place] [address] [phone] from Last 3 Months or Most Recently Relevant to Health Maintenance [place] [address] [place] [address] C[place] AD[place] Care Teams Plug Making Operator Relationship Specialty Start Date End Date Alexander La MD [address] [place] [phone] PCP - General Internal Medicine 09/24/19 Jani Coreas Proposal ConsultantSupervisor Cutting And Boning 01/25/23 Doug Posada Jr Proposal ConsultantSupervisor Cutting And Boning 05/13/24
--- OUTSIDE RECORDS SUMMARY | 2025-01-23 14:03 | XMS_ITS | Encounter Summary ---
Author Organization [employer] Address [address] [facility] [address] [place] [address] Care Team Providers Care Double End Tenon Operator Name Role Phone Alexander La MD Primary Care Prov ider Encounter Details Date Type Department Care Team ([facility] Contact Info) Description 06/16/2022 Telephone [facility] MED & PEDS [address] [place] [address] Alexander La MD [address] [place] [address] Social History Tobacco Use Types Packs/Day Years [...] Upcoming Encounters Date Type Department Care Team ([facility] Contact Info) Description 01/30/2025 9:00 AM EDT Office Visit [facility] ADULT DENTAL [address] [place], [place] [phone] Oc Rubi DDS [address] [place] [address] 02/03/2025 11:15 AM EDT Telemedicine [facility] MED & PEDS [address], [place] [phone] Alexander La MD [address] [place] [address] 02/21/2025 2:15 PM EDT Office Visit [facility] ADULT DENTAL [address] [place] [address] Loy Melchor documented as of this encounter Visit Diagnoses Not on filedocumented in this encounter Care Teams Double End Tenon Operator Relationship Specialty Start Date End Date Alexander La MD [address] [place] [address] PCP - General Internal Medicine 09/24/19 Jani Coreas Lsat InstructorScow Derrick Operator 01/25/23 Doug Posada Jr Lsat InstructorScow Derrick Operator 05/13/24 documented as of this encounter
--- OUTSIDE RECORDS SUMMARY | 2025-01-23 14:03 | XMS_ITS | Encounter Summary ---
Author Organization [employer] Address [address] [facility] 7t [place] [address] Care Team Providers Care Auger Supervisor Name Role Phone Alexander La MD Primary Care Prov ider Reason for Visit * Reason Comments Med Refill Encounter Details Date Type Department Care Team ([facility] st Contact Info) Description 06/22/2023 Refill [facility] CHC MED & PEDS [address] [place], [place] [phone] Elsa Black MD [address] [place] [address] Social History Tobacco Use Types Packs/Day Years Used Date Smoking Tobacco: Every Day Cigarettes 0.5 30 Smokeless Tobacco: Never Alcohol Use Standard Drinks/Week Comments Never 0 (1 standard drink = 0.6 oz pur e alcohol) Housing Stability Answer Date Recorded What is your housing situation today? I do not have housing (Staying with others, in a hotel, in a usp, living outside on the street, on a [...] Description 01/30/2025 9:00 AM EDT Office Visit [facility] ADULT DENTAL [address] [place] [address] Oc Rubi DDS [address] [place] [address] 02/03/2025 11:15 AM EDT Telemedicine [facility] MED & PEDS [address] [place] [address] Alexander La MD [address] [place] [address] 02/21/2025 2:15 PM EDT Office Visit [facility] ADULT DENTAL [address] [place] [address] Loy Melchor documented as of this encounter Visit Diagnoses Not on filedocumented in this encounter Care Teams Auger Supervisor Relationship Specialty Start Date End Date Alexander La MD [address] [place] [address] PCP - General Internal Medicine 09/24/19 Jani Coreas Manager Field InvestigationsRelay Man 01/25/23 Doug Posada Jr Manager Field InvestigationsRelay Man 05/13/24 documented as of this encounter
--- OUTSIDE RECORDS SUMMARY | 2025-01-23 14:03 | XMS_ITS | Encounter Summary ---
Author Organization [employer] Address [address] [facility] 7t [place] [address] Care Team Providers Care Wind Turbine Controls Engineer Name Role Phone Alexander La MD Primary Care Prov ider Reason for Visit * Reason Onset Date Comments rs cancelled appt due to covid resident 11/20/19 Encounter Details Date Type Department Care Team (Late st Contact Info) Description 11/19/2024 Telephone [facility] ADULT DENTAL [address] [place] [address] Georgie Toro, DDS [address] [place], [place] [phone] rs cancelled appt due to covid resident Social History Tobacco Use Types Packs/Day Years [...] encounter Miscellaneous Notes * Telephone Encounter - Angy Sigala - 11/19/2024 11:01 AM EDT Patient is calling in to rs cancelled appt due to having Covid. Patient was seeing a resident. Patient has been informed that schedule for residents currently not open. Will receive call from office to reschedule DR documented in this encounter Plan of Treatment Upcoming Encounters Date Type Department Care Team (Late st Contact Info) Description 01/30/2025 9:00 AM EDT Office Visit [facility] ADULT DENTAL [address] [place] [address] Oc Rubi DDS [address] [place] [address] 02/03/2025 11:15 AM EDT Telemedicine [facility] MED & PEDS [address] [place] [address] Alexander La MD [address] [place] [address] 02/21/2025 2:15 PM EDT Office Visit [facility] CHC ADULT DENTAL [address] [place] [address] Loy Melchor documented as of this encounter Visit Diagnoses Not on filedocumented in this encounter Additional Health Concerns Assessment Noted Time PHQ-9 Depression Total Score: 4 10/29/19 8:50 AM EDT documented as of this encounter Care Teams Wind Turbine Controls Engineer Relationship Specialty Start Date End Date Alexander La MD [address] [place] [address] PCP - General Internal Medicine 09/24/19 Jani Coreas Pie Dough RollerDispatcher Tow Truck 01/25/23 Doug Posada Jr Pie Dough RollerDispatcher Tow Truck 05/13/24 documented as of this encounter
--- OUTSIDE RECORDS SUMMARY | 2025-01-23 14:03 | XMS_ITS | Encounter Summary ---
Author Organization [employer] Address [address] [facility] 7t [place] [address] Care Team Providers Care Sheeter Waxer Operator Name Role Phone Alexander La MD Primary Care Prov ider Reason for Visit * Reason Onset Date Comments PT1 10/11/2023 Encounter Details Date Type Department Care Team ([facility] st Contact Info) Description 10/11/2023 Telephone [facility] CHC MED & PEDS [address] [place], [place] [phone] Alexander La MD [address] [place], [place] [phone] PT1 Social History Tobacco Use Types Packs/Day Years Used Date Smoking Tobacco: Every Day Cigarettes 0.5 30 Smokeless Tobacco: Never Alcohol Use Standard Drinks/Week Comments Never 0 (1 standard drink = 0.6 oz pur e alcohol) Housing Stability Answer Date Recorded What is your housing situation today? I do not have housing (Staying with others, in a hotel, in a half-way, living outside on the street, on a [...] encounter Miscellaneous Notes * Telephone Encounter - Whitney Lama - 10/11/2023 12:08 PM EDT Patient calling requesting PT1 Home Address verified: Y/N: Yes Provider name or facility name: [facility] Address: [address] [facility] Escort needed: Y/N: No Do you have a wheelchair: Y/N: No If yes- Manual or electric: n/a Visits: n/a documented in this encounter Plan of Treatment Upcoming Encounters Date Type Department Care Team ([facility] st Contact Info) Description 01/30/2025 9:00 AM EDT Office Visit [facility] ADULT DENTAL [address] [place] [address] Oc Rubi DDS [address] [place] [address] 02/03/2025 11:15 AM EDT Telemedicine [facility] MED & PEDS [address] [place] [address] Alexander La MD [address] [place] [address] 02/21/2025 2:15 PM EDT Office Visit [facility] ADULT DENTAL [address] [place] [address] Loy Melchor documented as of this encounter Visit Diagnoses Not on filedocumented in this encounter Care Teams Sheeter Waxer Operator Relationship Specialty Start Date End Date Alexander La MD [address] [place] [phone] PCP - General Internal Medicine 09/24/19 Jani Coreas Barrel Rifler BroachMethods And Procedures Analyst 01/25/23 Doug Posada Jr Barrel Rifler BroachMethods And Procedures Analyst 05/13/24 documented as of this encounter
== END 2025-01-23 12:24 | disposition home or self-care (01) ==
LOC: HO.HUSH 11:39
PROVIDERS: PCP Internal Medicine; Visit Provider Nurse Practitioner Family
DX: R31.29 Other microscopic hematuria (principal); R39.89 Other symptoms and signs involving the genitourinary system; F17.210 Nicotine dependence, cigarettes, uncomplicated; Z13.9 Encounter for screening, unspecified
CPT/HCPCS: 99204

== ENCOUNTER 2025-01-23 11:38 | Outpatient (REF) | payer MEDICAID, SELFPAY | END 2025-01-23 11:39 | disposition home or self-care (01) | LOC: HO.LAB 11:38 | PROVIDERS: PCP Internal Medicine; Visit Provider Nurse Practitioner Family | DX: R31.29 Other microscopic hematuria (principal); R39.89 Other symptoms and signs involving the genitourinary system; F17.210 Nicotine dependence, cigarettes, uncomplicated | CPT/HCPCS: 51798; 81003; 88112; 99212 ==

== ENCOUNTER 2025-03-31 14:02 | Outpatient (REF) | payer MEDICAID, SELFPAY ==
--- NOTE | ~2025-03-31 | US_ITS ---
EXAMINATION: US ABDOMEN HISTORY: Nodular liver, renal cysts TECHNIQUE: Real-time grayscale ultrasound imaging of the abdomen was performed and images were reviewed. COMPARISON: Comparison is made with the prior examination dated 02/25/2020. FINDINGS: Liver: The right lobe of the liver measures 14.2 cm in size. The left lobe of the liver measures 10.4 cm in size. The liver demonstrates coarsened echotexture and mildly nodular contour suggestive of cirrhosis. No focal mass or intrahepatic biliary ductal dilatation is identified. There is normal hepatopedal flow in the portal vein. Gallbladder and biliary tree: The gallbladder is surgically absent. The common bile duct is normal in caliber measuring 6 mm. Kidneys: The right kidney measures 10.6 cm in length and demonstrates a 7 x 5 x 8 mm cyst in the interpolar region. The left kidney measures 11.0 cm in length. The kidneys are otherwise unremarkable, without evidence of solid masses, hydronephrosis, or calculi. Pancreas: The pancreatic head, neck, and body are unremarkable. The pancreatic tail is obscured by bowel gas. Spleen: The spleen is normal in size and contour, measuring 11.0 cm in length. Abdominal aorta and inferior vena cava: The visualized portions of the abdominal aorta and inferior vena cava are normal in caliber. There is no free fluid in the abdomen. US/US abdomen complete IMPRESSION: 1. Coarsened hepatic echotexture with enlargement of the left lobe and a mildly nodular contour, suggestive of cirrhosis. 2. 8 mm right renal cyst. Electronically signed by: Perfecto Choudhary MD 03/31/2025 02:48 PM [facility]
--- OUTSIDE RECORDS SUMMARY | 2025-03-31 18:58 | XMS_ITS | Clinical Summary ---
Author Organization [facility] Address [address] [place] [address] Care Team Providers Care Underwriting Consultant Name Role Phone Amira Tillman MD Primary Care Provider [phone] Social History Tobacco Use Types Packs/Day Years Used Date Smoking Tobacco: Never Assessed Comments Unknown Sex and Gender Information Value Date Recorded Sex Assigned at Not on file Legal Sex Female 2:13 PM EST Gender Identity Not on file Sexual Orientation Not on file Plan of Treatment Health Maintenance Due Date Last Done Comments Breast Cancer Screening 1970 Colorectal Cancer Screening: Colonoscopy 1970 DTaP,Tdap,and Td Vaccines (1 - Tdap) 1989 Hepatitis B Vaccines (1 of 3 - 19+ 3-dose series) 1989 Cervical Cancer Screening: P ap Smear 1991 Pneumococcal Vaccine: 50+ Ye ars (1 of 1 - PCV) 2020 Zoster Vaccines (1 of 2) 2020 HIV Screening 04/06/2022 Hepatitis C Screening 04/06/2022 Social Influencers of Health Screening 04/06/2022 Depression Screening 05/08/2024 COVID-19 Vaccine (1 - 2024-2 6 season) 2025 Influenza Vaccine (#1) 2025 RSV Immunization Adult Patie nts (1 - 1-dose 75+ series) 2045 HIB Vaccines Aged Out No longer eligi [...] age to complete this topic Care Teams Underwriting Consultant Relationship Specialty Start Date End Date Amira Tillman MD [address] [place] [phone] PCP - General 01/31/13
--- OUTSIDE RECORDS SUMMARY | 2025-03-31 18:58 | XMS_ITS | Encounter Summary ---
Author Organization [employer] Address [address] [facility] 7t [place] [address] Care Team Providers Care Carving Machine Operator Name Role Phone Alexander La MD Primary Care Prov ider Reason for Visit * Reason Comments Med Change Request Encounter Details Date Type Department Care Team ([facility] st Contact Info) Description 03/06/[address] [facility] CHC ADULT DENTAL [address] [place] [address] Aminata Rosas DMD Social History Tobacco Use [...] Upcoming Encounters Date Type Department Care Team ([facility] st Contact Info) Description 04/08/2025 1:30 PM EST Telemedicine [facility] MED & PEDS [address] [place] [address] Alexander La MD [address] [place] [address] documented as of this encounter Visit Diagnoses Not on filedocumented in this encounter Care Teams Carving Machine Operator Relationship Specialty Start Date End Date Alexander La MD [address] [place] [address] PCP - General Internal Medicine 09/24/19 Jani Coreas Spinning SupervisorSpout Liner 01/25/23 Doug Posada Jr Spinning SupervisorSpout Liner 05/13/24 documented as of this encounter
--- OUTSIDE RECORDS SUMMARY | 2025-03-31 18:58 | XMS_ITS | Encounter Summary ---
Author Organization [employer] Address [address] [facility] 7t [place] [address] Care Team Providers Care Freelance Graphic Designer Name Role Phone Alexander La MD Primary Care Prov ider Reason for Visit * Reason Onset Date Comments Nurse Triage 07/21/2023 Hep C 07/21/2023 Encounter Details Date Type Department Care Team (Late st Contact Info) Description 07/21/2023 Telephone [facility] MEDICINE [address] [place] [address] Alexander La MD [address] [place] [address] Nurse Triage; Hep C Social History Tobacco [...] Care Team (Late st Contact Info) Description 04/08/2025 1:30 PM EST Telemedicine [facility] MED & PEDS [address] [place] [address] Alexander La MD [address] [place] [address] documented as of this encounter Visit Diagnoses Not on filedocumented in this encounter Care Teams Freelance Graphic Designer Relationship Specialty Start Date End Date Alexander La MD [address] [place] [address] PCP - General Internal Medicine 09/24/19 Jani Coreas StrannerMagnetic Tester 01/25/23 Doug Posada Jr StrannerMagnetic Tester 05/13/24 documented as of this encounter
--- OUTSIDE RECORDS SUMMARY | 2025-03-31 18:58 | XMS_ITS | Encounter Summary ---
Author Organization [employer] Address [address] [facility] 7t [place] [address] Care Team Providers Care Cartography Supervisor Name Role Phone Alexander La MD Primary Care Prov ider Reason for Visit * Reason Comments Med Refill Encounter Details Date Type Department Care Team ([facility] st Contact Info) Description 06/22/2023 Refill [facility] CHC MED & PEDS [address] [place] [address] Elsa Black MD [address] [place] [address] Social History Tobacco Use Types Packs/Day Years Used Date Smoking Tobacco: Every Day Cigarettes 0.5 30 Smokeless Tobacco: Never Alcohol Use Standard Drinks/Week Comments Never 0 (1 standard drink = 0.6 oz pur e alcohol) Housing Stability Answer Date Recorded What is your housing situation today? I do not have housing (Staying with others, in a hotel, in a care home, living outside on the street, on a [...] Info) Description 04/08/2025 1:30 PM EST Telemedicine [facility] MED & PEDS [address] [place] [address] Alexander La MD [address] [place] [address] documented as of this encounter Visit Diagnoses Not on filedocumented in this encounter Care Teams Cartography Supervisor Relationship Specialty Start Date End Date Alexander La MD [address] [place] [address] PCP - General Internal Medicine 09/24/19 Jani Coreas Motion Graphics DesignerPathology Collector 01/25/23 Doug Posada Jr Motion Graphics DesignerPathology Collector 05/13/24 documented as of this encounter
--- OUTSIDE RECORDS SUMMARY | 2025-03-31 18:58 | XMS_ITS | Encounter Summary ---
Author Organization [employer] Address [address] [facility] 7t [place] [address] Care Team Providers Care Compliance Reviewer Name Role Phone Alexander La MD Primary Care Prov ider Reason for Visit * Reason Onset Date Comments PT-1 10/17/2023 Encounter Details Date Type Department Care Team (Late st Contact Info) Description 10/17/2023 Telephone [facility] [address] [place] [address] Alexander La MD [address] [place], [place] [id number] PT-1 Social History Tobacco Use Types Packs/Day Years Used Date Smoking Tobacco: Every Day Cigarettes 0.5 30 Smokeless Tobacco: Never Alcohol Use Standard Drinks/Week Comments Never 0 (1 standard drink = 0.6 oz pur e alcohol) Housing Stability Answer Date Recorded What is your housing situation today? I do not have housing (Staying with others, in a hotel, in a long term, living outside on the street, on a [...] Info) Description 04/08/2025 1:30 PM EST Telemedicine [facility] [address] [place] [address] Alexander La MD [address] [place] [address] documented as of this encounter Visit Diagnoses Not on filedocumented in this encounter Care Teams Compliance Reviewer Relationship Specialty Start Date End Date Alexander La MD [address] [place] [address] PCP - General Internal Medicine 09/24/19 Jani Coreas Manager [employer] SalesPlaten Press Feeder 01/25/23 Doug Posada Jr Manager [employer] Ret[employer] SalesPlaten Press Feeder 05/13/24 documented as of this encounter
--- OUTSIDE RECORDS SUMMARY | 2025-03-31 18:58 | XMS_ITS | Encounter Summary ---
Author Organization [employer] Address [address] [facility] 7[address] [place] [address] Care Team Providers Care Machine Room Operator Name Role Phone Alexander La MD Primary Care Prov ider Reason for Visit * Reason Onset Date Comments Results 11/29/2023 Encounter Details Date Type Department Care Team ([facility] st Contact Info) Description 11/29/2023 Telephone [facility] [address] [place] [address] Alexander La MD [address] [place] [address] Results Social History Tobacco Use Types Packs/Day [...] with others, in a hotel, in a nursing home, living outside on the street, on [...] Info) Description 04/08/2025 1:30 PM EST Telemedicine [facility] [address] [place] [address] Alexander La MD [address] [place] [address] documented as of this encounter Visit Diagnoses Not on filedocumented in this encounter Care Teams Machine Room Operator Relationship Specialty Start Date End Date Alexander La MD [address] [place] [address] PCP - General Internal Medicine 09/24/19 Jani Coreas Motion Picture Equipment MachinistShow Girl 01/25/23 Doug Posada Jr Motion Picture Equipment MachinistShow Girl 05/13/24 documented as of this encounter
--- OUTSIDE RECORDS SUMMARY | 2025-03-31 18:59 | XMS_ITS | Encounter Summary ---
Author Organization [employer] Address [address] [facility] [address] [place] [address] Care Team Providers Care Operations And Maintenance Technician Name Role Phone Alexander La MD Primary Care Prov ider Encounter Details Date Type Department Care Team ([facility] Contact Info) Description 06/16/2022 Telephone [facility] [address] [place] [address] Alexander La MD [address] [place] [address] Social History Tobacco Use Types Packs/Day Years [...] Upcoming Encounters Date Type Department Care Team ([facility] Contact Info) Description 04/08/2025 1:30 PM EST Telemedicine [facility] [address] [place] [address] Alexander La MD [address] [place] [address] documented as of this encounter Visit Diagnoses Not on filedocumented in this encounter Care Teams Operations And Maintenance Technician Relationship Specialty Start Date End Date Alexander La MD [address] [place] [id number] PCP - General Internal Medicine 09/24/19 Jani Coreas Lithographed Plate InspectorManager Of Information 01/25/23 Doug Posada Jr Lithographed Plate InspectorManager Of Information 05/13/24 documented as of this encounter
--- OUTSIDE RECORDS SUMMARY | 2025-03-31 18:59 | XMS_ITS | Encounter Summary ---
Author Organization [employer] Address [address] [facility] [address] [place] [address] Care Team Providers Care Vacuum Repairer Name Role Phone Alexander La MD Primary Care Prov ider Reason for Visit * Reason Onset Date Comments PT1 04/25/2023 Encounter Details Date Type Department Care Team ([facility] st Contact Info) Description 04/25/2023 Telephone [facility] [address] [place] [address] Alexander La MD [address] [place] [address] PT1 Social History Tobacco Use Types Packs/Day Years Used Date Smoking Tobacco: Every Day Cigarettes 0.5 30 Smokeless Tobacco: Never Alcohol Use Standard Drinks/Week Comments Never 0 (1 standard drink = 0.6 oz pur e alcohol) Housing Stability Answer Date Recorded What is your housing situation today? I do not have housing (Staying with others, in a hotel, in a long-term, living outside on the street, on a [...] and was advised to contact PCP office. Rel[place] updated pt address in chart - [address] [place] [address] * Telephone Encounter - Lou Britt - 04/26/2023 9:57 AM EST PT-1 submitted for patient. They will receive a letter of approval or denial in the mail. * Telephone Encounter - Corina Alan - 04/25/2023 10:27 AM EST PT1 needed Date: 05/03/2023 Time: 1:00 Visits: Weekly Address: [address] [place] [address] Facility: [facility] Wheel Chair: Cane Parts Counter Specialist Needed: no documented in this encounter Plan of Treatment Upcoming Encounters Date Type Department Care Team (Late st Contact Info) Description 04/08/2025 1:30 PM EST Telemedicine [facility] [address] [place] [address] Alexander La MD [address] [place] [address] documented as of this encounter Visit Diagnoses Not on filedocumented in this encounter Care Teams Vacuum Repairer Relationship Specialty Start Date End Date Alexander La MD [address] [place] [address] PCP - General Internal Medicine 09/24/19 Jani Coreas Cane Flume Feeding Machine OperatorHandle Attacher 01/25/23 Doug Posada Jr Cane Flume Feeding Machine OperatorHandle Attacher 05/13/24 documented as of this encounter
--- OUTSIDE RECORDS SUMMARY | 2025-03-31 18:59 | XMS_ITS | Encounter Summary ---
Author Organization [employer] Address [address] [facility] 7[address] [place] [address] Care Team Providers Care Terra Cotta Roofer Helper Name Role Phone Alexander La MD Primary Care Prov ider Reason for Visit * Reason Comments Med Refill Encounter Details Date Type Department Care Team ([facility] st Contact Info) Description 10/23/2024 Refill [facility] [address] [place] [address] Alexander La MD [address] [place] [address] Social History Tobacco Use Types Packs/Day Years [...] [facility] [address] [place] [address] Alexander La MD [address] [place] [address] documented as of this encounter Visit Diagnoses Not on filedocumented in this encounter Care Teams Terra Cotta Roofer Helper Relationship Specialty Start Date End Date Alexander La MD [address] [place] [address] PCP - General Internal Medicine 09/24/19 Jani Coreas Director Digital AdvertisingDeveloper Advisor 01/25/23 Doug Posada Jr Director Digital AdvertisingDeveloper Advisor 05/13/24 documented as of this encounter
--- OUTSIDE RECORDS SUMMARY | 2025-03-31 18:59 | XMS_ITS | Clinical Summary ---
Author Organization [employer] Address [address] [facility] [address] [place] [address] Care Team Providers Care Visualization Developer Name Role Phone Alexander La MD Primary Care Prov ider Allergies No known active allergies Medications * This document contains information received from the source organization and may not represent a complete record from that organization. D-1000 Extra Strength 25 MCG (1000 UT) tablet Take 25 mcg by mouth in the morning. 2 Active Blood Pressure kit 1 kit in the morning. 1 kit 3 Active lidocaine (Lidoderm) 5 % patchIndication s:Chronic bilateral low back pain with bilateral sciatica APPLY 1 PATCH TOPICALLY IN THE MORNING. 30 patch 1 4 Active tiZANidine (Zanaflex) 2 MG tabletIndicatio ns:Chronic back pain greater than 3 months duration Take 1 tablet (2 mg) by mouth 3 times daily for 10 days. 30 tablet 4 Active celecoxib (CeleBREX) 200 MG capsule Take 1 capsule by mouth every 12 (twelve) hours. Active clonazePAM (KlonoPIN) 0.5 MG tablet Take 0.5 mg by mouth if needed in the morning, at noon, and at bedtime for anxiety. Active melatonin 5 MG tablet TAKE 2 TABLETS BY MOUTH AT BEDTIME NEEDED 4 Active OLANZapine (ZyPREXA) 20 MG tablet TAKE 1 TABLET BY MOUTH AT BEDTIME VOICES, PARANOIA, MOOD 4 Active perphenazine 4 MG tablet TAKE 1 TABLET BY MOUTH 3 TIMES A DAY FOR ANXIETY/RACING THOUGHTS 4 Active zolpidem (Ambien) 10 MG tablet TAKE 1/2 -1 TABLET BY MOUTH AT BEDTIME NEEDED FOR INSOMNIA Active acetaminophen (Tylenol) 500 MG tablet Take 1 tablet (500 mg) by mouth every 6 (six) hours if needed for mild pain for up to 20 doses. 20 tablet 4 Active omeprazole (PriLOSEC) [address] capsule TAKE 1 CAPSULE BY MOUTH EVERY DAY 90 capsule 3 4 Active loratadine (Claritin) 10 MG tabletIndicatio ns:Seasonal allergies TAKE 1 TABLET BY MOUTH EVERY DAY IN THE MORNING 90 tablet 1 5 Active hydrOXYzine HCl (Atarax) 10 MG tablet TAKE 1 TABLET BY MOUTH TWICE A DAY NEEDED FOR ANXIETY DO NOT TAKE AT SAME TIME KLONOPIN 5 Active levothyroxine (Synthroid, Levoxyl) 125 MCG tablet Take 1 tablet (125 mcg) by mouth Once per day. 90 tablet 2 5 06/24/19 26 Active losartan (Cozaar) 50 MG tablet Take 1 tablet (50 mg) by mouth in the morning. 90 tablet 3 5 09/28/19 26 Active ibuprofen 800 MG tablet TAKE 1 TABLET BY MOUTH EVERY 8 HOURS NEEDED FOR MILD PAIN. 90 tablet 1 5 Active docusate sodium (Colace) 100 MG capsule Take 1 capsule (100 mg) by mouth 2 times daily. 180 capsule 5 Active fluticasone (Flonase) 50 MCG/ACT nasal sprayIndication s:Seasonal allergies Administer 1 spray into each nostril Once per day. Shake gently. Before first use, prime pump. After use, clean tip and replace cap. 48 mL 5 Active cetirizine (ZyrTEC) 10 MG tablet Take 1 tablet (10 mg) by mouth Once per day. 30 tablet 11 5 02/11/20 26 Active Active Problems Problem Noted Date Diagnosed Date Partial nodular transformation of liver 10/30/19 25 Assessment & Plan (02/10/2025 2:21 PM EDT): Pending ultrasound, will follow up with results Assessment & Plan (10/29/2024 10:47 AM EDT): [...] be due to pelvic congestion or non pharmaceutical sales process -intermittent with prolonged course x3 months [...] results as soon as done Benzodiazepine dependence (CMS/HCC) 10/25/2022 Chronic back pain greater than 3 months duration 10/25/2022 Chronic hepatitis C (CMS/HCC) 10/25/2022 Assessment & Plan (12/19/2022 2:21 PM [...] softener, Primary hypertension 09/15/2022 Assessment & Plan (02/10/2025 2:20 PM EDT): Controlled, keep low sodium diet and exercise as tolerated, keep blood pressure log, follow up in 3 months Assessment & Plan (10/29/2024 10:46 AM EDT): [...] EST): -[place] fax mammogram order to [facility] Assessment & Plan (09/15/2022 1:30 PM EDT): Will order a mammogram Screening for lung cancer 09/15/2022 Assessment & Plan (09/15/2022 1:31 PM EDT): >20 pack year hx, will refer for lung cancer screening Encounters Date Type Department Care Team Description 02/10/2025 1:30 PM EDT Telemedicine [facility] [address] [place] [address] Alexander La MD Primary hypertension (Primary Dx); Seasonal allergies; Dietary counseling; Exercise counseling; Chronic hepatitis C without hepatic coma (HCC); Benzodiazepine dependence (CMS/HCC) (HCC); Partial nodular transformation of liver 02/10/2025 Travel 02/03/2025 Telephone [facility] [address] [place], [place] [phone] Alexander La MD No Show 02/03/2025 Telephone [facility] [address] [place] [address] Alexander La MD 02/03/2025 Travel 01/23/2025 Orders Only GENERIC EXTERNAL DATA DEPARTMENT Provider, Generic External Data 01/17/2025 Refill [facility] [address] [place], [place] [phone] Alexander La MD from Last 3 Months [...] Sign Reading Time Taken Comments Blood Pressure 106/88 02/10/2025 1:56 PM EDT Pulse 68 09/27/2024 9:11 AM EDT [...] Info) Description 04/08/2025 1:30 PM EST Tele[facility] [address] [place] [address] Alexander La MD [address] [place] [address] Health Maintenance Due Date Last Done Comments CT Colonography 1970 Colonoscopy 1970 FIT 1970 Sigmoidoscopy 1970 Disability Screening 1970 Alcohol/Substance Use Screening 1982 Pneumococcal Vaccine: 50+ Years (2 of 2 - PCV) 02/12/2019 02/12/2018 RSV Patients and Patients Aged 60 years or older (1 - Risk 50-74 years 1-dose series) 2020 Zoster Vaccines (1 of 2) 2020 FOBT [...] Td or Tdap) 01/16/2030 01/17/2020, 06/30/2012, 01/25/2011 Hepatitis A Vaccines Completed 03/19/2018, 02/16/2018, 05/26/2017, [...] Procedure Name Priority Date/Time Associated Diagnosis Comments US ABDOMEN COMPLETE Routine 03/31/2025 2 :23 PM EST CYTOPATH-CELL ENHANCED Routine 01/23/2025 5:48 PM EDT LIPID PANEL, STANDARD Routine 09/27/2024 12:00 AM [...] Recently Relevant to Health Maintenance Results * US Abdomen Complete (03/31/2025 2:23 PM EST) Anatomical Region Laterality Modality Abdomen Ultrasound 03/31/2025 2:23 PM EST Narrative 03/31/2025 2:51 PM EST [place] [address] Ultrasound Report Signed Patient: Maggie Guerrero MR#: [id number] [id number] : 1970 Acct:[id number] Age/Sex: 54 / F ADM Date: 03/31/25 Loc: HO.US Attending Dr: Alexander Murray MD Ordering Physician: Alexander La MD Date of Service: 03/31/25 Procedure(s): US abdomen complete Accession Number(s): [id number] cc: Alexander La MD Reason for Exam: Nodular liver, renal cysts EXAMINATION: US ABDOMEN HISTORY: Nodular liver, renal cysts TECHNIQUE: Real-time grayscale ultrasound imaging of the abdomen was performed and images were reviewed. COMPARISON: Comparison is made with the prior examination dated 02/25/2020. FINDINGS: Liver: The right lobe of the liver measures 14.2 cm in size. The left lobe of the liver measures 10.4 cm in size. The liver demonstrates coarsened echotexture and mildly nodular contour suggestive of cirrhosis. No focal mass or intrahepatic biliary ductal dilatation is identified. There is normal hepatopedal flow in the portal vein. Gallbladder and biliary tree: The gallbladder is surgically absent. The common bile duct is normal in caliber measuring 6 mm. Kidneys: The right kidney measures 10.6 cm in length and demonstrates a 7 x 5 x 8 mm cyst in the interpolar region. The left kidney measures 11.0 cm in length. The kidneys are otherwise unremarkable, without evidence of solid masses, hydronephrosis, or calculi. Pancreas: The pancreatic head, neck, and body are unremarkable. The pancreatic tail is obscured by bowel gas. Spleen: The spleen is normal in size and contour, measuring 11.0 cm in length. Abdominal aorta and inferior vena cava: The visualized portions of the abdominal aorta and inferior vena cava are normal in caliber. There is no free fluid in the abdomen. US/US abdomen complete IMPRESSION: 1. Coarsened hepatic echotexture with enlargement of the left lobe and a mildly nodular contour, suggestive of cirrhosis. 2. 8 mm right renal cyst. Electronically signed by: Perfecto Choudhary MD 03/31/2025 02:48 PM EST Dictated By: Perfecto Choudhary MD Signed By: <Electronically signed by Perfecto Choudhary MD in OV> 03/31/25 1448 DD/ 1423 TD/TT: 03/31/25 1436 Apprentice Lineman Third Step: Procedure Note Donotuseinterpreter, Image - 03/31/2025 [place] [address] Ultrasound Report Signed Patient: Maggie GuerreroMR#: [id number] 796 : 1970Acct:[id number] Age/Sex: 54 / FADM Date: 03/31/25 Loc: .US Attending Dr: Alexander Murray MD Ordering Physician: Alexander La MD Date of Service: 03/31/25 Procedure(s): US abdomen complete Accession Number(s): [id number] cc: Alexander La MD Reason for Exam: Nodular liver, renal cysts EXAMINATION: US ABDOMEN HISTORY: Nodular liver, renal cysts TECHNIQUE: Real-time grayscale ultrasound imaging of the abdomen was performed and images were reviewed. COMPARISON: Comparison is made with the prior examination dated 02/25/2020. FINDINGS: Liver: The right lobe of the liver measures 14.2 cm in size. The left lobe of the liver measures 10.4 cm in size. The liver demonstrates coarsened echotexture and mildly nodular contour suggestive of cirrhosis. No focal mass or intrahepatic biliary ductal dilatation is identified. There is normal hepatopedal flow in the portal vein. Gallbladder and biliary tree: The gallbladder is surgically absent. The common bile duct is normal in caliber measuring 6 mm. Kidneys: The right kidney measures 10.6 cm in length and demonstrates a 7 x 5 x 8 mm cyst in the interpolar region. The left kidney measures 11.0 cm in length. The kidneys are otherwise unremarkable, without evidence of solid masses, hydronephrosis, or calculi. Pancreas: The pancreatic head, neck, and body are unremarkable. The pancreatic tail is obscured by bowel gas. Spleen: The spleen is normal in size and contour, measuring 11.0 cm in length. Abdominal aorta and inferior vena cava: The visualized portions of the abdominal aorta and inferior vena cava are normal in caliber. There is no free fluid in the abdomen. US/US abdomen complete IMPRESSION: 1. Coarsened hepatic echotexture with enlargement of the left lobe and a mildly nodular contour, suggestive of cirrhosis. 2. 8 mm right renal cyst. Electronically signed by: Perfecto Choudhary MD 03/31/2025 02:48 PM EST Dictated By: Perfecto Choudhary MD Signed By: <Electronically signed by Perfecto Choudhary MD in OV> 03/31/25 1448 DD/ 1423 TD/TT: 03/31/25 1436 Apprentice Lineman Third Step: us Alexander Murray MD IM US PROCEDURES Final Result * Cytopath-cell enhanced (01/23/2025 5:48 PM EDT) 01/23/2025 5:48 PM EDT 01/24/2025 8:30 AM EDT [facility] - 01/27/2025 10:43 AM EDT ----- ------- Name: Maggie Guerrero Age/Sex: 54/F : 1970 Unit#: [id number] Attend Dr: Cece Go [facility] Re01/23/25 Status: [facility] Disch: ----- ------- SPEC : [id number] RECD: 01/24/25 STATUS: TABITHA SANHCEZ NUM: [id number] AUBREE: 01/23/25 [facility] DR: Cece Go [facility] ENTERED: 01/24/25 SP TYPE: Cytology OTHR DR: Alexander La MD ORDERED: Cyto-enhanced Diagnosis Urine: Negative for high-grade urothelial carcinoma. See comment. COMMENT: Cellular specimen consisting of few single urothelial cells, squamous cells, occasional red blood cells and occasional lymphocytes. Clinical History Microscopic hematuria Material Received Urine Gross Description Received is 17 cc of cloudy yellow fluid from which a ThinPrep slide is prepared. IHC S/NG Disclaimer NOTE: Unless otherwise stated, all tissue is formalin-fixed and paraffin-embedded. Some or all of the immunohistochemical tests reported herein may have been developed and their performance characteristics determined by [facility]. They have not been cleared or approved by the U.S. Food and Drug Administration (FDA). However, the FDA has determined that such clearance or approval is not necessary. This laboratory is certified under the Clinical Laboratory Improvement Amendments of 1988 (CLIA) as qualified to perform high complexity clinical laboratory testing. Copies To: Alexander La MD [address] [address] Cece Go [facility] [address] [place] [address] Dr. La[address] [place], [place] [phone] [email or web address] CONTINUED ON NEXT PAGE ----- ------- Name: Maggie Guerrero Age/Sex: 54/F : 1970 Unit#: [id number] Attend Dr: Cece Go [facility] Re01/23/25 Status: DEP REF Location: [facility] Disch: ----- ------- SPEC : [id number] RECD: 01/24/25 STATUS: TABITHA SANCHEZ NUM: [id number] AUBREE: 01/23/25 [facility] DR: Cece Go [facility] ENTERED: 01/24/25 SP TYPE: Cytology OTHR DR: Alexander La MD ORDERED: Cyto-enhanced ----- ------- Signed (signature on file) Marquise Wright MD 01/27/25 1043 ----- ------- END OF REPORT Generic External Data Provider LAB CYTOLOGY ORDE RABKENY Final Result Performing Organization Address City/[facility]/ZIP Co de Phone Number [facility] [address] [place] [phone] * (ABNORMAL) Lipid Panel, Standard (09/27/2024 12:00 AM EDT) Triglycerides 160(H) <150 mg/dL [facility] Comment:Desirable Triglyceri de: less than 150 mg/dLBorderline High Triglyceride 150-199 mg/dLHigh Triglyceride: 200-499 mg/dLVery High Triglyceride: greater than or equal to 5OO mg/dL Cholesterol 176 <200 mg/dL [facility] Comment:Desirable Cholestero l: less than 200 mg/dLBorderline High Cholesterol: 200-239 mg/dLHigh Cholesterol: greater than 239 mg/dL LDL Cholesterol Calculated 103(H) <100 mg/dL [facility] Comment:Desirable LDL: less than 100 mg/dLNear Optimal/Above Optimal LDL: 110- 129 mg/dLBorderline High LDL: 130-159 mg/dLHigh LDL: 160-189 mg/dLVery High LDL: greater than or equal to 190 mg/dL HDL Cholesterol 41 >40 mg/dL [facility] Comment:Desirable HDL: great er than 40 mg/dL Note: This HDL assay may give artificially low results in patients with liver disease. Blood Venous blood specimen / Unknown 09/27/2024 09/27/2024 Alexander Murray MD LAB BLOOD ORDERABL ES Final Result Performing Organization Address City/[facility]/ZIP Co de Phone Number [facility] [address] [place] [phone] [phone] * BI Mammogram Screening Tomosynthesis Bilateral (05/12/2023 2:10 PM EST) Anatomical Region Laterality Modality Breast Bilateral Mammography 05/12/2023 2:10 PM EST Narrative 05/30/2023 4:34 PM EST Michelle [facility] [address] [place] [address] Mammography Report Signed Patient: Maggie Guerrero MR#: [id number] [id number] : 1970 Acct:[id number] Age/Sex: 53 / F ADM Date: 05/12/23 Loc: HO.MAMMO Attending Dr: Alexander Murray MD Ordering Physician: Alexander La MD Res ults: 1Negative Date of Service: 05/12/23 Follow Up: 1 Year From Orig inal Mammogram Procedure(s): MM tomosynthesis screening BI Accession Number(s): [id number] cc: Alexander La MD EXAMINATION: MM SCREENING [...] in OV> 05/30/23 1630 DD/ 1410 TD/TT: Apprentice Lineman Third Step: Procedure Note Donotuseinterpreter, Image - 05/30/2023 [place] [facility] [address] [place], [place] [address] Mammography Report Signed Patient: Maggie GuerreroMR#: [id number] : 1970Acct:[id number] Age/Sex: 53 / FADM Date: 05/12/23 Loc: HO.MAMMO Attending Dr: Alexander Murray MD Ordering Physician: Alexander La ults: 1Negative Date of Service: 05/12/23Follow Up: 1 Year From Orig inal Mammogram Procedure(s): MM tomosynthesis screening BI Accession Number(s): [id number] cc: Alexander La MD EXAMINATION: MM SCREENING [...] in OV> 05/30/23 1630 DD/ 1410 TD/TT: Apprentice Lineman Third Step: Alexander Murray MD IMG BI PROCEDURES Final Result * HPV mRNA E6/E7 w/Reflex to HPV Genotypes 16, 18/45 (04/04/2023 12:00 AM EST) HPV nRNA E6/E7 Not Detected Not Detected [facility] Comment:Methodology: Transcr iption-Mediated AmplificationThis assay detects E6/E7 viral messenger RNA (mRNA) from 14high-risk HPV types (16,18,31,33,35,39,45,51,52,56,58,59,66,68).Cervical sources are required for HPV testing.If a vaginal source from a patient who has had atotal hysterectomy with removal of cervix wassubmitted, please contact the testing laboratoryfor alternative testing options.For additional information, please refer tohttp://education.Cheezburger/faq/KKY335v5(This link if provided for information/educational purposes only.)THIS TEST WAS PERFORMED AT:[facility] [place] [id number] BAUTISTA MD HPV mRNA E6/E7 TNP [facility] HPV 16 RNA [facility] HPV 18/45 RNA [facility] 04/04/2023 2023 8:0 0 AM EST us Elbert Yousif [facility] CYTOLOGY ORDERABLES F inal Result [facility] [address] [place] [phone] * Pap Smear (04/04/2023 12:00 AM EST) 04/04/2023 2023 8:0 0 AM EST Narrative [facility] - 04/16/2023 10:06 AM EST ----- ------- Name: Maggie Guerrero Age/Sex: 52/F : 1970 Unit#: [id number] Attend Dr: ELBERT YOUSIF Panchito Re04/04/23 Status: DEP REF Location: HO.CHCLNP Disch: ----- ------- SPEC : [id number] RECD: 04/05/23 STATUS: TABITHA SANCHEZ NUM: [id number] AUBREE: 04/04/23-[address]: ELBERT YOUSIF [facility] ENTERED: 04/05/23 SP TYPE: Pap Smr OTHR [...] 59, 66, 68) HPV testing performed by [employer], [place], [place]. See reference laboratory portion of the EMR for entire report. Clinical Information LMP: Postmenopausal Previous PAP test: 2019, WNL Material Received ThinPrep-Cervical ----- ------- Signed (signature on file) Marquies Wright MD 04/16/23 1006 ----- ------- END OF REPORT Elbert Vasquezshe [facility] CYTOLOGY ORDERABLES F inal Result [facility] [address] [place] [phone] * Cologuard?? colon cancer screening (03/27/2023 8:11 AM EST) Pathologist [facility] Cologuard Result Negative Negative 04/07/20 5:15 PM EST [employer] (CLIA #:[id number]) Comment: NEGATIVE TEST RESULT. A negative Cologuard [...] screened with both Cologuard and colonoscopy. (Olivia Quach al, N Engl J Med 2014;370(14):1721-0568) The normal value (reference range) for this assay is negative. COLOGUARD RE-SCREENING RECOMMENDATION: Periodic colorectal cancer screening is an important part of preventive healthcare for asymptomatic individuals at average risk for colorectal cancer. Following a negative Cologuard result, the [place] Cancer Society and U.S. Multi-Society Task Force screening guidelines recommend a Cologuard re-screening interval of 3 years. References: [place] [employer] Society Guideline for Colorectal Cancer Screening: https://www.cancer.org/cancer/ebpru-fdpzvd-tqmkus/kszgyrubb-oomrkyjlz-qliqnay/ac s-rec [facility] medical centerdations.html.; Francisco DK, Kayla CR, Adriano EasonK, Colorectal Cancer Screening: Recommendations for Physicians and Patients from the U.S. Multi-Society Task Force on Colorectal Cancer Screening , Am J Gastroenterology 2017; 112:6580-9638. TEST DESCRIPTION: Composite algorithmic analysis of stool [...] screened with both Cologuard and colonoscopy. (Olivia Quach al, N Engl J Med 2014;370(14):3915-5560.) Cologuard may produce a false negative or false positive result (no colorectal cancer or precancerous polyp present at colonoscopy follow up). A negative Cologuard test result does not guarantee the absence of CRC or advanced adenoma (pre-cancer). The current Cologuard screening interval is every 3 years. ([place] Cancer Society and U.S. Multi-Society Task Force). Cologuard performance data in a 10,000 patient pivotal study using colonoscopy as the reference method can be accessed at the following location: www.[employer].Privepass/results. Additional description of the Cologuard test process, warnings and precautions can be found at www.[place].[employer]pass. Stool specimen (specimen) 03/27/2023 8:11 AM EST 03/29/2023 5:57 PM EST Alexander Murray MD LAB MOLECULAR DIAG NOSTICS ORDERABLES Final Result Performing Organization Address City/[facility]/ZIP Co de Phone Number [facility] (CLIA #:[id number]) [place] [address], [place] [phone] * HIV-1/2 Antigen and Antibodies, Fourth Generation, with Reflexes (03/15/2023 9:04 AM EST) [facility] HIV AB/AG Nonreactive Nonreactive [facility] Comment:HIV-1 p24 Ag and/or HIV-1/HIV-2 Ab not detected.A test result that is nonreactive does not exclude thepossibility of exposure to or infection with HIV-1 and/orHIV-2. Nonreactive results in this assay for individualswith prior exposure to HIV-1 and/or HIV-2 may be due toantigen and antibody levels that are below the limit ofdetection of this assay.[employer] HIV Ag/Ab Combo assay result andsupplemental assay results should be interpreted inconjunction with the patient's clinical presentation,history and other laboratory results. If the results areinconsistent with clinical evidence, additional testing issuggested to confirm the result. 03/15/2023 9:04 AM EST 03/15/2023 2:21 PM EST Alexander Murray MD LAB BLOOD ORDERABL ES Final Result Performing Organization Address City/[facility]/ZIP Co de Phone Number [facility] [address] [place] [phone] from Last 3 Months or Most Recently Relevant to Health Maintenance Insurance [facility] C3 [facility] MEDICAID STAND ADULT Care Teams Visualization Developer Relationship Specialty Start Date End Date Alexander La MD [address] [place] [phone] PCP - General Internal Medicine 09/24/19 Jani Coreas Manager UtilizationFurniture Repairer 01/25/23 Doug Posada Jr Manager UtilizationFurniture Repairer 05/13/24
--- OUTSIDE RECORDS SUMMARY | 2025-03-31 18:59 | XMS_ITS | Encounter Summary ---
Author Organization [employer] Address [address] [facility] [address] [place] [address] Care Team Providers Care Superintendent Storage Area Name Role Phone Alexander La MD Primary Care Prov ider Reason for Visit * Reason Onset Date Comments PT1 10/11/2023 Encounter Details Date Type Department Care Team ([facility] st Contact Info) Description 10/11/2023 Telephone [facility] [address] [place], [place] [phone] Alexander La MD [address] [place], [place] [phone] PT1 Social History Tobacco Use Types Packs/Day [...] Y/N: Yes Provider name or facility name: [facility] Facility Address: [address] [place] [address] Escort needed: Y/N: No Do you have a wheelchair: Y/N: No If yes- Manual or electric: n/a Visits: n/a documented in this encounter Plan of Treatment Upcoming Encounters Date Type Department Care Team ([facility] st Contact Info) Description 04/08/2025 1:30 PM EST Telemedicine [facility] [address] [place] [address] Alexander La MD [address] [place] [address] documented as of this encounter Visit Diagnoses Not on filedocumented in this encounter Care Teams Superintendent Storage Area Relationship Specialty Start Date End Date Alexander La MD [address] [place] [address] PCP - General Internal Medicine 09/24/19 Jani Coreas Servomechanism DesignerCabinetmaker Supervisor 01/25/23 Doug Posada Servomechanism DesignerCabinetmaker Supervisor 05/13/24 documented as of this encounter
--- OUTSIDE RECORDS SUMMARY | 2025-03-31 18:59 | XMS_ITS | Encounter Summary ---
Author Organization [employer] Address [address] [place] [address] Care Team Providers Care Valet Manager Name Role Phone Alexander La MD Primary Care Prov ider Reason for Visit * Reason Comments Med Refill Encounter Details Date Type Department Care Team ([facility] st Contact Info) Description 04/13/2024 Refill [facility] [address] [place] [address] Alexander La MD [address] [place] [address] Social History Tobacco Use Types Packs/Day Years Used Date Smoking Tobacco: Every Day Cigarettes 0.5 30 Passive Smoke Exposure: Current Smokeless Tobacco: Never Alcohol Use Standard Drinks/Week Comments Never 0 (1 standard drink = 0.6 oz pur e alcohol) Housing Stability Answer Date Recorded What is your housing situation today? I do not have housing (Staying with others, in a hotel, in a correction, living outside on the street, on a [...] 04/08/2025 1:30 PM EST Telemedicine [facility] [address] [place] [address] Alexander La MD [address] [place] [address] documented as of this encounter Visit Diagnoses Not on filedocumented in this encounter Care Teams Valet Manager Relationship Specialty Start Date End Date Alexander La MD [address] [place] [address] PCP - General Internal Medicine 09/24/19 Jani Coreas [employer] 01/25/23 Doug Posada Jr [employer] 05/13/24 documented as of this encounter
--- OUTSIDE RECORDS SUMMARY | 2025-03-31 18:59 | XMS_ITS | Encounter Summary ---
Author Organization [employer] Address [address] [facility] [facility] [address] [place] [address] Care Team Providers Care Setter Off Name Role Phone Alexander La MD Primary Care Prov ider Reason for Visit * Reason Onset Date Comments rs cancelled appt due to covid resident 11/20/19 Encounter Details Date Type Department Care Team (Late st Contact Info) Description 11/19/2024 Telephone [facility] [address] [place] [address] Georgie Toro, DDS [address], [place] [phone] rs cancelled appt due to covid resident [...] Info) Description 04/08/2025 1:30 PM EST Telemedicine [facility] [address] [place] [address] Alexander La MD [address] [place] [address] documented as of this encounter Visit Diagnoses Not on filedocumented in this encounter Additional Health Concerns Assessment Noted Time PHQ-9 Depression Total Score: 4 10/29/19 25 8:50 AM EDT documented as of this encounter Care Teams Setter Off Relationship Specialty Start Date End Date Mc Murray, Alexander, MD [address] [place] [id number] PCP - General Internal Medicine 09/24/19 Jani Coreas [employer] 01/25/23 Doug Posada Jr [employer] 05/13/24 documented as of this encounter
== END 2025-03-31 14:03 | disposition home or self-care (01) ==
LOC: HO.US 14:02
PROVIDERS: PCP Internal Medicine; Visit Provider Internal Medicine
DX: K76.89 Other specified diseases of liver (principal); N28.1 Cyst of kidney, acquired
CPT/HCPCS: 76700

== ENCOUNTER → 2025-03-31 14:05 | Outpatient (BNV) | payer MEDICAID, SELFPAY | PROVIDERS: PCP Internal Medicine; Visit Provider Radiology Diagnostic Radiology | DX: N28.1 Cyst of kidney, acquired (principal) | CPT/HCPCS: 76700 ==